=== PATIENT | female | born 2005 | race Caucasian/White ===

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

== ENCOUNTER 2025-01-27 15:34 | Outpatient (OUT) | payer BC, OTHER, SELFPAY ==
[2025-01-27 16:00] LABS: Basophils Absolute Auto 0.1 10^3/uL (0.0-0.1); Basophils Percent Auto 0.8 % (0.2-2.0); Eosinophils Absolute Auto 0.2 10^3/uL (0.0-0.7); Eosinophils Percent Auto 3.4 % (0.9-7.0); Hematocrit 37.4 % (36.0-48.0); Hemoglobin 12.4 g/dL (12.0-16.0); Immature Granulocytes Abs Auto 0.01 10^3/uL (0.00-0.03); Immature Granulocytes Pct Auto 0.2 % (0.0-0.5); Lymphocytes Absolute Auto 1.6 10^3/uL (1.2-3.8); Lymphocytes Percent Auto 25.7 % (20.5-60.0); Mean Corpuscular HGB Conc 33.2 g/dL (29.9-35.2); Mean Corpuscular Volume 90.6 fL (81.0-99.0); Mean Platelet Volume 8.6 fL (9.5-13.5); Monocytes Absolute Auto 0.7 10^3/uL (0.3-0.8); Monocytes Percent Auto 10.2 % (1.7-12.0); Neutrophils Absolute Auto 3.8 10^3/uL (1.4-6.5); Neutrophils Percent Auto 59.7 % (43.0-75.0); Platelet Count 285 10^3/uL (150-450); Red Blood Count 4.13 10^6/uL (4.20-5.40); Red Cell Distribution Width 12.9 % (11.0-15.0); White Blood Count 6.4 10^3/uL (4.0-11.0)
[2025-01-27 16:34] LABS: Percent Iron Saturation 33.9 %
[2025-01-27 16:44] LABS: Alanine Aminotransferase 22 U/L (14-59); Albumin Globulin Ratio 1.2; Albumin Level 4.3 g/dL (3.4-5.0); Alkaline Phosphatase 74 U/L (46-116); Aspartate Amino Transferase 15 U/L (15-37); BUN Creatinine Ratio 17.6; Bilirubin Direct 0.1 mg/dL (0.0-0.2); Bilirubin Total 0.6 mg/dL (0.2-1.0); Calcium 9.5 mg/dL (8.5-10.1); Carbon Dioxide 26.8 mmol/L (21.0-32.0); Chloride 104 mmol/L (98-107); Estimated GFR (African America >60 (>=60 mL/min/1.73m^2); Estimated GFR (Non-African Ame >60 (>=60 mL/min/1.73m^2); Globulin 3.7 g/dL; Glucose 90 mg/dL (74-106); Potassium 3.8 mmol/L (3.5-5.1); Sodium 138 mmol/L (136-145)
[2025-01-27 16:47] LABS: Free T4 1.01 ng/dL (0.78-1.34)
[2025-01-29 04:07] LABS: Vitamin B12 597 pg/mL (232-1245)
== END 2025-01-27 15:35 | disposition home or self-care (01) ==
PROVIDERS: PCP Family Medicine; Visit Provider Family Medicine
DX: Z00.00 Encounter for general adult medical examination without abnormal findings (principal); G90.9 Disorder of the autonomic nervous system, unspecified; R53.83 Other fatigue
CPT/HCPCS: 36415; 80048; 80076; 82607; 82728; 83540; 83550; 84439; 84443; 85025

== ENCOUNTER 2025-02-11 12:03 | Outpatient (OUT) | payer BC, OTHER, SELFPAY ==
--- OUTSIDE RECORDS SUMMARY | 2025-02-10 16:35 | XMS_ITS | CCD ---
Author Organization [facility] Care Team Providers Care [employer] Technician Name Role Phone DR DESIREE PEARL Attending Unavailable DR DESIREE PEARL Admitting Unavailable DR ARMEN MORRIS Consulting Unavailable DR DESIREE PEARL Consulting Unavailable Medications Current Medications Medication Drug Class(es) Dates Sig (Normalized) Sig (Original) cephalexin 500 mg oral capsule (1 source) Cephalosporin Antibacterial Start: 05-15-2024 take 500 mg by mouth twice daily Cephalexin Active 500 MG PO Twice daily 14 7 May 15, 2024 12:00am nabumetone 500 mg oral tablet (1 source) Nonsteroidal Anti-inflammatory Drug Start: 05-15-2024 Nabumetone Active MG PO May 15, 2024 12:00am Problems Problem Classification Problem Date Documented Da te Episodic/Chronic Other gastrointestinal disorders (1 source) Other constipation; Translations: [OTHER CONSTIPATION] Onset: 03-06-2022 Episodic Poisoning by nonmedicinal substances (2 sources) Bee sting; Translations: [Toxic effect of venom of bees, accidental (unintentional), initial encounter] 05-15-2024 Episodic Results Test Name Value Interpretation Reference Range Facil ity CBC AUTO DIFFon 03-01-2022 BASO # 0.1 103/ul Normal 0.0-0.1 [facility] Comment on above: Performed By: #### C BC #### [facility] [address] [address] [address] Jay Stewart Basophils/100 WBC (Bld) 0.6 % Normal 0.2-2.0 [facility] Comment on above: Performed By: #### C BC #### [facility] [address] [address] [address] Jay Stewart EO # 0.1 103/ul Normal 0.0-0.7 [facility] Comment on above: Performed By: #### C BC #### [facility] [address] [place] [address] Dr. Jay Stewart Eosinophils/100 WBC (Bld) 0.6 % Critically low 0.9-7.0 [facility] Comment on above: Performed By: #### C BC #### [facility] [address] [place] [address] Dr. Jay Stewart Erythrocyte distribution width (RBC) [Ratio] 13.0 % Normal 11.0-15.0 [facility] Comment on above: Performed By: #### C BC #### [facility] [address] [place] [address] Dr. Jay Stewart Hematocrit (Bld) [Volume fraction] 41.8 % Normal 36.0-48.0 [facility] Comment on above: Performed By: #### C BC #### [facility] [address] [place] [address] Dr. Jay Stewart Hemoglobin (Bld) [Mass/Vol] 13.9 g/dL Normal 12.0-16.0 [facility] Comment on above: Performed By: #### C BC #### [facility] [address] [place] [address] Dr. Jay Stewart IG # 0.03 10e3/ul Normal 0.00-0.03 [facility] Comment on above: Performed By: #### C BC #### [facility] [address] [place] [address] Dr. Jay Stewart IG % 0.3 % Normal 0.0-0.5 [facility] Comment on above: Performed By: #### C BC #### [facility] [address] [place] [address] Dr. Jay Stewart LYMPH # 1.9 103/ul Normal 1.2-3.8 [facility] Comment on above: Performed By: #### C BC #### [facility] [address] [place] [address] Dr. Jay Stewart Lymphocytes/100 WBC (Bld) 18.0 % Critically low 20.5-60.0 [facility] Comment on above: Performed By: #### C BC #### [facility] [address] [place] [address] Dr. Jay Stewart MANUAL DIFF REQ NO Normal [facility] Comment on above: Performed By: #### C BC #### [facility] [address] [place] [address] Dr. Jay Stewart MCH (RBC) [Entitic mass] 30.4 pg Normal 26.7-34.0 [facility] Comment on above: Performed By: #### C BC #### [facility] [address] [place] [address] Dr. Jay Stewart MCHC (RBC) [Mass/Vol] 33.3 g/dL Normal 29.9-35.2 [facility] Comment on above: Performed By: #### C BC #### [facility] [address] [place] [address] Dr. Jay Stewart MCV (RBC) [Entitic vol] 91.5 fL Normal 79.1-95.6 [facility] Comment on above: Performed By: #### C BC #### [facility] [address] [place] [address] Dr. Jay Stewart MONO # 0.7 103/ul Normal 0.3-0.8 [facility] Comment on above: Performed By: #### C BC #### [facility] [address] [place] [address] Dr. Jay Stewart Monocytes/100 WBC (Bld) 6.3 % Normal 1.7-12.0 [facility] Comment on above: Performed By: #### C BC #### [facility] [address] [place] [address] Dr. Jay Stewart NEUT # 7.7 103/ul Critically high 1.4-6.5 [facility] Comment on above: Performed By: #### C BC #### [facility] [address] [place] [address] Dr. Jay Stewart Neutrophils/100 WBC (Bld) 74.2 % Normal 43.0-75.0 [facility] Comment on above: Performed By: #### C BC #### [facility] [address] [place] [address] Dr. Jay Stewart Platelet mean volume (Bld) [Entitic vol] 8.9 fL Critically low 9.5-13.5 [facility] Comment on above: Performed By: #### C BC #### [facility] [address] [place] [address] Dr. Jay Stewart PLT 277 103/ul Normal 150-450 [facility] Comment on above: Performed By: #### C BC #### [facility] [address] [address] [address] Jay Stewart RBC 4.57 106/ul Normal 3.40-5.30 [facility] Comment on above: Performed By: #### C BC #### [facility] [address] [place] [address] Dr. Jay Stewart WBC 10.4 103/ul Normal 4.0-11.0 [facility] Comment on above: Performed By: #### C BC #### [facility] [address] [place] [address] Dr. Jay Stewart LIVER PROFILEon 03-01-2022 Albumin [Mass/Vol] 5.0 g/dL Normal 3.4-5.0 [facility] Comment on above: Performed By: #### T JERROD, LIVER, BMP #### [facility] [address] [place] [address] Dr. Jay Stewart Albumin/Globulin [Mass ratio] 1.3 {ratio} Normal [facility] Comment on above: Performed By: #### T JERROD, LIVER, BMP #### [facility] [address] [place] [address] Dr. Jay Stewart ALP [Catalytic activity/Vol] 84 U/L Normal 65-260 [facility] Comment on above: Performed By: #### T JERROD, LIVER, BMP #### [facility] [address] [place] [address] Dr. Jay Stewart ALT [Catalytic activity/Vol] 14 U/L Normal 14-59 [facility] Comment on above: Performed By: #### T JERROD, LIVER, BMP #### [facility] [address] [address] [address] Jay Stewart AST [Catalytic activity/Vol] 12 U/L Critically low 15-37 [facility] Comment on above: Performed By: #### T , LIVER, BMP #### [facility] [address] [place] [address] Dr. Jay Stewart BILI, CONJUGATED 0.3 mg/dL Normal 0.0-0.3 [facility] Comment on above: Performed By: #### T , LIVER, BMP #### [facility] [address] [place] [address] Dr. Jay Stewart Bilirubin [Mass/Vol] 1.7 mg/dL Critically high 0.2-1.3 [facility] Comment on above: Performed By: #### T , LIVER, BMP #### [facility] [address] [place] [address] Dr. Jay Stewart Globulin (S) [Mass/Vol] 3.9 g/dL Normal [facility] Comment on above: Performed By: #### T , LIVER, BMP #### [facility] [address] [place] [address] Dr. Jay Stewart Protein [Mass/Vol] 8.9 g/dL Critically high 6.1-8.2 [facility] Comment on above: Performed By: #### T , LIVER, BMP #### [facility] [address] [place] [address] Dr. Jay Stewart PROF CHEM 8 (BAS METB)on Anion gap [Moles/Vol] 14.9 mmol/L Normal [facility] Comment on above: Performed By: #### T , LIVER, BMP #### [facility] [address] [place] [address] Dr. Jay Stewart Calcium [Mass/Vol] 9.4 mg/dL Normal 8.5-10.1 [facility] Comment on above: Performed By: #### T , LIVER, BMP #### [facility] [address] [place] [address] Dr. Jay Stewart Chloride [Moles/Vol] 102 mmol/L Normal 98-107 [facility] Comment on above: Performed By: #### T JERROD, LIVER, BMP #### [facility] [address] [address] [address] Jay Stewart CO2 [Moles/Vol] 25.5 mmol/L Normal 22.0-30.0 [facility] Comment on above: Performed By: #### T JERROD, LIVER, BMP #### [facility] [address] [place] [address] Dr. Jay Stewart Creatinine [Mass/Vol] 0.78 mg/dL Normal 0.52-1.04 [facility] Comment on above: Performed By: #### T JERROD, LIVER, BMP #### [facility] [address] [place] [address] Dr. Jay Stewart Glucose [Mass/Vol] 91 mg/dL Normal 74-106 [facility] Comment on above: Performed By: #### T JERROD, LIVER, BMP #### [facility] [address] [place] [address] Dr. Jay Stewart Potassium [Moles/Vol] 4.4 mmol/L Normal 3.4-5.0 [facility] Comment on above: Performed By: #### T JERROD, LIVER, BMP #### [facility] [address] [place] [address] Dr. Jay Stewart Sodium [Moles/Vol] 138 mmol/L Normal 137-145 [facility] Comment on above: Performed By: #### T JERRDO, LIVER, BMP #### [facility] [address] [place] [address] Dr. Jay Stewart Urea nitrogen [Mass/Vol] 14.0 mg/dL Normal 6.4-19.3 [facility] Comment on above: Performed By: #### T JERROD, LIVER, BMP #### [facility] [address] [place] [address] Dr. Jay Stewart Urea nitrogen/Creatinine [Mass ratio] 17.9 mg/mg Normal [facility] Comment on above: Performed By: #### T JERROD, LIVER, BMP #### [facility] [address] [place] [address] Dr. Jay Stewart TSHon 03-01-2022 TSH 2.496 uIU/mL Normal 0.430-3.750 [facility] Comment on above: Performed By: #### T JERROD, LIVER, BMP #### [facility] [address] [address] [address] Jay Stewart TSH RANGE SEE BELOW Normal [facility] Comment on above: Result Comment: <0.3 4 UIU/ml HYPERTHYROID 0.34-5.60 UIU/ml EUTHYROID >5.60 UIU/ml HYPOTHYROID Performed By: #### T JERROD, LIVER, BMP #### [facility] [address] [address] [address] Jay Stewart XR ABD FLAT_UPon 03-01-2022 XR ABD FLAT_UP EXAMINATION: XR ABD FLAT_UP HISTORY: Constipation , lower abdominal pain COMPARISON: No relevant comparison available. FINDINGS: BOWEL GAS PATTERN: Moderate large amount of stool throughout the colon. No abnormal bowel dilation or obstruction. FREE AIR: None. CALCIFICATIONS: None significant. BONES: No fracture or visible bone lesion. OTHER: Thin spiral structure overlying the right pelvis which appears to be outside of the cecum, and most likely represents overlying artifact such as a hair band. IMPRESSION: 1. No visible obstruction. Moderate large stool burden. 2. Suspect artifact overlying right pelvis. If clinical concern consider follow-up radiograph. Electronically authenticated by: ARMEN MORRIS Date: 2022-03-01 16:57 Normal [facility] Vital Signs Date Time Vital Sign Value Performing Clinician Oleg phan 05-15-2024 16:42-0400 Body height 147.32 cm [facility] 05-15-2024 16:42-0400 Body mass index (BMI) [Percentile] Per age and sex 46.3 % [facility] 05-15-2024 16:42-0400 Body mass index (BMI) [Ratio] 21.3 kg/m2 [facility] 05-15-2024 16:42-0400 Body temperature 97.5 [degF] [facility] 05-15-2024 16:42-0400 Body weight 46.32 kg [facility] 05-15-2024 16:42-0400 Diastolic blood pressure 81 mm[Hg] [facility] 05-15-2024 16:42-0400 Heart rate 90 /min [facility] 05-15-2024 16:42-0400 Respiratory rate 18 /min [facility] 05-15-2024 16:42-0400 SaO2% (BldA) [Mass fraction] 99 % [facility] 05-15-2024 16:42-0400 Systolic blood pressure 117 mm[Hg] [facility] Encounters Encounter Date Encounter Type Care Provider Facility Start: 05-15-2024 End: 05-15-2024 ambulatory [facility] Work Phone: Start: 05-15-2024 End: 05-15-2024 Patient encounter procedure [facility] Work Phone: Start: 03-06-2022 Encounter for routin e child health examination without abnormal findings DR DESIREE PEARL [facility] Start: 03-01-2022 End: 03-02-[address] DESIREE PEARL Facility:[facility] Start: 03-01-2022 End: 03-02-2022 Encounter for routine child health examination without abnormal findings DR DESIREE PEARL Facility:[facility] Plan of Treatment Date Care Activity Detail Author [facility] Payers Date Payer Category Payer Unknown [id number] 1959 Unknown [id number] 1959 Unknown [id number] Unknown [place]/BS [id number] Social History Date Type Detail Facility Tobacco smoking stat us NHIS Unknown if ever smoked [facility] Work Phone: Start: 2005 Sex Assigned At Female F [facility] Evaluation note Note Date & Type Note Facility Evaluation note Diagnosis Onset Date Bee sting reaction acute [facility] Work Phone: Summary Purpose Family History No Family History Records Found Advance Directives Advance Directive Response Recorded Date/ Time Advance Directives No May 15 4:31pm Chief Complaint and Reason for Visit Chief Complaint bee sting right anastasia om right foot Reason for Visit Bee sting reaction Additional Source Comments INFORMATION SOURCE (unrecogn ized section and content) DATE CREATED AUTHOR 03/07/2022 [facility] Teams (unrecognized sec tion and content) Team Status: Active Member Role Status Dates NON STAFF Primary Care Provider Active Team Status: Inactive Member Role Status Dates Angela Quigley APRN Attending Provider Active S tart: May 15, 2024 End: May 15, 2024 NON STAFF Primary Care Provider Active Start: May 15, 2024 End: May 15, 2024 Goals (unrecognized section and content) Goals may be documented in a n alternate section FOR RECORDS PERTAINING TO PATIENTS WHO ARE OR HAVE BEEN ENROLLED IN A CHEMICAL DEPENDENCY/SUBSTANCEABUSE PROGRAM, SOME INFORMATION MAY BE OMITTED. This clinical summary was aggregated from multiple sources. Caution should be exercised in using it in the provision of clinical care. This summary normalizes information from multiple sources, and as a consequence, information in this document may materially change the coding, format and clinical context of patient data. In addition, data may be omitted in some cases. CLINICAL DECISIONS SHOULD BE BASED ON THE PRIMARY CLINICAL RECORDS. [facility] [employer] provides no warranty or guarantee of the accuracy or completeness of information in this document.
[2025-02-11 14:37] LABS: Basophils Percent Auto 0.6 % (0.2-2.0); Eosinophils Absolute Auto 0.1 10^3/uL (0.0-0.7); Eosinophils Percent Auto 1.4 % (0.9-7.0); Hematocrit 37.3 % (36.0-48.0); Hemoglobin 12.6 g/dL (12.0-16.0); Immature Granulocytes Abs Auto 0.01 10^3/uL (0.00-0.03); Immature Granulocytes Pct Auto 0.1 % (0.0-0.5); Lymphocytes Percent Auto 28.4 % (20.5-60.0); Mean Corpuscular HGB Conc 33.8 g/dL (29.9-35.2); Mean Corpuscular Hemoglobin 30.4 pg (26.7-34.0); Mean Corpuscular Volume 90.1 fL (81.0-99.0); Monocytes Absolute Auto 0.7 10^3/uL (0.3-0.8); Monocytes Percent Auto 10.6 % (1.7-12.0); Neutrophils Absolute Auto 4.1 10^3/uL (1.4-6.5); Neutrophils Percent Auto 58.9 % (43.0-75.0); Platelet Count 218 10^3/uL (150-450); Red Blood Count 4.14 10^6/uL (4.20-5.40); Red Cell Distribution Width 13.6 % (11.0-15.0); White Blood Count 6.9 10^3/uL (4.0-11.0)
[2025-02-11 15:03] LABS: Internal Control Within Normal Limits; Mono Screen NEGATIVE (NEGATIVE)
--- OUTSIDE RECORDS SUMMARY | 2025-02-12 12:12 | XMS_ITS | CCD ---
Author Organization [facility] Care Team Providers Care Compliance Vice President Name Role Phone DR DESIREE PEARL Attending [...] 03-01-2022 BASO # 0.1 103/ul Normal 0.0-0.1 [facility] Comment on above: Performed By: #### C BC #### [facility] [address] [address] [address] Jay Stewart Basophils/100 WBC (Bld) 0.6 % Normal 0.2-2.0 [facility] Comment on above: Performed By: #### C BC #### [facility] [address] [address] [address] Jay Stewrat EO # 0.1 103/ul Normal 0.0-0.7 [facility] Comment on above: Performed By: #### C BC #### [facility] [address] [place] [address] Dr. Jay Stewart Eosinophils/100 WBC (Bld) 0.6 % Critically low 0.9-7.0 [facility] Comment on above: Performed By: #### C BC #### [facility] [address] [place] [address] Dr. Jay Stewart Erythrocyte distribution width (RBC) [Ratio] 13.0 % Normal 11.0-15.0 [facility] Comment on above: Performed By: #### C BC #### [facility] [address] [place] [address] Dr. Jay Stewart Hematocrit (Bld) [Volume fraction] 41.8 % Normal 36.0-48.0 [facility] Comment on above: Performed By: #### C BC #### [facility] [address] [place] [address] Dr. Jay Stewart Hemoglobin (Bld) [Mass/Vol] 13.9 g/dL Normal 12.0-16.0 [facility] Comment on above: Performed By: #### C BC #### [facility] [address] [place] [address] Dr. Jay Stewart IG # 0.03 10e3/ul Normal 0.00-0.03 [facility] Comment on above: Performed By: #### C BC #### [facility] [address] [place] [address] Dr. Jay Stewart IG % 0.3 % Normal 0.0-0.5 [facility] Comment on above: Performed By: #### C BC #### [facility] [address] [place] [address] Dr. Jay Stewart LYMPH # 1.9 103/ul Normal 1.2-3.8 [facility] Comment on above: Performed By: #### C BC #### [facility] [address] [place] [address] Dr. Jay Stewart Lymphocytes/100 WBC (Bld) 18.0 % Critically low 20.5-60.0 [facility] Comment on above: Performed By: #### C BC #### [facility] [address] [place] [address] Dr. Jay Stewart MANUAL DIFF REQ NO Normal [facility] Comment on above: Performed By: #### C BC #### [facility] [address] [place] [address] Dr. Jay Stewart MCH (RBC) [Entitic mass] 30.4 pg Normal 26.7-34.0 [facility] Comment on above: Performed By: #### C BC #### [facility] [address] [place] [address] Dr. Jay Stewart MCHC (RBC) [Mass/Vol] 33.3 g/dL Normal 29.9-35.2 [facility] Comment on above: Performed By: #### C BC #### [facility] [address] [place] [address] Dr. Jay Stewart MCV (RBC) [Entitic vol] 91.5 fL Normal 79.1-95.6 [facility] Comment on above: Performed By: #### C BC #### [facility] [address] [place] [address] Dr. Jay Stewart MONO # 0.7 103/ul Normal 0.3-0.8 [facility] Comment on above: Performed By: #### C BC #### [facility] [address] [place] [address] Dr. Jay Stewart Monocytes/100 WBC (Bld) 6.3 % Normal 1.7-12.0 [facility] Comment on above: Performed By: #### C BC #### [facility] [address] [place] [address] Dr. Jay Stewart NEUT # 7.7 103/ul Critically high 1.4-6.5 [facility] Comment on above: Performed By: #### C BC #### [facility] [address] [place] [address] Dr. Jay Stewart Neutrophils/100 WBC (Bld) 74.2 % Normal 43.0-75.0 [facility] Comment on above: Performed By: #### C BC #### [facility] [address] [place] [address] Dr. Jay Stewart Platelet mean volume (Bld) [Entitic vol] 8.9 fL Critically low 9.5-13.5 [facility] Comment on above: Performed By: #### C BC #### [facility] [address] [place] [address] Dr. Jay Stewart PLT 277 103/ul Normal 150-450 [facility] Comment on above: Performed By: #### C BC #### [facility] [address] [address] [address] Jay Stewart RBC 4.57 106/ul Normal 3.40-5.30 [facility] Comment on above: Performed By: #### C BC #### [facility] [address] [place] [address] Dr. Jay Stewart WBC 10.4 103/ul Normal 4.0-11.0 [facility] Comment on above: Performed By: #### C BC #### [facility] [address] [place] [address] Dr. Jay Stewart LIVER PROFILEon 03-01-2022 Albumin [Mass/Vol] 5.0 g/dL Normal 3.4-5.0 [facility] Comment on above: Performed By: #### T JERROD, LIVER, BMP #### [facility] [address] [place] [address] Dr. Jay Stewart Albumin/Globulin [Mass ratio] 1.3 {ratio} Normal [facility] Comment on above: Performed By: #### T JERROD, LIVER, BMP #### [facility] [address] [place] [address] Dr. Jay Stewart ALP [Catalytic activity/Vol] 84 U/L Normal 65-260 [facility] Comment on above: Performed By: #### T JERROD, LIVER, BMP #### [facility] [address] [place] [address] Dr. Jay Stewart ALT [Catalytic activity/Vol] 14 U/L Normal 14-59 [facility] Comment on above: Performed By: #### T JERROD, LIVER, BMP #### [facility] [address] [address] [address] Jay Stewart AST [Catalytic activity/Vol] 12 U/L Critically low 15-37 [facility] Comment on above: Performed By: #### T , LIVER, BMP #### [facility] [address] [place] [address] Dr. Jay Stewart BILI, CONJUGATED 0.3 mg/dL Normal 0.0-0.3 [facility] Comment on above: Performed By: #### T , LIVER, BMP #### [facility] [address] [place] [address] Dr. Jay Stewart Bilirubin [Mass/Vol] 1.7 mg/dL Critically high 0.2-1.3 [facility] Comment on above: Performed By: #### T , LIVER, BMP #### [facility] [address] [place] [address] Dr. Jay Stewart Globulin (S) [Mass/Vol] 3.9 g/dL Normal [facility] Comment on above: Performed By: #### T , LIVER, BMP #### [facility] [address] [place] [address] Dr. Jay Stewart Protein [Mass/Vol] 8.9 g/dL Critically high 6.1-8.2 [facility] Comment on above: Performed By: #### T , LIVER, BMP #### [facility] [address] [place] [address] Dr. Jay Stewart PROF CHEM 8 (BAS METB)on Anion gap [Moles/Vol] 14.9 mmol/L Normal [facility] Comment on above: Performed By: #### T , LIVER, BMP #### [facility] [address] [place] [address] Dr. Jay Stewart Calcium [Mass/Vol] 9.4 mg/dL Normal 8.5-10.1 [facility] Comment on above: Performed By: #### T , LIVER, BMP #### [facility] [address] [place] [address] Dr. Jay Stewart Chloride [Moles/Vol] 102 mmol/L Normal 98-107 [facility] Comment on above: Performed By: #### T JERROD, LIVER, BMP #### [facility] [address] [address] [address] Jay Stewart CO2 [Moles/Vol] 25.5 mmol/L Normal 22.0-30.0 [facility] Comment on above: Performed By: #### T JERROD, LIVER, BMP #### [facility] [address] [place] [address] Dr. Jay Stewart Creatinine [Mass/Vol] 0.78 mg/dL Normal 0.52-1.04 [facility] Comment on above: Performed By: #### T JERROD, LIVER, BMP #### [facility] [address] [place] [address] Dr. Jay Stewart Glucose [Mass/Vol] 91 mg/dL Normal 74-106 [facility] Comment on above: Performed By: #### T JERROD, LIVER, BMP #### [facility] [address] [place] [address] Dr. Jay Stewart Potassium [Moles/Vol] 4.4 mmol/L Normal 3.4-5.0 [facility] Comment on above: Performed By: #### T JERROD, LIVER, BMP #### [facility] [address] [place] [address] Dr. Jay Stewart Sodium [Moles/Vol] 138 mmol/L Normal 137-145 [facility] Comment on above: Performed By: #### T JERROD, LIVER, BMP #### [facility] [address] [place] [address] Dr. Jay Stewart Urea nitrogen [Mass/Vol] 14.0 mg/dL Normal 6.4-19.3 [facility] Comment on above: Performed By: #### T JERROD, LIVER, BMP #### [facility] [address] [place] [address] Dr. Jay Stewart Urea nitrogen/Creatinine [Mass ratio] 17.9 mg/mg Normal [facility] Comment on above: Performed By: #### T JERROD, LIVER, BMP #### [facility] [address] [place] [address] Dr. Jay Stewart TSHon 03-01-2022 TSH 2.496 uIU/mL Normal 0.430-3.750 [facility] Comment on above: Performed By: #### T JERROD, LIVER, BMP #### [facility] [address] [address] [address] Jay Stewart TSH RANGE SEE BELOW Normal [facility] Comment on above: Result Comment: <0.3 4 UIU/ml HYPERTHYROID 0.34-5.60 UIU/ml EUTHYROID >5.60 UIU/ml HYPOTHYROID Performed By: #### T JERROD, LIVER, BMP #### [facility] [address] [address] [address] Jay Stewart XR ABD FLAT_UPon 03-01-2022 [...] ARMEN MORRIS Date: 2022-03-01 16:57 Normal [facility] Vital Signs Date Time Vital Sign Value Performing Clinician Oleg phan 05-15-2024 16:42-0400 Body height 147.32 cm [facility] 05-15-2024 16:42-0400 Body mass index (BMI) [Percentile] Per age and sex 46.3 % [facility] 05-15-2024 16:42-0400 Body mass index (BMI) [Ratio] 21.3 kg/m2 [facility] 05-15-2024 16:42-0400 Body temperature 97.5 [degF] [facility] 05-15-2024 16:42-0400 Body weight 46.32 kg [facility] 05-15-2024 16:42-0400 Diastolic blood pressure 81 mm[Hg] [facility] 05-15-2024 16:42-0400 Heart rate 90 /min [facility] 05-15-2024 16:42-0400 Respiratory rate 18 /min [facility] 05-15-2024 16:42-0400 SaO2% (BldA) [Mass fraction] 99 % [facility] 05-15-2024 16:42-0400 Systolic blood pressure 117 mm[Hg] [facility] Encounters Encounter Date Encounter Type Care Provider Facility Start: 05-15-2024 End: 05-15-2024 ambulatory [facility] Work Phone: Start: 05-15-2024 End: 05-15-2024 Patient encounter procedure [facility] Work Phone: Start: 03-06-2022 Encounter for routin e child health examination without abnormal findings DR DESIREE PEARL [facility] Start: 03-01-2022 End: 03-02-[address] DESIREE PEARL Facility:[facility] Start: 03-01-2022 End: 03-02-2022 Encounter for routine child health examination without abnormal findings DR DESIREE PEARL Facility:[facility] Plan of Treatment Date Care Activity Detail Author [facility] Payers Date Payer Category Payer Unknown [id number] 1959 Unknown [id number] 1959 Unknown [id number] Unknown [place] BC/BS [id number] Social History Date Type Detail Facility Tobacco smoking stat us NHIS Unknown if ever smoked [facility] Work Phone: Start: 2005 Sex Assigned At Female [facility] Evaluation note Note Date & Type Note Facility Evaluation note Diagnosis Onset Date Bee sting reaction acute [facility] Work Phone: Summary Purpose Family History No Family History Records Found Advance Directives Advance Directive Response Recorded Date/ Time Advance Directives No May 15 4:31pm Chief Complaint and Reason for Visit Chief Complaint bee sting right anastasia om right foot Reason for Visit Bee sting reaction Additional Source Comments INFORMATION SOURCE (unrecogn ized section and content) DATE CREATED AUTHOR 03/07/2022 [facility] Teams (unrecognized sec tion and content) Team [...] BE BASED ON THE PRIMARY CLINICAL RECORDS. [facility] [employer] provides no warranty or guarantee of the accuracy or completeness of information in this document.
--- OUTSIDE RECORDS SUMMARY | 2025-02-12 12:14 | XMS_ITS | CCD ---
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 Jay Stewart Basophils/100 WBC (Bld) 0.6 % Normal 0.2-2.0 [facility] Comment on above: Performed By: #### C BC #### [facility] [address] [address] [address] Jay Stewart EO # 0.1 103/ul Normal 0.0-0.7 [facility] Comment on above: Performed By: #### C BC #### [facility] [address] [place] [address] Dr. Jay Stewart Eosinophils/100 WBC (Bld) 0.6 % Critically low 0.9-7.0 [facility] Comment on above: Performed By: #### C BC #### [facility] [address] [place] [address] Dr. Jay Stewart Erythrocyte distribution width (RBC) [Ratio] 13.0 % Normal 11.0-15.0 [facility] Comment on above: Performed By: #### C BC #### [facility] [address] [place] [address] Dr. Jay Stewart Hematocrit (Bld) [Volume fraction] 41.8 % Normal 36.0-48.0 [facility] Comment on above: Performed By: #### C BC #### [facility] [address] [place] [address] Dr. Jay Stewart Hemoglobin (Bld) [Mass/Vol] 13.9 g/dL Normal 12.0-16.0 [facility] Comment on above: Performed By: #### C BC #### [facility] [address] [place] [address] Dr. Jay Stewart IG # 0.03 10e3/ul Normal 0.00-0.03 [facility] Comment on above: Performed By: #### C BC #### [facility] [address] [place] [address] Dr. Jay Stewart IG % 0.3 % Normal 0.0-0.5 [facility] Comment on above: Performed By: #### C BC #### [facility] [address] [place] [address] Dr. Jay Stewart LYMPH # 1.9 103/ul Normal 1.2-3.8 [facility] Comment on above: Performed By: #### C BC #### [facility] [address] [place] [address] Dr. Jay Stewart Lymphocytes/100 WBC (Bld) 18.0 % Critically low 20.5-60.0 [facility] Comment on above: Performed By: #### C BC #### [facility] [address] [place] [address] Dr. Jay Stewart MANUAL DIFF REQ NO Normal [facility] Comment on above: Performed By: #### C BC #### [facility] [address] [place] [address] Dr. Jay Stewart MCH (RBC) [Entitic mass] 30.4 pg Normal 26.7-34.0 [facility] Comment on above: Performed By: #### C BC #### [facility] [address] [place] [address] Dr. Jay Stewart MCHC (RBC) [Mass/Vol] 33.3 g/dL Normal 29.9-35.2 [facility] Comment on above: Performed By: #### C BC #### [facility] [address] [place] [address] Dr. Jay Stewart MCV (RBC) [Entitic vol] 91.5 fL Normal 79.1-95.6 [facility] Comment on above: Performed By: #### C BC #### [facility] [address] [place] [address] Dr. Jay Stewart MONO # 0.7 103/ul Normal 0.3-0.8 [facility] Comment on above: Performed By: #### C BC #### [facility] [address] [place] [address] Dr. Jay Stewart Monocytes/100 WBC (Bld) 6.3 % Normal 1.7-12.0 [facility] Comment on above: Performed By: #### C BC #### [facility] [address] [place] [address] Dr. Jay Stewart NEUT # 7.7 103/ul Critically high 1.4-6.5 [facility] Comment on above: Performed By: #### C BC #### [facility] [address] [place] [address] Dr. Jay Stewart Neutrophils/100 WBC (Bld) 74.2 % Normal 43.0-75.0 [facility] Comment on above: Performed By: #### C BC #### [facility] [address] [place] [address] Dr. Jay Stewart Platelet mean volume (Bld) [Entitic vol] 8.9 fL Critically low 9.5-13.5 [facility] Comment on above: Performed By: #### C BC #### [facility] [address] [place] [address] Dr. Jay Stewart PLT 277 103/ul Normal 150-450 [facility] Comment on above: Performed By: #### C BC #### [facility] [address] [address] [address] Jay Stewart RBC 4.57 106/ul Normal 3.40-5.30 [facility] Comment on above: Performed By: #### C BC #### [facility] [address] [place] [address] Dr. Jay Stewart WBC 10.4 103/ul Normal 4.0-11.0 [facility] Comment on above: Performed By: #### C BC #### [facility] [address] [place] [address] Dr. Jay Stewart LIVER PROFILEon 03-01-2022 Albumin [Mass/Vol] 5.0 g/dL Normal 3.4-5.0 [facility] Comment on above: Performed By: #### T JERROD, LIVER, BMP #### [facility] [address] [place] [address] Dr. Jay Stewart Albumin/Globulin [Mass ratio] 1.3 {ratio} Normal [facility] Comment on above: Performed By: #### T JERROD, LIVER, BMP #### [facility] [address] [place] [address] Dr. Jay Stewart ALP [Catalytic activity/Vol] 84 U/L Normal 65-260 [facility] Comment on above: Performed By: #### T JERROD, LIVER, BMP #### [facility] [address] [place] [address] Dr. Jay Stewart ALT [Catalytic activity/Vol] 14 U/L Normal 14-59 [facility] Comment on above: Performed By: #### T JERROD, LIVER, BMP #### [facility] [address] [address] [address] Jay Stewart AST [Catalytic activity/Vol] 12 U/L Critically low 15-37 [facility] Comment on above: Performed By: #### T , LIVER, BMP #### [facility] [address] [place] [address] Dr. Jay Stewart BILI, CONJUGATED 0.3 mg/dL Normal 0.0-0.3 [facility] Comment on above: Performed By: #### T , LIVER, BMP #### [facility] [address] [place] [address] Dr. Jay Stewart Bilirubin [Mass/Vol] 1.7 mg/dL Critically high 0.2-1.3 [facility] Comment on above: Performed By: #### T , LIVER, BMP #### [facility] [address] [place] [address] Dr. Jay Stewart Globulin (S) [Mass/Vol] 3.9 g/dL Normal [facility] Comment on above: Performed By: #### T , LIVER, BMP #### [facility] [address] [place] [address] Dr. Jay Stewart Protein [Mass/Vol] 8.9 g/dL Critically high 6.1-8.2 [facility] Comment on above: Performed By: #### T , LIVER, BMP #### [facility] [address] [place] [address] Dr. Jay Stewart PROF CHEM 8 (BAS METB)on Anion gap [Moles/Vol] 14.9 mmol/L Normal [facility] Comment on above: Performed By: #### T , LIVER, BMP #### [facility] [address] [place] [address] Dr. Jay Stewart Calcium [Mass/Vol] 9.4 mg/dL Normal 8.5-10.1 [facility] Comment on above: Performed By: #### T , LIVER, BMP #### [facility] [address] [place] [address] Dr. Jya Stewart Chloride [Moles/Vol] 102 mmol/L Normal 98-107 [facility] Comment on above: Performed By: #### T JERROD, LIVER, BMP #### [facility] [address] [address] [address] Jay Stewart CO2 [Moles/Vol] 25.5 mmol/L Normal 22.0-30.0 [facility] Comment on above: Performed By: #### T JERROD, LIVER, BMP #### [facility] [address] [place] [address] Dr. aJy Stewart Creatinine [Mass/Vol] 0.78 mg/dL Normal 0.52-1.04 [facility] Comment on above: Performed By: #### T JERROD, LIVER, BMP #### [facility] [address] [place] [address] Dr. Jay Stewart Glucose [Mass/Vol] 91 mg/dL Normal 74-106 [facility] Comment on above: Performed By: #### T JERROD, LIVER, BMP #### [facility] [address] [place] [address] Dr. Jay Stewart Potassium [Moles/Vol] 4.4 mmol/L Normal 3.4-5.0 [facility] Comment on above: Performed By: #### T JERROD, LIVER, BMP #### [facility] [address] [place] [address] Dr. Jay Stewart Sodium [Moles/Vol] 138 mmol/L Normal 137-145 [facility] Comment on above: Performed By: #### T JERROD, LIVER, BMP #### [facility] [address] [place] [address] Dr. Jay Stewart Urea nitrogen [Mass/Vol] 14.0 mg/dL Normal 6.4-19.3 [facility] Comment on above: Performed By: #### T JERROD, LIVER, BMP #### [facility] [address] [place] [address] Dr. Jay Stewart Urea nitrogen/Creatinine [Mass ratio] 17.9 mg/mg Normal [facility] Comment on above: Performed By: #### T JERROD, LIVER, BMP #### [facility] [address] [place] [address] Dr. Jay Stewart TSHon 03-01-2022 TSH 2.496 uIU/mL Normal 0.430-3.750 [facility] Comment on above: Performed By: #### T JERROD, LIVER, BMP #### [facility] [address] [address] [address] Jay Stewart TSH RANGE SEE BELOW Normal [facility] Comment on above: Result Comment: <0.3 4 UIU/ml HYPERTHYROID 0.34-5.60 UIU/ml EUTHYROID >5.60 UIU/ml HYPOTHYROID Performed By: #### T JERROD, LIVER, BMP #### [facility] [address] [address] [address] Jay Stewart XR ABD FLAT_UPon 03-01-2022 [...] ARMEN MORRIS Date: 2022-03-01 16:57 Normal [facility] Vital Signs Date Time Vital Sign Value Performing Clinician Oleg phan 05-15-2024 16:42-0400 Body height 147.32 cm [facility] 05-15-2024 16:42-0400 Body mass index (BMI) [Percentile] Per age and sex 46.3 % [facility] 05-15-2024 16:42-0400 Body mass index (BMI) [Ratio] 21.3 kg/m2 [facility] 05-15-2024 16:42-0400 Body temperature 97.5 [degF] [facility] 05-15-2024 16:42-0400 Body weight 46.32 kg [facility] 05-15-2024 16:42-0400 Diastolic blood pressure 81 mm[Hg] [facility] 05-15-2024 16:42-0400 Heart rate 90 /min [facility] 05-15-2024 16:42-0400 Respiratory rate 18 /min [facility] 05-15-2024 16:42-0400 SaO2% (BldA) [Mass fraction] 99 % [facility] 05-15-2024 16:42-0400 Systolic blood pressure 117 mm[Hg] [facility] Encounters Encounter Date Encounter Type Care Provider Facility Start: 05-15-2024 End: 05-15-2024 ambulatory [facility] Work Phone: Start: 05-15-2024 End: 05-15-2024 Patient encounter procedure [facility] Work Phone: Start: 03-06-2022 Encounter for routin e child health examination without abnormal findings DR DESIREE PEARL [facility] Start: 03-01-2022 End: 03-02-[address] DESIREE PEARL Facility:[facility] Start: 03-01-2022 End: 03-02-2022 Encounter for routine child health examination without abnormal findings DR DESIREE PEARL Facility:[facility] Plan of Treatment Date Care Activity Detail Author [facility] Payers Date Payer Category Payer Unknown [id number] 1959 Unknown [id number] 1959 Unknown [id number] Unknown [employer] BC/BS [id number] Social History Date Type Detail Facility Tobacco smoking stat us NHIS Unknown if ever smoked [facility] Work Phone: Start: 2005 Sex Assigned At Female F [facility] Evaluation note Note Date & Type Note Facility Evaluation note Diagnosis Onset Date Bee sting reaction acute [facility] Work Phone: Summary Purpose Family History No Family History Records Found Advance Directives Advance Directive Response Recorded Date/ Time Advance Directives No May 15 4:31pm Chief Complaint and Reason for Visit Chief Complaint bee sting right anastasia om right foot Reason for Visit Bee sting reaction Additional Source Comments INFORMATION SOURCE (unrecogn ized section and content) DATE CREATED AUTHOR 03/07/2022 [facility] Teams (unrecognized sec tion and content) [...] BE BASED ON THE PRIMARY CLINICAL RECORDS. [facility] [employer] provides no warranty or guarantee of the accuracy or completeness of information in this document.
[2025-02-12 14:08] LABS: EBV Ab VCA, IgG 20.7 U/mL (0.0-17.9); EBV Ab VCA, IgM <36.0 U/mL (0.0-35.9); EBV Nuclear Antigen Ab, IgG <18.0 U/mL (0.0-17.9)
[2025-02-12 16:09] LABS: Albumin 4.5 g/dL (2.9-4.4); Alpha-1-Globulin 0.3 g/dL (0.0-0.4); Alpha-2-Globulin 0.7 g/dL (0.4-1.0); Gamma Globulin 1.2 g/dL (0.4-1.8); Protein, Total 7.4 g/dL (6.0-8.5)
== END 2025-02-11 12:04 | disposition home or self-care (01) ==
LOC: LAB 02-12 12:03
PROVIDERS: PCP Family Medicine; Visit Provider Family Medicine
DX: R53.83 Other fatigue (principal); G90.9 Disorder of the autonomic nervous system, unspecified
CPT/HCPCS: 36415; 84155; 84165; 85025; 86308; 86664; 86665

== ENCOUNTER 2025-10-12 14:27 | Outpatient (OUT) | payer BC, OTHER, SELFPAY ==
--- NOTE | 2025-10-12 14:29 | MR_ITS ---
[address] [place] [id number] Patient Name: CHRIS GARCIA MRN: [id number] date: 2005 Sex: F Assigned Patient Location: MRI Current Patient Location: MRI Accession/Order Number: [id number] Exam Date: 10/12/2025 15:05 Report Date: 10/12/2025 16:56 At the request of: DESIREE PEARL MD Procedure: MR head/brain wo/w con MR head/brain wo/w con 10/12/2025 4:08 PM SIGN AND SYMPTOMS: ^Chronic Migraine Without Aura PROTOCOL: Multiplanar multisequence MR images of the brain with and without IV contrast CONTRAST: 80 mL of intravenous Dotarem COMPARISON: None. FINDINGS: Extra axial spaces: Age appropriate. Hemorrhage: None. Ventricular system: Within normal limits. Basal cisterns: Within normal limits and not effaced. Cerebral parenchyma: Normal in signal. Midline shift: None.. Cerebellum: Within normal limits. Brainstem: Within normal limits. OTHER: Calvarium: Normal marrow signal. Vascular system: Satisfactory flow voids within the anterior and posterior circulation. Visualized Paranasal sinuses: Within normal limits. Visualized Orbits: Within normal limits. Visualized upper cervical spine: Within normal limits. Sella and skull base: Within normal limits. MR/MR head/brain wo/w con IMPRESSION: No acute intracranial pathology or abnormal postcontrast enhancement. Impression dictated by: Jamey Resendez M.D. 10/12/2025 4:56 PM Dictation Location: [address] [address] Electronically authenticated by: [id number] Y Date: 10/12/2025 16:56
--- OUTSIDE RECORDS SUMMARY | 2025-10-12 14:35 | XMS_ITS | CCD ---
Author Organization [facility] Care Team Providers Care Coal Unloader Name Role Phone DR KEVIN PEARL Attending Unavailable DAE, DR KEVIN Gillette Admitting Unavailable ZIBALYEEER, DR GILBERTO Rodriguez Consulting Unavailable DAE, DR KEVIN Gillette Consulting Unavailable Kevin Pearl MD Primary Care Provider Dae GONGORA, Kevin Unavailable Kevin Pearl MD Unavailable KEVIN PEARL Attending Unavailable DAE, KEVIN Attending Unavailable DAE, KEVIN Attending Unavailable DAE, KEVIN Attending Unavailable DAE, KEVIN Attending Unavailable Aftab Barboza DO Attending Provider Kevin Pearl MD Primary Care Provider Kevin Pearl MD Primary Care Provider Kevin Pearl MD Unavailable Kevin Pearl MD Unavailable Aftab Barboza DO Attending Provider Kevin Pearl MD Primary Care Provider Kevin Pearl MD Attending Provider Medications Current Medications MedicationDrug Class(es)DatesSig (Normalized)Sig (Original)acetaminophen 325 mg / butalbital 50 mg / caffeine 40 mg oral tablet (7 sources)Barbiturate, Central Nervous System Stimulant, MethylxanthineStart: 35-85-1242thvq 1 tablet by mouth four times daily as needed for headache znvxnnjmha-fakbzauzaaplk-nwnlpoxs 50-325-40 MG tablet Indications: Chronic rhinosinusitis Take 1 tablet by mouth 4 (four) times a day as needed for headaches 30 tablet 1 01/26/2025 Jndjxejbc808902 0.3 ml EPINEPHrine 1 mg/ml auto-injector (7 sources)alpha-Adrenergic Agonist, beta-Adrenergic Agonist, Catecholamine Start: 58-54-3217JIYPMHZqegr (Epipen) 0.3 MG/0.3ML injection syringe Indications: Bee sting reaction, accidental or unintentional, subsequent encounter Inject 0.3 mL (0.3 mg) as directed 1 (one) time for 1 dose use as directed for allergic reaction and then call 911 1 each 2 05/26/2024 Active Ethinyl Estradiol / Ferrous fumarate / Norethindrone (2 sources)EstrogenStart: 74-25-3568jyjbqlszmhlev-ethinyl estradiol-iron (Microgestin FE 1.5/30) 1.5-30 MG-MCG tablet Indications: Dysfunctional uterine bleeding Take 1 tablet by mouth Daily 84 tablet 3 03/01/2025 Active fludrocortisone acetate 0.1 mg oral tablet (7 sources)Start: 34-68-4246cpfw 1 tablet by mouth once dailyfludrocortisone (Florinef) 0.1 MG tablet Indications: Autonomic dysfunction Take 1 tablet (0.1 mg) by mouth Daily 30 tablet 3 01/26/2025 ActivepredniSONE 10 mg oral tablet (3 sources)Start: 08-26-2024 End: 77-61-0013ysbh 6 tablets by mouth once daily, then take 4 tablets by mouth once daily, then take 2 tablets bymouth once daily, then take 1 tablet by mouth once dailypredniSONE (Deltasone) 10 MG tablet Indications: Rib pain 6 PO daily x 3 days, 4 PO daily x 3 days,2 PO daily x 3 days, 1 PO daily x 3 days 39 tablet 08/26/2024 01/26/2025 Discontinuedrizatriptan 5 mg disintegrating oral tablet (2 sources)Serotonin-1b and Serotonin-1d Receptor AgonistStart: 03-01-2025 rizatriptan BOW STRING MAKER (Maxalt-BOW STRING MAKER) 5 MG disintegrating tablet Indications: Migraine without aura and without status migrainosus, not intractable (CMS/HCC) Take 1 tablet (5 mg) by mouth 1 (one) time if needed for migraine May repeat in 2 hours if unresolved. Do not exceed 30 mg in 24 hours. 9 tablet 2 03/01/2025 Active Start: 82-29-7233fwqqxdexnfy BOW STRING MAKER (Maxalt-BOW STRING MAKER) 5 MG disintegrating tablet Indications: Migraine without aura and without status migrainosus, not intractable (CMS/HCC) Take 1 tablet (5 mg) by mouth 1 (one) time if needed for migraine May repeat in 2 hours if unresolved. Do not exceed 30 mg in 24 hours. 9 tablet 2 03/01/2025 Active Completed/Discontinued Medications MedicationDrug Class(es)DatesSig (Normalized)Sig (Original)Atogepant (2 sources)Start: 07-14-2025 End: 44-80-9806kjtw 1 tablet by mouth once dailyAtogepant (Qulipta) 60 mg tablet Discontinued 60 MG PO Daily July 13, 2025 11:00pm September 29, 2025 8:57amStart: 09-56-4377dpiw 1 tablet by mouth once dailyAtogepant (Qulipta) 60 mg tablet Active 60 MG PO Daily July 14, 2025 12:00am Complies with drug therapycephalexin 500 mg oral capsule (3 sources)Cephalosporin AntibacterialStart: 05-15-2024 End: 24-04-8990rmzu 1 capsule by mouth twice dailyCephalexin 500 mg capsule Discontinued 500 MG PO Twice daily 14 7 0 May 14, 2024 11:00pm September 29, 2025 8:57amnabumetone 500 mg oral tablet (6 sources)Nonsteroidal Anti-inflammatory DrugStart: 72-69-3112Eqvigzkdqc Active MG PO May 15, 2024 12:00amStart: 04-16-2024 End: 15-12-3223Wwjejeorpz 500 mg tablet Discontinued MG PO May 14, 2024 11:00pm September 29, 2025 8:57am Problems Active Problems Problem ClassificationProblemDateDocumented DateEpisodic/ChronicHeadache; including migraine (10 sources)Migraine without aura, not refractory ; Translations: [Migraine without aura, not intractable, without status migrainosus]Onset: 01-26-2025 20-67-9176JejgqzyAgmlfmqd; including migraine (7 sources)Sinus headache; Translations: [Sinus headache]Onset: 01-26-2025 81-73-6128NhxbeqxwEnrfmct and fatigue (2 sources)Fatigue; Translations: [Chronic fatigue, unspecified]09-29-2025 ChronicOther female genital disorders (5 sources)Abnormal uterine bleeding; Translations: [Other specified abnormal uterine and vaginal bleeding]Onset: 830492-79-6787BxvvuzwWvljz gastrointestinal disorders (1 source)Other constipation; Translations: [OTHER CONSTIPATION]Onset: 43-61-4746JbwpijatOdsqi nervous system disorders (13 sources)Disorder of autonomic nervous system; Translations: [Disorder of the autonomic nervous system, unspecified]Onset: 372151-36-3249TjphfqcIubfy upper respiratory infections (10 sources)Chronic sinusitis, unspecified; Translations: [Chronic rhinitis] Onset: 071069-11-3025JjpdsvsNoqnzuqid by nonmedicinal substances (13 sources)Bee sting; Translations: [Toxic effect of venom of bees, accidental (unintentional), initial encounter]Onset: 323565-09-1226DawvnyaaPbqavkrt codes; unclassified (2 sources)Early satiety; Translations: [Early satiety]04-07-8551LfkpctfvRoymb infection (5 sources)Therese-Sarmiento virus disease; Translations: [Infectious mononucleosis, unspecified without complication]49-24-8258Geihvrds Past or Other Problems Problem ClassificationProblemDateDocumented DateEpisodic/ChronicAnxiety disorders (9 sources)Generalized anxiety disorder; Translations: [Generalized anxiety disorder]Onset: 04-15-2024 Resolved: 842658-83-4790NtefjlgUogygmy and fatigue (10 sources)Fatigue; Translations: [Other fatigue]Onset: EpisodicOther gastrointestinal disorders (9 sources)Chronic constipation; Translations: [Other constipation]Onset: 236079-92-5568QetjpyafWixsn lower respiratory disease (9 sources)Rib pain; Translations: [Pleurodynia]Onset: 08-26-2024 Resolved: 023346-85-9580MfxwyalvAxoyl non-traumatic joint disorders (9 sources)Pain in left knee; Translations: [Pain in joint, lower leg]Onset: 04-16-2024 Resolved: 896402-45-4270ZzdfjrvfAvtly upper respiratory disease (9 sources)Bleeding from nose; Translations: [Epistaxis]Onset: 04-15-2024 Resolved: 355635-15-6275MyourszrYoxnt upper respiratory infections (9 sources)Acute sinusitis; Translations: [Acute sinusitis, unspecified]Onset: 04-15-2024 Resolved: 158477-68-4152Usmrhlgr Results Test NameValueInterpretationReference RangeFacilityALL CBC WITH AUTO DIFFon 13-07-3422PPWWQZLVI ABSOLUTE QXAB4UYHS HealthcareBasophils/100 WBC (Bld)0.6 %0.2 - 2.0 %NOMS HealthcareEosinophils/100 WBC (Bld)1.4 %0.9 - 7.0 %[facility] Erythrocyte distribution width (RBC) [Ratio]13.6 %11.0 - 15.0 %[facility] Hematocrit (Bld) [Volume fraction]37.3 %36.0 - 48.0 %[facility] HospitalHemoglobin (Bld) [Mass/Vol]12.6 g/dL12.0 - 16.0 g/dLSaint John's Aurora Community HospitalIMMATURE GRANULOCYTES ABS AUTO0.01NOME HealthcareImmature granulocytes/100 WBC (Bld)0.1 %0.0 - 0.5 % [facility] HealthcareInterpretation and review of laboratory resultsAbnormalNOME HealthcareLYMPHOCYTES ABSOLUTE NEDC3VVGV HealthcareLymphocytes/100 WBC (Bld)28.4 %20.5 - 60.0 %[facility] HospitalH (RBC) [Entitic mass]30.4 pg26.7 - 34.0 pgCedar County Memorial HospitalHC (RBC) [Mass/Vol]33.8 g/dL29.9 - 35.2 g/dLCedar County Memorial HospitalV (RBC) [Entitic vol]90.1 fL81.0 - 99.0 fLSaint John's Aurora Community HospitalMONOCYTES ABSOLUTE AUTO0.7NOMS HealthcareMonocytes/100 WBC (Bld)10.6 %1.7 - 12.0 %NOM HealthcareNEUTROPHILS ABSOLUTE AUTO4.1NOMS HealthcareNeutrophils/100 WBC (Bld)58.9 %43.0 - 75.0 %[facility] HealthcarePlatelet mean volume (Bld) [Entitic vol]9 fLLow9.5 - 13.5 fLNOSaint Joseph Hospital of KirkwoodTBH EO #0.1NOMS HealthcareTB RNQ044SWMN [facility] RBC4.14LowNOMS [facility] HospitalTB WBC6.9NOME HealthcareCLINISYNCNMERCY REHAB[facility] [place] [facility] [place] HealthcareMONO SCREEN*on 72-61-6345BUD MONONegativeNEGATIVENOME HealthcareCLINISYNCNMERCY [facility] [place] [facility] [place] HealthcareALL CBC WITH AUTO DIFFon 10-93-3287NGPKFQUKQ ABSOLUTE AUTO0.1N[facility] Healthcare Basophils/100 WBC (Bld)0.8 %0.2 - 2.0 %[facility] HealthcareEosinophils/100 WBC (Bld) 3.4 %0.9 - 7.0 %[facility]S HealthcareErythrocyte distribution width (RBC) [Ratio]12.9 %11.0 - 15.0 %[facility]S HealthcareHematocrit (Bld) [Volume fraction]37.4 %36.0 - 48.0 %NOM HealthcareHemoglobin (Bld) [Mass/Vol]12.4 g/dL12.0 - 16.0 g/dLSaint John's Aurora Community HospitalIMMATURE GRANULOCYTES ABS AUTO0.01NOSaint Joseph Hospital of KirkwoodImmature granulocytes/100 WBC (Bld)0.2 %0.0 - 0.5 %NOM HealthcareInterpretation and review of laboratory resultsAbnormalNOME HealthcareLYMPHOCYTES ABSOLUTE AUTO1.6 NOMFulton State HospitalLymphocytes/100 WBC (Bld)25.7 %20.5 - 60.0 %[facility] HospitalH (RBC) [Entitic mass]30 pg26.7 - 34.0 pgNOBarton County Memorial HospitalHC (RBC) [Mass/Vol]33.2 g/dL29.9 - 35.2 g/dLCedar County Memorial HospitalV (RBC) [Entitic vol]90.6 fL81.0 - 99.0 fL N[facility] HealthcareMONOCYTES ABSOLUTE AUTO0.7NOME HealthcareMonocytes/100 WBC (Bld) 10.2 %1.7 - 12.0 %[facility]S HealthcareNEUTROPHILS ABSOLUTE AUTO3.8[facility] Healthcare Neutrophils/100 WBC (Bld)59.7 %43.0 - 75.0 %NOMS HealthcarePlatelet mean volume (Bld) [Entitic vol]8.6 fLLow9.5 - 13.5 fLNOMS HealthcareTB EO #0.2NOMS HealthcareTB KNK139MBDP HealthcareTB RBC4.13LowNOMS [facility] HospitalTB WBC6.4NOFroedtert Kenosha Medical CenterMETRO IRON AND TIBCon 62-36-2679IFN IRON96 ug/dL50.0 - 170.0 ug/dLSaint John's Aurora Community HospitalTB PERCENT IRON SSXGAMRPXO00.9 %NOMS HealthcareTB TOTAL IRON BINDING XBSQASMC681 ug/dL250.0 - 450.0 ug/dLNOWhite Hospital HealthcareXR Ribs - bilateral GE 3 Views and Chest PAon 10-23-[place], [place] [address] XRay Report Signed Patient: CHRIS LI MR#: [id number] : 2005 Acct:[id number] Age/Sex: 19 / F ADM Date: 08/28/24 Loc: RAD Attending Dr: Kevin Pearl M.D. Ordering Physician: Kevin Pearl M.D. Date of Service: 08/28/24 Procedure(s): XR ribs BI min 4V w CXR1V Accession Number(s): [id number] cc: Kevin Pearl M.D. [address] [place] [address] Patient Name: CHRIS LI MRN: [id number] date: 2005 Sex: F Assigned Patient Location: [facility] Current Patient Location: Accession/Order Number: [id number] Exam Date: 08/28/2024 13:42 Report Date: 08/30/2024 08:13 At the request of: KEVIN PEARL Procedure: XR ribs BI min 4V w CXR1V EXAMINATION: XR ribs BI min 4V w CXR1V HISTORY: Rib Pain R07.81 ; chronic bilateral rib pain which has increased in severity COMPARISON: No relevant comparison available. FINDINGS: LUNGS: No significant pulmonary parenchymal abnormalities. PLEURA: No pneumothorax, effusion, or pleural thickening. MEDIASTINUM: No visible mass or adenopathy. CARDIAC: No cardiomegaly or cardiac silhouette abnormality. RIBS: Normal. No significant arthropathy or acute abnormality. OTHER: Negative. XR/XR ribs BI min 4V w CXR1V IMPRESSION: 1. No appreciable rib abnormality. 2. Normal appearance of the chest. Electronically authenticated by: GILBERTO KUNZ Date: 08/30/2024 08:13 Dictated By: Gilberto Kunz M.D. Signed By: 08/30/24815 DD/ 2 TD/TT: Loan Service Officer:TBHRadiology, Radiologist, - 08/31/2024 [place] [address] XRay Report Signed Patient: CHRIS LI MR#: [id number] : 2005 Acct:[id number] Age/Sex: 19 / F ADM Date: 08/28/24 Loc: [facility] Attending Dr: Kevin Pearl M.D. Ordering Physician: Kevin Pearl M.D. Date of Service: 08/28/24 Procedure(s): XR ribs BI min 4V w CXR1V Accession Number(s): [id number] cc: Kevin Pearl M.D. [facility] [place] [address] Patient Name: CHRIS LI MRN: [id number] date: 2005 Sex: F Assigned Patient Location: [facility] Current Patient Location: Accession/Order Number: [id number] Exam Date: 08/28/2024 13:42 Report Date: 08/30/2024 08:13 At the request of: KEVIN EPARL Procedure: XR ribs BI min 4V w CXR1V EXAMINATION: XR ribs BI min 4V w CXR1V HISTORY: Rib Pain R07.81 ; chronic bilateral rib pain which has increased in severity COMPARISON: No relevant comparison available. FINDINGS: LUNGS: No significant pulmonary parenchymal abnormalities. PLEURA: No pneumothorax, effusion, or pleural thickening. MEDIASTINUM: No visible mass or adenopathy. CARDIAC: No cardiomegaly or cardiac silhouette abnormality. RIBS: Normal. No significant arthropathy or acute abnormality. OTHER: Negative. XR/XR ribs BI min 4V w CXR1V IMPRESSION: 1. No appreciable rib abnormality. 2. Normal appearance of the chest. Electronically authenticated by: GILBERTO KUNZ Date: 08/30/2024 08:13 Dictated By: Gilberto Kunz M.D. Signed By: 08/30/24815 DD/ 2 TD/TT: Loan Service Officer: [facility] HospitalRadiology Study observation (narrative)[facility] [employer] SolutionsXR Ribs - bilateral GE 3 Views and Chest PAOrdered By: Radiologist Radiology on 08-30-2024 [facility] [employer] Work Phone: cbc AUTO DIFFon 49-51-4472BOYQ #0.1 103/ulNormal 0.0-0.1The [facility] HospitalComment on above:Performed By: #### CBC #### [facility] [address] [place] [address] Dr. Jay StewartBasophils/100 WBC (Bld)0.6 %Normal0.2-2.0The [facility] Comment on above:Performed By: #### CBC #### [facility] [address] [place] [address] Dr. Jay Mac #0.1 103/ulNormal0.0-0.7The [facility] HospitalComment on above: Performed By: #### CBC #### [facility] [address] [place] [address] Dr. Jay Ambroseosinophils/100 WBC (Bld)0.6 %Critically low0.9-7.0The [facility] HospitalComment on above:Performed By: #### CBC #### [facility] [address] [address] [address] Jay Ambroserythrocyte distribution width (RBC) [Ratio]13.0 %Ecyukf43.0-15.0 The [facility] HospitalComment on above:Performed By: #### CBC #### [facility] [address] [place] [address] Dr. Jay StewartHematocrit (Bld) [Volume fraction]41.8 %Rzwmwm22.0-48.0The [facility] HospitalComment on above:Performed By: #### CBC #### [facility] [address] [place] [address] Dr. Jay StewartHemoglobin (Bld) [Mass/Vol]13.9 g/mRLnjhkd34.0-16.0The [facility] HospitalComment on above:Performed By: #### CBC #### [facility] [address] [place] [address] Dr. Jay Dueñas #0.03 10e3/ulNormal0.00-0.03The [facility] HospitalComment on above:Performed By: #### CBC #### [facility] [address] [place] [address] Dr. Jay Dueñas %0.3 %Normal0.0-0.5The [facility] HospitalComment on above: Performed By: #### CBC #### [facility] [address] [place] [address] Dr. Jay Lawton #1.9 103/ulNormal1.2-3.8The [facility] HospitalComment on above:Performed By: #### CBC #### [facility] [address] [place] [address] Dr. Jay Warnerhocytes/100 WBC (Bld)18.0 %Critically low20.5-60.0The [facility] HospitalComment on above:Performed By: #### CBC #### [facility] [address] [place] [address] Dr. Jay WolfUAL DIFF REQNONormalThe [facility] HospitalComment on above: Performed By: #### CBC #### [facility] [address] [place] [address] Dr. Jay Avery (RBC) [Entitic mass]30.4 tqFnuoxc89.7-34.0The [facility] HospitalComment on above:Performed By: #### CBC #### [facility] [address] [place] [address] Dr. Jay QiuHC (RBC) [Mass/Vol]33.3 g/fTOqaeos61.9-35.2The [facility] HospitalComment on above:Performed By: #### CBC #### [facility] [address] [place] [address] Dr. Jay Alvarez (RBC) [Entitic vol]91.5 nDXtzacw60.1-95.6The [facility] HospitalComment on above:Performed By: #### CBC #### [facility] [address] [place] [address] Dr. Jay Blas #0.7 103/ulNormal0.3-0.8The [facility] HospitalComment on above:Performed By: #### CBC #### [facility] [address] [place] [address] Dr. Jay Fischerocytes/100 WBC (Bld)6.3 %Normal1.7-12.0The [facility] Comment on above:Performed By: #### CBC #### [facility] [address] [place] [address] Dr. Jay Peralta #7.7 103/ulCritically high1.4-6.5The [facility] Comment on above:Performed By: #### CBC #### [facility] [address] [place] [address] Dr. Jay Chavisutrophils/100 WBC (Bld)74.2 %Dqpwdn49.0-75.0The [facility] HospitalComment on above:Performed By: #### CBC #### [facility] [address] [place] [address] Dr. Jay Hill mean volume (Bld) [Entitic vol]8.9 fLCritically low 9.5-13.5The [facility] HospitalComment on above:Performed By: #### CBC #### [facility] [address] [place] [address] Dr. Jay AdanT277 103/kmFnrams626-655Czn [facility] HospitalComment on above: Performed By: #### CBC #### [facility] [address] [place] [address] Dr. Jay RojoC4.57 106/ulNormal3.40-5.30The [facility] Hospitalment on above:Performed By: #### CBC #### [facility] [address] [address] [address] Jay StewartWBC10.4 103/ulNormal4.0-11.0The [facility] HospitalComment on above:Performed By: #### CBC #### [facility] [address] [address] [address] Jay Morales PROFILEon 17-93-4807Vcpzmtl [Mass/Vol]5.0 g/dLNormal3.4-5.0 The [facility] HospitalComment on above:Performed By: #### TSH, LIVER, BMP #### [facility] [address] [place] [address] Dr. Jay StewartAlbumin/Globulin [Mass ratio]1.3 {ratio}NormalThe [facility] HospitalComment on above:Performed By: #### TSH, LIVER, BMP #### [facility] [address] [address] [address] Jay Frank [Catalytic activity/Vol]84 U/ZKfmovb23-733Jzj [facility] HospitalComment on above:Performed By: #### TSH, LIVER, BMP #### [facility] [address] [place] [address] Dr. Jay Morales [Catalytic activity/Vol]14 U/ULekeql34-90Ekq [facility] on above:Performed By: #### TSH, LIVER, BMP #### [facility] [address] [address] [address] Jay Gonzales [Catalytic activity/Vol]12 U/LCritically otx96-86Vay [facility] on above:Performed By: #### TSH, LIVER, BMP #### [facility] [address] [place] [address] Dr. Jay Peña, CONJUGATED0.3 mg/dLNormal0.0-0.3The [facility] Comment on above:Performed By: #### TSH, LIVER, BMP #### [facility] [address] [address] [address] Jay StewartBilirubin [Mass/Vol]1.7 mg/dLCritically high0.2-1.3The [facility] HospitalComment on above:Performed By: #### TSH, LIVER, BMP #### [facility] [address] [place] [address] Dr. Jay StewartGlobulin (S) [Mass/Vol]3.9 g/dLNormalThe [facility] HospitalComment on above:Performed By: #### TSH, LIVER, BMP #### [facility] [address] [place] [address] Dr. aJy StewartProtein [Mass/Vol]8.9 g/dLCritically high6.1-8.2The [facility] HospitalComment on above:Performed By: #### TSH, LIVER, BMP #### [facility] [address] [place] [address] Dr. Jay StewartPROF CHEM 8 (BAS METB)on 80-15-1541Dpwhz gap [Moles/Vol]14.9 mmol/LNormalUc West Chester HospitalComment on above:Performed By: #### TSH, LIVER, BMP #### [facility] [address] [place] [address] Dr. Jay StewartCalcium [Mass/Vol]9.4 mg/dLNormal8.5-10.1[facility] Comment on above:Performed By: #### TSH, LIVER, BMP #### [facility] [address] [place] [address] Dr. Jay StewartChloride [Moles/Vol]102 mmol/WMlrzou58-684Ptu [facility] Comment on above:Performed By: #### TSH, LIVER, BMP #### [facility] [address] [place] [address] Dr. Jay StewartCO2 [Moles/Vol]25.5 mmol/BEnzeqd87.0-30.0The [facility] Comment on above:Performed By: #### TSH, LIVER, BMP #### [facility] [address] [place] [address] Dr. Jay StewartCreatinine [Mass/Vol]0.78 mg/dLNormal0.52-1.04The [facility] HospitalComment on above:Performed By: #### TSH, LIVER, BMP #### [facility] [address] [address] [address] Jay StewartGlucose [Mass/Vol]91 mg/tPMpzfku84-531Lcl [facility] Comment on above:Performed By: #### TSH, LIVER, BMP #### [facility] [address] [place] [address] Dr. Jay StewartPotassium [Moles/Vol]4.4 mmol/LNormal3.4-5.0The [facility] Comment on above:Performed By: #### TSH, LIVER, BMP #### [facility] [address] [address] [address] Jay StewartSodium [Moles/Vol]138 mmol/NUghvba641-559Grp [facility] Comment on above:Performed By: #### TSH, LIVER, BMP #### [facility] [address] [place] [address] Dr. Jay StewartUrea nitrogen [Mass/Vol]14.0 mg/dLNormal6.4-19.3The [facility] HospitalComment on above:Performed By: #### TSH, LIVER, BMP #### [facility] [address] [place] [address] Dr. Jay Morin nitrogen/Creatinine [Mass ratio]17.9 mg/mgNoSelect Medical Specialty Hospital - ColumbusComment on above:Performed By: #### TSH, LIVER, BMP #### [facility] [address] [place] [address] Dr. Jay Michele 13-19-9136VEA9.496 uIU/mLNormal0.430-3.750The [facility] HospitalComment on above:Performed By: #### TSH, LIVER, BMP #### [facility] [address] [place] [address] Dr. Jay Butts [facility] BELOWSelect Medical Specialty Hospital - Cleveland-FairhillComment on above: Result Comment: <0.34 UIU/ml HYPERTHYROID 0.34-5.60 UIU/ml EUTHYROID >5.60 UIU/ml HYPOTHYROIDPerformed By: #### TSH, LIVER, BMP #### [facility] [address] [address] [address] Jay StewartXR ABD FLAT_UPon 35-56-6506WU ABD FLAT_UPEXAMINATION: XR ABD FLAT_UP HISTORY: Constipation , lower [...] concern consider follow-up radiograph. Electronically authenticated by: GILBERTO KUNZ Date: 2022-03-01 16:57[facility] Vital Signs Date TimeVital SignValuePerforming PumgsttmvHqeacggu94-89-5339 08:56-0500Body njxiob360.46 cmKevin Pearl MD Work Phone: [phone] [place], [place] 3884911-05-2025 08:56-0500 Body btsdmpxajhl58.3 [degF]Kevin Pearl MD Work Phone: [phone]11-05-2025 08:56-0500 Diastolic blood vnfsbjau30 mm[Hg]Kevin Pearl MD Work Phone: [facility]11-05-2025 08:56-0500 Heart rate89 /minKevin Pearl MD Work Phone: [phone] [place], [place] 3884911-05-2025 08:56-0500 Respiratory rate20 /minKevin Pearl MD Work Phone: [phone]-[facility] - [place]11-05-2025 08:56-0500 SaO2% (BldA) [Mass fraction]97 %Kevin Pearl MD Work Phone: [facility] [place]11-05-2025 08:56-0500 Systolic blood ytdeqosi652 mm[Hg]Kevin Pearl MD Work Phone: 1([phone])[address]08-20-2025 13:53-0400 Body uesyno13.9 kgKevin Pearl MD Work Phone: 1(843)[address]08-20-2025 13:53-0400 Diastolic blood mm[Hg]Kevin Pearl MD Work Phone: [phone])[address]08-20-2025 13:53-0400 Heart rate75 /minKevin Pearl MD Work Phone: [phone])[address]08-20-2025 13:53-0400 SaO2% (BldA) [Mass fraction]98 %Kevin Pearl MD Work Phone: [phone])[address]08-20-2025 13:53-0400 Systolic blood badrzwyp636 mm[Hg]Kevin Pearl MD Work Phone: [phone])[address]04-07-2025 11:37-0400 Body ovcxdz706.9 cmKevin Pearl MD Work Phone: [facility]Ayhedcaatc98-23-1605 11:37-0400Body mass index (BMI) [Ratio]21.01 kg/m2Kevin Pearl MD Work Phone: [facility] HospitalSltfdnvufl09-74-2953 11:37-0400Body temperature 97.5 [degF]Kevin Pearl MD Work Phone: [facility] HospitalWqkfusznfr32-00-0834 11:37-0400Body bymdmv83.17 kgKevin Pearl MD Work Phone: [facility] HospitalKuqvwhkhwf50-62-1463 11:37-0400Diastolic blood fxjajvhw09 mm[Hg]Kevin Pearl MD Work Phone: [facility] HospitalTshkgdjifd95-51-3352 11:37-0400Heart rate95 /min Kevin Pearl MD Work Phone: [facility] HospitalBhylnzejfy27-79-7452 11:37-0400Respiratory rate20 /minKevin Pearl MD Work Phone: [facility] HospitalGsrenwypdz14-50-2551 11:37-6207DmW7% (BldA) [Mass fraction]98 %Kevin Pearl MD Work Phone: [facility] HospitalHwqxomcroc02-03-4481 11:37-0400Systolic blood ednepyrx987 mm[Hg]Kevin Pearl MD Work Phone: [facility] HospitalKchdndajtl90-08-0774 09:54-0500Body ojeyzd480.9 cmKevin Pearl MD Work Phone: [facility] HospitalEsrtifeekg77-73-6906 09:54-0500Body mass index (BMI) [Ratio]20.8 kg/m2Kevin Pearl MD Work Phone: [facility] HospitalVnamlvzzjq06-01-3680 09:54-0500Body temperature 97.11 [degF]Kevin Pearl MD Work Phone: [facility] HospitalSvkbiemibt99-78-0511 09:54-0500Body wnrazt77.72 kgKevin Pearl MD Work Phone: [facility] HospitalQojmtbydtz66-55-7083 09:54-0500Diastolic blood mm[Hg]Kevin Pearl MD Work Phone: [facility] HospitalUvloumqavx86-94-4669 09:54-0500Heart rate90 /min Kevin Pearl MD Work Phone: [facility] HospitalRgkxficxro86-70-2358 09:54-0500Respiratory rate20 /minKevin Pearl MD Work Phone: [facility] HospitalRkplakdpcj37-58-4450 09:54-9869ZjU6% (BldA) [Mass fraction]97 %Kevin Pearl MD Work Phone: [facility] HospitalJndzlwaymq46-03-5482 09:54-0500Systolic blood qespjdwu05 mm[Hg]Kevin Pearl MD Work Phone: [facility] HospitalZacrrowgto38-79-7463 16:42-0400Body beyfeo745.32 cm[facility] [place]24 16:42-0400Body mass index (BMI) [Percentile] Per age and sex46.3 %[facility] [place]06-21-2024 16:42-0400Body mass index (BMI) [Ratio]21.3 kg/k3OfasjmalzSelect Medical Specialty Hospital - [place]06-21-2024 16:42-0400Body gvcujbyyoma64.5 [degF][facility] [place]06-21-2024 16:42-0400Body gzklab29.32 kg[facility] [place] 05-15-2024 16:42-0400Diastolic blood rnwvqfiz28 mm[Hg][facility] [place]06-21-2024 16:42-0400Heart rate90 /[facility] 05-15-2024 16:42-0400Respiratory rate18 /[facility] 05-15-2024 16:42-2947YdQ9% (BldA) [Mass fraction]99 %[facility] [place]06-21-2024 16:42-0400Systolic blood eptwraxs078 mm[Hg][facility] [place] Encounters Encounter DateEncounter TypeCare ProviderFacilityStart: 09-29-2025 End: 73-31-9254tnkfxmjbooHhfg Naderer MD Work Phone: -[facility] ClydeStart: 09-29-2025 End: 40-51-6709Hlrchdl encounter procedureKevin Pearl MD-[facility] [place] Work Phone: Start: 07-14-2025 End: 89-36-7480zrypgptjekJpsy Naderer MD Work Phone: [facility] Work Phone: Start: 07-14-2025 End: 16-22-0299Vhejabx encounter procedureChristopher Jabrai High DO-[facility] [place] Work Phone: Start: 03-01-2025 End: 35-35-0268Rofpei Jaguar Pearl MD Work Phone: [facility]OL[facility] CWM FMStart: 03-01-2025 End: 79-61-5419Vssqfo Jaguar Pearl MD Work Phone: NOIX CWM FMStart: 03-01-2025 End: 56-00-7719Wpewvs outpatient visit 25 minutesKevin Pearl MD Work Phone: [facility] FMComment on above:Migraine without aura and without status migrainosus, not intractable (CMS/HCC) (Primary Dx); Autonomic dysfunction; Dysfunctional uterine bleedingStart: 03-01-2025 End: 73-02-1653qxnzwypylzNDPN NADERERNot AvailableStart: 02-11-2025 End: 15-11-5898Ewbqxuhpn Result EncounterKevin Pearl MD Work Phone: NOYE External Department UnsolicitedStart: 02-11-2025 End: 33-35-1166Yfqogwbdx Result EncounterKevin Pearl MD Work Phone: NOWK External Department UnsolicitedStart: 01-27-2025 End: 02-73-0986Xjggzetig Result EncounterKevin Pearl MD Work Phone: NOBM External Department UnsolicitedStart: 01-27-2025 End: 47-92-5196Yxjvwortc Result Nikos Pearl MD Work Phone: NOJG External Department UnsolicitedStart: 01-26-2025 End: 61-43-5491Ucjhtt Jaguar Pearl MD Work Phone: [facility] FMStart: 01-26-2025 End: 07-88-0122Vimaaj Jaguar Pearl MD Work Phone: [facility] FMStart: 01-26-2025 End: 53-18-1433sjxgtmfqarHZZN NADERERNot AvailableStart: 01-26-2025 End: 29-79-6657Zignft outpatient visit 25 minutesKevin Pearl MD Work Phone: noms CW FMComment on above:Autonomic dysfunction (Primary Dx); Sinus headache; Chronic rhinosinusitis; Fatigue, unspecified type; Annual physical examStart: 01-26-2025 End: 97-37-4919Vdsuypp encounter procedureKevin Pearl MD Work Phone: noms HealthcareStart: 08-30-2024 End: 89-71-6670Irylggcwj Result EncounterKevin Pearl MD Work Phone: noms External Department UnsolicitedStart: 08-30-2024 End: 04-29-9211Qijdgtuwy Result EncounterKevin Pearl MD Work Phone: noms External Department UnsolicitedStart: 08-26-2024 End: 50-59-8318msomwumuonTSOF NADERERNot AvailableStart: 05-26-2024 End: 10-36-4435jsuiavzbznSAAO NADERERNot AvailableStart: 05-15-2024 End: 14-13-3722altytedjarDrxdibrxzTr[facility] Work Phone: Start: 05-15-2024 End: 77-46-1209Rbqqpso [facility] [place] Work Phone: Start: 04-16-2024 End: 30-35-8392wzkgreybxvGWYG NADERERNot AvailableStart: 63-93-2684Wtaifuuoz for routine child health examination without abnormal findingsDR KEVIN Vicente [facility] HospitalStart: 03-01-2022 End: 93-77-9023mrmldagijvAZ KEVIN [place] NADERERFacility:Z9Ypfcs: 03-01-2022 End: 16-32-7389Vhjummmyn for routine child health examination without abnormal findingsDR KEVIN [place] NADERERFacility:H1 Procedures DateProcedureProcedure DetailPerforming ClinicianStart: 83-97-7349ZYP CBC WITH AUTO DIFFKevin Pearl MD Work Phone: Start: 51-86-8630CJGY SCREEN*Kevin Pearl MD Work Phone: Start: 96-54-3425JNM CBC WITH AUTO DIFFMarc Dae GONGORA Work Phone: Start: 79-04-6740AHQHX IRON AND TIBCMarc Dae GONGORA Work Phone: Start: 75-95-1106IV Ribs - bilateral GE 3 Views and Chest PAMarc Dae GONGORA Work Phone: Plan of Treatment DateCare ActivityDetailAuthorStart: 21-37-2116HVJQJ-19 Vaccine ( season)COVID-19 Vaccine ( season)[facility] HealthcareStart: 07-26-2025 Influenza vaccinationNOMS HealthcareStart: 05-31-2025 End: 77-22-5651Ejgiepx encounter /07/2025 2:00 PM EDT Office Visit [facility] [address] [place] [address] Kevin Pearl MD [address] [place] [id number] [facility] CW FMStart: 03-01-2025 End: 76-79-6144Bmljqyd encounter procedureNOMS CWM FMComment on above:Arrived Start: 01-26-2025 End: 02-79-3951Axedl metabolic 1998 panel - Serum or PlasmaBasic metabolic panel Lab Routine Annual physical exam Expected: 01/26/2025 (Approximate), Expires: 01/26/2026[facility] Work Phone: Comment on above:Expected: 01/26/2025 (Approximate), Expires: 01/26/2026Start: 01-26-2025 End: 54-99-7969XUW W Auto Differential panel - BloodCBC and differential Lab Routine Annual physical exam Expected: 01/26/2025 (Approximate), Expires: 0 01/26/2026N[facility]S HealthcareComment on above:Expected: 01/26/2025 (Approximate), Expires: 01/26/2026Start: 01-26-2025 End: 92-64-9160Kwjsqaear (Vitamin B12) [Mass/volume] in Serum or PlasmaVitamin B12 Lab Routine Fatigue, unspecified type Expected: 01/26/2025 (Approximate), Expires: 01/26/2026N[facility] HealthcareComment on above:Expected: 01/26/2025 (Approximate), Expires: 01/26/2026Start: 01-26-2025 End: 13-92-1735Szkwmdjc [Mass/volume] in Serum or PlasmaFerritin Lab Routine Fatigue, unspecified type Expected: 01/26/2025 (Approximate), Expires: 01/27/20NOME HealthcareComment on above:Expected: 01/26/2025 (Approximate), Expires: 01/26/2026Start: 01-26-2025 End: 73-07-2353Lxntcde function 2000 panel - Serum or PlasmaHepatic function panel Lab Routine Annual physical exam Expected: 01/26/2025 (Approximate), Expires: 01/26/2026N[facility] HealthcareComment on above:Expected: 01/26/2025 (Approximate), Expires: 01/26/2026Start: 01-26-2025 End: 81-85-2755Radk and Iron binding capacity panel - Serum or PlasmaIron and TIBC Lab Routine Fatigue, unspecified type Expected: 01/26/2025 (Approximate), Expires: 01/26/2026N[facility] HealthcareComment on above:Expected: 01/26/2025 (Approximate), Expires: 01/26/2026Start: 01-26-2025 End: 77-16-0936Pvpcepoytrw [Units/volume] in Serum or PlasmaTSH Lab Routine Autonomic dysfunction Fatigue, unspecified type Expected: 01/26/2025 (Approximate),Expires: 01/26/2026N[facility]S HealthcareComment on above:Expected: 01/26/2025 (Approximate), Expires: 01/26/2026Start: 01-26-2025 End: 44-16-9653Znqndwzzi (T4) free [Mass/volume] in Serum or PlasmaT4, free Lab Routine Fatigue, unspecified type Expected: 01/26/2025 (Approximate), Expires: 01/26/2026N[facility] HealthcareComment on above:Expected: 01/26/2025 (Approximate), Expires: 01/26/2026Start: 47-19-7914Gmdbcsttz vaccinationInfluenza Vaccine (#1) [facility] HealthcareStart: 09-01-3801Cnnpklrsj B Vaccines (1 of 3 - 19+ 3-dose series)Hepatitis B Vaccines (1 of 3 - 19+ 3-dose series)[facility] HealthcareStart: 21-42-7038Pdpxiurfirrbb B Vaccine (1 of 2 - Standard)Meningococcal B Vaccine (1 of 2 - Standard)[facility] HealthcareStart: 06-43-6235WVF Vaccines (1 - 3-dose series) HPV Vaccines (1 - 3-dose series)[facility] HealthcareStart: 32-68-0822Afyblat of varicella vaccinationVaricella Vaccines (1 of 2 - 13+ 2-dose series)[facility] HealthcareStart: 04-57-0456QYyT/Tdap/Td Vaccines (1 - Tdap)DTaP/Tdap/Td Vaccines (1 - Tdap)[facility] HealthcareStart: 37-04-6932BUF Vaccines (1 of 1 - Standard series)MMR Vaccines (1 of 1 - Standard series)[facility] HealthcareFluoroscopy of upper gastrointestinal tractOrlando [facility] Medical Center Payers DatePayer CategoryPayerPolicy [id number] [id number] Health InsuranceMEDICAL MUTUAL [id number] 2..[id number] 2..[id number] 2..[id number] 2..[id number] ..[id number] [id number] [id number] Social History DateTypeDetailFacilityTobacco smoking status NHISUnknown if ever smokedLutheran Hospital Work Phone: Start: 31-60-7869Tux Assigned At BirthCommunity Memorial Hospitaltart: 04-16-2024 End: 25-97-2071Ilkxscr smoking status NHISNever smoked tobaccoNOMS Healthcare Start: 19-08-2534Rhrbkhe use and exposureSmokeless tobacco non-userNOMS HealthcareStart: 08-25-2024 End: 19-50-2605Stvzzoh of Social functionNOMS HealthcareStart: 08-25-2024 End: 36-53-9407Z0286 Health LiteracyNOMS HealthcareStart: 87-75-4481Kvj often do you need to have someone help you when you read instructions, pamphlets, or other written material from your doctor or pharmacy [SILS]NeverNOMS HealthcareDo you belong to any clubs or organizations such as episcopal groups, unions, fra[employer] or athletic groups, or school groups?YesNOMS HealthcareAre you now , , , , never or living with a partner? Never marriedNOMS HealthcareHow often to you have a drink containing alcohol? NeverNOMS HealthcareDo you feel stress - tense, restless, nervous, or anxious, or unable to sleep at night because yourmind is troubled all the time - these days [OSQ]Not at allNOMS HealthcareAt any time in the past 12 months, were you homeless or living in prison [including now]?NoNOMS HealthcareStart: 04-02-2024 Gender identityIdentifies as female gender (finding)[facility] HealthcareStart: 53-55-3780Wmunsr orientationHeterosexual (finding)[facility] HealthcareTobacco smoking status NHISUnknown if ever smokedLutheran Hospital Work Phone: SexFemale (finding)[facility] [place] Evaluation note 07-14-2025 Note Date & QkeiPfpcEcpextqi50-90-4961 Evaluation note* Diagnosis Onset Date Resolution Status Admit Date Chronic migraine without aura or status migrainosus acuteAugust 2024 1:45pmEpstein Sarmiento virus infectionacuteAugust 2024 1:45pmChronic fatigueacuteNovember 2024 8:38amChronic migraine without aura or status migrainosusacuteNovember 2024 8:38amEarly satietyacuteNovember 2024 8:38amEpstein Sarmiento virus infectionacuteNov2024 8:38am [facility] Work Phone: History of Present illness Narrative 03-01-2025 Note Date & KuokBcdjAtuuhbrs16-46-8623 History of Present illness Narrative* Kevin Pearl MD - 03/01/2025 12:24 PM EDTAssociated Problem(s): Migraine without aura and without status migrainosus, not intractable (CMS/HCC) PHAM worse and not responding to fioricet. Try maxalt. * Kevin Pearl MD - 03/01/2025 12:22 PM EDTAssociated Problem(s): Dysfunctional uterine bleeding Irregular periods and start OCP. * Kevin Pearl MD - 03/01/2025 12:22 PM EDTAssociated Problem(s): Autonomic dysfunction Symptoms slightly better and continue florinef. Continue with increased water and salt intake. * Kevin Pearl MD - 03/01/2025 11:15 AM EDT Subjective Patient ID: Chris Li is a 20 y.o. female who presents for Follow-up (1 m) and Headache (Constantheadache). Follow up fatigue, NCS, and PHAM. Patient unchanged. Continues to have severe fatigue and tired all the time. Not able to stay active due to fatigue and not able to exercise. Labs normal other than positive EBV antibodies. NCS improved and BP improved today. Still occasional symptoms with movement but not as intense. Trying to increase fluids. PHAM unchanged and constant. Daily PHAM. Throbbing pain in entire head associated with photophobia, phonophobia and nausea. PHAM worse in back head. Some days dull and other times severe. Not notice triggers. Tried fioricet and not help. Menses irregular. Some times will be 1 week early and other times 1 week late. Denies heavy bleeding but irregular. Review of Systems Respiratory: Negative for cough, shortness of breath and wheezing. Cardiovascular: Negative for chest pain and palpitations. Gastrointestinal: Negative for abdominal pain, diarrhea, nausea and vomiting. Genitourinary: Negative for dysuria. Objective Physical Exam Constitutional: General: She is not in acute distress. Appearance: Normal appearance. HENT: Head: Normocephalic. Right Ear: Tympanic membrane normal. Left Ear: Tympanic membrane normal. Eyes: Extraocular Movements: Extraocular movements intact. Pupils: Pupils are equal, round, and reactive to light. Cardiovascular: Rate and Rhythm: Normal rate and regular rhythm. Heart sounds: No murmur heard. No friction rub. No gallop. Pulmonary: Effort: Pulmonary effort is normal. Breath sounds: Normal breath sounds. No wheezing, rhonchi or rales. Abdominal: General: Bowel sounds are normal. There is no distension. Palpations: Abdomen is soft. Tenderness: There is no abdominal tenderness. There is no guarding or rebound. Musculoskeletal: Cervical back: Neck supple. Right lower leg: No edema. Left lower leg: No edema. Neurological: Mental Status: She is alert. Assessment/Plan Problem List Items Addressed This Visit Autonomic dysfunction Symptoms slightly better and continue florinef. Continue with increased water and salt intake. Migraine without aura and without status migrainosus, not intractable (CMS/HCC) - Primary PHAM worse and not responding to fioricet. Try maxalt. Relevant Medications rizatriptan BOW STRING MAKER (Maxalt-BOW STRING MAKER) 5 MG disintegrating tablet Dysfunctional uterine bleeding Irregular periods and start OCP. Relevant Medications norethindrone-ethinyl estradiol-iron (Microgestin FE 1.5/30) 1.5-30 MG-MCG tablet documented in this encounterNOMS Healthcare History of Present illness Narrative 01-26-2025 Note Date & JvtfYhhrFlixqgep20-97-5226 History of Present illness Narrative* Kevin Pearl MD - 01/26/2025 10:35 AM ESTAssociated Problem(s): Chronic rhinosinusitis Evidence of congestion likely causing PHAM. Start flonase. * Kevin Pearl MD - 01/26/2025 10:35 AM ESTAssociated Problem(s): Sinus headache PHAM likely related to congestion and sinus pressure. Start fioricet PRN. * Kevin Pearl MD - 01/26/2025 10:34 AM ESTAssociated Problem(s): Fatigue Check labs. * Kevin Pearl MD - 01/26/2025 10:34 AM ESTAssociated Problem(s): Autonomic dysfunction Symptoms suggestive of NCS. Add florinef. Increased salt and water intake. * Kevin Pearl MD - 01/26/2025 9:45 AM EST Images from the original note were not included. Subjective Patient ID: Chris Li is a 19 y.o. female who presents for Headache, Follow-up (Cold all the time, shaking, ), Fatigue (No energy), and Dizziness. Multiple complaints today. C/o daily PHAM for several months. Pain in forehead and temples. Squeezingpain and pressure. Not throbbing. No association with photophobia, phonophobia, or nausea. Not worse with activity. Using OTC and not helping. PHAM can last hours to all day. Increased congestion and postnasal drip. Not on medication for symptoms. C/o lightheaded and dizzy for months. Symptoms with position changes such as sit then stand or lay down then sit up. Symptoms last for few seconds and will stand still or sit then resolve. Not notice heart racing but feels like will pass out if worsen. No motion or spinning. Feels shaky and jittery. C/o feels cold all the time. Review of Systems Respiratory: Negative for cough, shortness of breath and wheezing. Cardiovascular: Negative for chest pain and palpitations. Gastrointestinal: Negative for abdominal pain, diarrhea, nausea and vomiting. Genitourinary: Negative for dysuria. Objective Physical Exam Constitutional: General: She is not in acute distress. Appearance: Normal appearance. HENT: Head: Normocephalic. Right Ear: Tympanic membrane normal. Left Ear: Tympanic membrane normal. Eyes: Extraocular Movements: Extraocular movements intact. Pupils: Pupils are equal, round, and reactive to light. Cardiovascular: Rate and Rhythm: Normal rate and regular rhythm. Heart sounds: No murmur heard. No friction rub. No gallop. Pulmonary: Effort: Pulmonary effort is normal. Breath sounds: Normal breath sounds. No wheezing, rhonchi or rales. Abdominal: General: Bowel sounds are normal. There is no distension. Palpations: Abdomen is soft. Tenderness: There is no abdominal tenderness. There is no guarding or rebound. Musculoskeletal: Cervical back: Neck supple. Right lower leg: No edema. Left lower leg: No edema. Neurological: Mental Status: She is alert. Assessment/Plan Problem List Items Addressed This Visit Autonomic dysfunction - Primary Symptoms suggestive of NCS. Add florinef. Increased salt and water intake. Relevant Medications fludrocortisone (Florinef) 0.1 MG tablet Other Relevant Orders TSH Sinus headache PHAM likely related to congestion and sinus pressure. Start fioricet PRN. Fatigue Check labs. Relevant Orders T4, free TSH Iron and TIBC Ferritin Vitamin B12 Chronic rhinosinusitis Evidence of congestion likely causing PHAM. Start flonase. Relevant Medications kwalnqhcux-lrjgznckmbeat-tbsxmyok 50-325-40 MG tablet Other Visit Diagnoses Annual physical exam Relevant Orders Basic metabolic panel CBC and differential Hepatic function panel [facility] Evaluation note Note Date & TypeNoteFacilityEvaluation note* Diagnosis Onset Date Resolution Status Bee sting reaction acute [facility] Work Phone: Evaluation note Note Date & TypeNoteFacilityEvaluation note* Diagnosis Bee sting reaction, accidental or unintentional, subsequent encounter- Primary Acute pain of left knee Autonomic dysfunction- Primary Sinus headache Headache Chronic rhinosinusitis Unspecified sinusitis (chronic) Fatigue, unspecified type Annual physical exam Routine general medical examination at a health care facility documented in this encounter [facility] Evaluation note Note Date & TypeNoteFacilityEvaluation note* Diagnosis Bee sting reaction, accidental or unintentional, subsequent encounter- Primary Acute pain of left knee Autonomic dysfunction- Primary Sinus headache Headache Chronic rhinosinusitis Unspecified sinusitis (chronic) Fatigue, unspecified type Annual physical exam Routine general medical examination at a health care facility Migraine without aura and without status migrainosus, not intractable (CMS/HCC)- Primary Autonomic dysfunction Dysfunctional uterine bleeding Other disorder of menstruation and other abnormal bleeding from female genital tract documented in this encounter [facility] Evaluation note Note Date & TypeNoteFacilityEvaluation note* Diagnosis Onset Date Resolution Status Admit Date Chronic migraine without aura or status migrainosus acuteAugust 2024 1:45pmEpstein Sarmiento virus infectionacuteAugus2024 1:45pm [facility] Work Phone: Reason for referral (narrative) Note Date & TypeNoteFacilityReason for referral (narrative)No reason for referral information availableLutheran Hospital Work Phone: Summary Purpose Family History No Family History Records FoundNo Family History Records Found Advance Directives Advance Directive Response Recorded Date/ Time Advance Directives No May 15 4:31pm Advance Directive Response Recorded Date/ Time Advance Directives No May 15 3:31pm Chief Complaint and Reason for Visit Chief Complaint bee sting right anastasia om right foot Reason for Visit Bee sting reaction Reason for Visit Admit Date Chronic migraine without aura or status migrainosus July 14, 2025 1:45pm Therese Sarmiento virus infection June 1:45pm Chief Complaint Admit Date Headaches September 29, 2025 8 :38am Reason for Visit Admit Date Chronic migraine without aura or status migrainosus July 14, 2025 1:45pm Therese Sarmiento virus infection June 1:45pm Chronic fatigue September 29, 2025 8 :38am Chronic migraine without aura or status migrainosus September 29, 2025 8:38am Early satiety September 29, 2025 8 :38am Therese Sarmiento virus infection September 8:38am Additional Source Comments INFORMATION SOURCE (unrecogn ized section and content) DATE CREATED AUTHOR 03/07/2022 [facility] DATE CREATED AUTHOR AUTHOR'S YESIKA PINEDA 03/02/2025 [facility] EPIC Care Teams (unrecognized sec tion and content) Team Status: Active Member Role Status Dates NON STAFF Primary Care Provider Active Team Status: Inactive Member Role Status Dates Angela Quigley APRN Attending Provider Active S tart: May 15, 2024 End: May 15, 2024NON STAFFPrimary Care ProviderActiveStart: May 15, 2024 End: May 15, 2024Team MemberRelationshipSpecialtyStart DateEnd Date Kevin Pearl MD [address] [place] [phone] PCP - GeneralFamily Medicine04/16/24 Kevin Pearl MD [address] [place] [address] PCP - [facility] Beyhjxnbrx31/1/ Kevin Pearl MD [address] [place] [address] PCP - [place] Ozrqedsfhf31/1/24Team MemberRelationshipSpecialtyStart DateEnd Date Kevin Pearl MD [address] [place] [address] PCP - GeneralFamily Medicine04/16/24 Kevin Pearl MD [address] [place] [address] PCP - [facility] Alpllrfhtv13/1/ Kevin Pearl MD [address] [place] [address] PCP - [place] Sdyuwnaoze71/1/24Te MemberRelationshipSpecialtyStart DateEnd Date Kevin Pearl MD [address] [place] [address] PCP - [facility]04/16/24 Kevin Pearl MD [address] [place] [address] PCP - [facility] Eyvblsisyh58/1/ Kevin Pearl MD [address] [place] [address] PCP - [place] Unejiwknbf92/1/24Te MemberRelationshipSpecialtyStart DateEnd Date Kevin Pearl MD [address] [place] [address] PCP - [facility]04/16/24 Kevin Pearl MD [address] [place] [address] PCP - [facility] Lbcgceewfm06/1/ Kevin Pearl MD [address] [place] [address] PCP - [place] Fdcieuejxd38/1/24Te MemberRelationshipSpecialtyStart DateEnd Date Kevin Pearl MD [address] [place] [address] PCP - [facility]04/16/24 Kevin Pearl MD [address] [place] [address] PCP - [facility] Hnosrphaxd43/1/ Kevin Pearl MD [address] [place] [address] PCP - [place] Zmesiriirz97/1/24 Team Status: Active Member Role Status Dates Kevin Pearl MD Primary Care Provider Active Team Status: Inactive Member Role Status Dates Aftab Barboza DO Attending Provider Active Start: July 14, 2025 End: July 14, 2025MarAlda Rae Care ProviderActiveStart: July 14, 2025 End: July 14, 2025Team MemberRelationshipSpecialtyStart DateEnd Date Kevin Pearl MD PCP - [facility]04/16/24 Kevin Pearl MD [address] [place] [address] [facility] Jrzwgwgjdn58/1/ Kevin Pearl MD [address] [place] [address] PCP - [place] Bqqenhiarx34/1/244 Team Status: Active Member Role/Relationship Status Dates Kevin Pearl MD Primary Care Provider Active Team Status: Inactive Member Role/Relationship Status Dates Aftab Barboza DO Attending Provider Active Start: July 14, 2025 End: July 14, 2025Carrier ClinicAlda Rae Care ProviderActiveStart: July 14, 2025 End: July 14, 2025 Team Status: Inactive Member Role/Relationship Status Dates Kevin Pearl MD Primary Care Provider Active S tart: September 29, 2025 End: September 29, 2025Kevin Pearl MDAttending ProviderActiveStart: September 29, 2025 End: September 29, 2025 Goals (unrecognized section and content) Goals may be documented in a n alternate sectionGoals may be documented in an alternate sectionGoals may be documented in an alternate section Reason for Visit (unrecogniz ed section and content) ReasonCommentsHeadacheFollow-upCold all the time, shaking,FatigueNo energy DizzinessReasonCommentsFollow-up1 mHeadacheConstant headache FOR RECORDS PERTAINING TO PATIENTS WHO ARE [...] BE BASED ON THE PRIMARY CLINICAL RECORDS. [facility]. provides no warranty or guarantee of the accuracy or completeness of information in this document.
== END 2025-10-12 14:28 | disposition home or self-care (01) ==
LOC: MRI 14:27
PROVIDERS: PCP Family Medicine; Visit Provider Family Medicine
DX: G43.709 Chronic migraine without aura, not intractable, without status migrainosus (principal); R53.82 Chronic fatigue, unspecified
CPT/HCPCS: 70553; A9575

== ENCOUNTER 2025-10-19 09:47 | Outpatient (OUT) | payer BC, OTHER, SELFPAY ==
--- NOTE | 2025-10-19 09:51 | FL_ITS ---
The [place] [id number] Patient Name: CHRIS GARCIA MRN: [id number] date: 2005 Sex: F Assigned Patient Location: [place] Current Patient Location: [place] Accession/Order Number: [id number] Exam Date: 10/19/2025 09:54 Report Date: 10/19/2025 11:40 At the request of: DESIREE PEARL MD Procedure: FL cineradiography DOUBLE CONTRAST UPPER GI SERIES CLINICAL HISTORY: Early Satiety COMPARISON: None TECHNIQUE: Double contrast upper GI series was performed. 20 images were obtained. 2 minutes and 55 seconds of fluoroscopic time was utilized. FINDINGS: Manager Ui images unremarkable. The esophagus appears normal in caliber without evidence of stricture, mass or ulcer. No gastroesophageal reflux. No tertiary contractions. The stomach appears normal in contour without evidence of hernia mass or ulcer. Duodenal bulb and C-loop appears unremarkable. FL/[place] cineradiography IMPRESSION: UNREMARKABLE UPPER GI SERIES. Impression dictated by: Ry Arroyo Jr., D.OBrenda 10/19/2025 11:40 AM Dictation Location: [place] [address] Electronically authenticated by: [id number] Y Date: 10/19/2025 11:40
--- NOTE | 2025-10-19 09:51 | FL_ITS ---
The [address] [address] Patient Name: CHRIS GARCIA MRN: [id number] date: 2005 Sex: F Assigned Patient Location: [place] Current Patient Location: [place] Accession/Order Number: [id number] Exam Date: 10/19/2025 09:54 Report Date: 10/19/2025 11:40 At the request of: DESIREE PEARL MD Procedure: FL cineradiography DOUBLE CONTRAST UPPER GI SERIES CLINICAL HISTORY: Early Satiety COMPARISON: None TECHNIQUE: Double contrast upper GI series was performed. 20 images were obtained. 2 minutes and 55 seconds of fluoroscopic time was utilized. FINDINGS: Manager Power images unremarkable. The esophagus appears normal in caliber without evidence of stricture, mass or ulcer. No gastroesophageal reflux. No tertiary contractions. The stomach appears normal in contour without evidence of hernia mass or ulcer. Duodenal bulb and C-loop appears unremarkable. FL/[place] upper GI w air IMPRESSION: UNREMARKABLE UPPER GI SERIES. Impression dictated by: Mirna Aguila Jr.OBrenda 10/19/2025 11:40 AM Dictation Location: [place] [address] Electronically authenticated by: [id number] Y Date: 10/19/2025 11:40
--- OUTSIDE RECORDS SUMMARY | 2025-10-19 09:51 | XMS_ITS | Clinical Summary ---
Author Organization [facility] Address [address] [place] [address] Care Team Providers Care Fiber Technologist Name Role Phone Kevin Sherwood MD Primary Care Provider [phone] Kevin Sherwood MD Unavailable Allergies No known active allergies Medications MedicationSigDispense QuantityRefillsLast FilledStart DateEnd DateStatus EPINEPHrine (Epipen) 0.3 MG/0.3ML injection syringe Indications:Bee sting reaction, accidental or unintentional, subsequent encounterInject 0.3 mL (0.3 mg) as directed 1 (one) time for 1 dose use as directed for allergic reaction and then call 911 1 each 4Active Additional Information Patient not taking.Reported on 01/26/2025 fludrocortisone (Florinef) 0.1 MG tablet Indications:Autonomic dysfunctionTake 1 tablet (0.1 mg) by mouth Daily 30 tablet 5Active lmfrcgezql-sptadrtlyvfjt-ysrsljel 50-325-40 MG tablet Indications:Chronic rhinosinusitisTake 1 tablet by mouth 4 (four) times a day as needed for headaches 30 tablet 5Active norethindrone-ethinyl estradiol-iron (Microgestin FE 1.5/30) 1.5-30 MG-MCG tablet Indications:Dysfunctional uterine bleedingTake 1 tablet by mouth Daily 84 tablet 5Active rizatriptan GOLD BURNISHER (Maxalt-GOLD BURNISHER) 5 MG disintegrating tablet Indications:Migraine without aura and without status migrainosus, not intractableTake 1 tablet (5 mg) by mouth 1 (one) time if needed for migraine May repeat in 2 hours if unresolved. Do not exceed 30 mg in 24 hours. 9 tablet 5Active topiramate (Topamax) 25 MG tablet Indications:Migraine without aura and without status migrainosus, not intractableTake 1 tablet (25 mg) by mouth in the morning and 1 tablet (25 mg) before bedtime. 60 tablet 5Active Active Problems ProblemNoted DateDiagnosed DateDysfunctional uterine xziibufc65/07/2025 Assessment & Plan (03/01/2025 12:22 PM EDT): Irregular periods and start OCP. Autonomic nxrewfbjxla66/04/2025 Assessment & Plan (03/01/2025 12:22 PM EDT): Symptoms slightly better and continue florinef. Continue with increased water and salt intake. Assessment & Plan (01/26/2025 10:34 AM EST): Symptoms suggestive of NCS. Add florinef. Increased salt and water intake. Migraine without aura and without status migrainosus, not fyaohhlkcln46/04/2025 Assessment & Plan (03/01/2025 12:24 PM EDT): PHAM worse and not responding to fioricet. Try maxalt. Assessment & Plan (01/26/2025 10:35 AM EST): PHAM likely related to congestion and sinus pressure. Start fioricet PRN. Hecvklh8501/26/2025 Assessment & Plan (01/26/2025 10:34 AM EST): Check labs. Chronic mlobulmadbimce60/04/2025 Assessment & Plan (01/26/2025 10:35 AM EST): Evidence of congestion likely causing PHAM. Start flonase. Bee sting /02/2024 Assessment & Plan (05/26/2024 4:29 PM EDT): Recent sting and developed reaction. Improved and monitor. Script for epipen to patient. Chronic nqodmtyzwuru12/22/2024 Resolved Problems ProblemNoted DateDiagnosed DateResolved DateRib pain/02/2025 Assessment & Plan (08/26/2024 8:39 AM EDT): Pain for almost 2 years after trauma and unclear etiology. Treat with prednisone. Use heat PRN. Check x-ray. Acute pain of left knee/02/2025 Assessment & Plan (05/26/2024 4:29 PM EDT): Pain improved with PT and continue. Continue home exercises and use OTC PRN. Assessment & Plan (04/16/2024 1:32 PM EDT): Injury over a month ago and continued pain. Treat with prednisone and use relafen PRN. Ice PRN. Usebrace for support. Start PT. If no improvement will need MRI. Acute sinusitis, uzjwbxwrnpo43Epistaxis Generalized anxiety ygtlgrek88 Social History Tobacco UseTypesPacks/DayYears UsedDateSmoking Tobacco: NeverSmokeless Tobacco: Never Tobacco Cessation:Counseling Given: Not Answered B1300 Health LiteracyAnswerDate RecordedHow often do you need to have someone help you when you read instructions, pamphlets, or other written material from your doctor or pharmacy?Never08/25/2024Social Connection and Isolation Panel AnswerDate RecordedIn a typical week, how many times do you talk on the phone with family, friends, or neighbors?Twice a week08/25/2024How often do you get together with friends or relatives?Twice a week08/25/2024How often do you attend methodist or holiness services?More than 4 times per year08/25/2024o you belong to any clubs or organizations such as methodist groups, unions, fraternal or athletic groups, or school groups?Yes08/25/2024How often do you attend meetings of the clubs or organizations you belong to?More than 4 times per year08/25/2024 Are you , , , , never , or living with a partner?Never mmpjiah6508/25/2024UDIT-CAnswerDate RecordedQ1: How often do you have a drink containing alcohol?Never08/25/2024Q2: How many drinks containing alcohol do you have on a typical day when you are drinking?Patient does not drink08/25/2024Q3: How often do you have six or more drinks on one occasion? Never08/25/2024Overall Financial Resource Strain (CARDIA)AnswerDate RecordedHow hard is it for you to pay for the very basics like food, housing, medical care, and heating?Patient onmwstju32/01/2024[facility] Occup[facility] Health - Occupational Stress QuestionnaireAnswerDate RecordedDo you feel stress - tense, restless, nervous, or anxious, or unable to sleep at night because yourmind is troubled all the time - these days?Not at all08/25/2024Exercise Vital SignAnswer Date RecordedOn average, how many days per week do you engage in moderate to strenuous exercise (like a brisk walk)?5 days08/25/2024On average, how many minutes do you engage in exercise at this level?30 min08/25/2024Hunger Vital SignAnswerDate RecordedWithin the past 12 months, you worried that your food would run out before you got the money to buymore.Patient /01/2024 Within the past 12 months, the food you bought just didn't last and you didn't have money to get more.Patient qdotrczg54/01/2024RAPARE - TransportationAnswer Date RecordedIn the past 12 months, has lack of transportation kept you from medical appointments or from getting medications?Patient normxyaj73/01/2024In the past 12 months, has lack of transportation kept you from meetings, work, or from getting things needed for daily living?Patient miriwcts69/01/2024Housing Stability Vital SignAnswerDate RecordedIn the last 12 months, was there a time when you were not able to pay the mortgage or rent on time?Patient declined 08/25/2024In the past 12 months, how many times have you moved where you were living?t any time in the past 12 months, were you homeless or living in a [place] (including now)?No08/25/2024CommentsUnknownSex and Gender InformationValueDate RecordedSex Assigned at OckewJhydmq91/09/2024 4:14 PM EDT Legal KybPykazl20/15/2023 9:17 AM EDTGender CjpskazfWitqpb39/09/2024 4:14 PM EDT Sexual QnssdjwqugsTuayzznz56/09/2024 4:14 PM EDT Last Filed Vital Signs Vital SignReadingTime TakenCommentsBlood Wxvgnfcm040/5804 11:37 AM EDT Zlmvu532503/01/2025 11:37 AM OBDCzysqjkzetr66.4 ??C (97.5 ??F)03/01/2025 11:37 AM EDTRespiratory Lgtr100803/01/2025 11:37 AM EDTOxygen Oinwamgfvc35%03/01/2025 11:37 AM EDTInhaled Oxygen Concentration--Zyncnt34.2 kg (104 lb)03/01/2025 11:37 AM GDNPpyurf948.9 cm (4' 11 )03/01/2025 11:37 AM EDTBody Mass Index21.01003/01/2025 11:37 AM EDT Plan of Treatment Health MaintenanceDue DateLast DoneCommentsCOVID-19 Vaccine ( season) 2025Influenza Vaccine (#1)2025Pneumococcal Vaccine: Pediatrics (0 to 5 Years) and At-Risk Patients (6 to 64 Years)Aged OutNo longer eligible based on patient's age to complete this topic Insurance Care Teams Team MemberRelationshipSpecialtyStart DateEnd Date Kevin Sherwood MD PCP - GeneralFamily Medicine04/16/24 Kevin Sherwood MD [address] [place] [address] PCP - [facility] Dmpcifqfig36/1/
--- OUTSIDE RECORDS SUMMARY | 2025-10-19 09:51 | XMS_ITS | Clinical Summary ---
Author Organization [facility] Address [id number] [address] [place] [address] Care Team Providers Care Nursery School Teacher Name Role Phone Kevin Sherwood MD Primary Care Provider [phone] Allergies No known active allergies Medications No known medications Social History Tobacco UseTypesPacks/DayYears UsedDateSmoking Tobacco: NeverSmokeless Tobacco: NeverChildcareAnswerDate OfbqldnqTizsunwevRdubhly28/12/2019EmploymentAnswerDate AxioxlqcMbrebweyldHuprakh44/12/2019Purpose - LifeAnswerDate RecordedPurpose and direction in yhskCpaoasl01/11/2021CommentsNoSex and Gender Information ValueDate RecordedSex Assigned at BirthNot on fileLegal QabIurisg96/06/2015 12:05 PM EDTGender IdentityNot on fileSexual OrientationNot on file Last Filed Vital Signs Vital SignReadingTime TakenCommentsBlood Ddyfegmh984/80011/29/2020 5:01 PM EST Thout24467/05/2021 5:01 PM LEIFeznmrfyyuy95.6 ??C (97.8 ??F)01/13/2020 12:41 PM ESTRespiratory Ypri1159 3:30 PM ESTOxygen Sekwlnpvwl154%01/13/2020 3:30 PM ESTInhaled Oxygen Concentration--Rawtni19.5 kg (98 lb)11/29/2020 5:01 PM EST Deupkx011.9 cm (4' 11 )11/29/2020 5:01 PM ESTBody Mass Index19.7911/29/2020 5:01 PM EST Plan of Treatment Health MaintenanceDue DateLast DoneCommentsDepression Zqxqcdzbb30/23/2017Tobacco Shtbdwnod09/23/2017Adult BMI Kxgwoztjy43/23/2023DTaP,Tdap and Td Vaccines (1 - Tdap)02/15/2024Influenza Kcdhydt3107/26/2025 Medical Devices Not on file Insurance Care Teams Team MemberRelationshipSpecialtyStart DateEnd Date Kevin Sherwood MD PCP - GeneralFamily Gwnffcec19/29/20
--- OUTSIDE RECORDS SUMMARY | 2025-10-19 09:53 | XMS_ITS | CCD ---
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 Role Phone DR KEVIN PEARL Attending Unavailable DAE, DR KEVIN Gillette Admitting Unavailable ZIBAYLEEER, DR GILBERTO Rodriguez Consulting Unavailable DAE, DR [...] MD Unavailable Aftab Barboza DO Attending Provider [phone] Kevin Pearl MD Primary Care Provider [phone] Kevin Pearl MD Attending Provider [phone] Medications Current Medications MedicationDrug Class(es)DatesSig (Normalized)Sig (Original)acetaminophen 325 mg / butalbital 50 mg / caffeine 40 mg oral tablet (7 sources)Barbiturate, Central Nervous System Stimulant, MethylxanthineStart: 86-24-1755krlw 1 tablet by mouth four times daily as needed for headache cosjkgrxwl-vfxqbkkbeoysk-lifjejxk 50-325-40 MG tablet Indications: Chronic rhinosinusitis Take 1 tablet by mouth 4 (four) times a day as needed for headaches 30 tablet 1 01/26/2025 [id number] 0.3 ml EPINEPHrine 1 mg/ml auto-injector (7 sources)alpha-Adrenergic Agonist, beta-Adrenergic Agonist, Catecholamine Start: 47-46-0574XXZFNSAhisb (Epipen) 0.3 MG/0.3ML injection syringe Indications: Bee sting reaction, accidental or unintentional, subsequent encounter Inject 0.3 mL (0.3 mg) as directed 1 (one) time for 1 dose use as directed for allergic reaction and then call 911 1 each 2 05/26/2024 Active Ethinyl Estradiol / Ferrous fumarate / Norethindrone (2 sources)EstrogenStart: 24-68-2085xqnusevikjjdg-ethinyl estradiol-iron (Microgestin FE 1.5/30) 1.5-30 MG-MCG tablet Indications: Dysfunctional uterine bleeding Take 1 tablet by mouth Daily 84 tablet 3 03/01/2025 Active fludrocortisone acetate 0.1 mg oral tablet (7 sources)Start: 78-99-3704doxb 1 tablet by mouth once dailyfludrocortisone (Florinef) 0.1 MG tablet Indications: Autonomic dysfunction Take 1 tablet (0.1 mg) by mouth Daily 30 tablet 3 01/26/2025 ActivepredniSONE 10 mg oral tablet (3 sources)Start: 08-26-2024 End: 90-41-2044tocg 6 tablets by mouth once daily, then [...] sources)Serotonin-1b and Serotonin-1d Receptor AgonistStart: 03-01-2025 rizatriptan EQUIPMENT SUPERINTENDENT (Maxalt-EQUIPMENT SUPERINTENDENT) 5 MG disintegrating tablet Indications: Migraine without aura and without status migrainosus, not intractable (CMS/HCC) Take 1 tablet (5 mg) by mouth 1 (one) time if needed for migraine May repeat in 2 hours if unresolved. Do not exceed 30 mg in 24 hours. 9 tablet 2 03/01/2025 Active Start: 21-41-5348srygiqmgzmm EQUIPMENT SUPERINTENDENT (Maxalt-EQUIPMENT SUPERINTENDENT) 5 MG disintegrating tablet Indications: Migraine without aura and without status migrainosus, not intractable (CMS/HCC) Take 1 tablet (5 mg) by mouth 1 (one) time if needed for migraine May repeat in 2 hours if unresolved. Do not exceed 30 mg in 24 hours. 9 tablet 2 03/01/2025 Active Completed/Discontinued Medications MedicationDrug Class(es)DatesSig (Normalized)Sig (Original)Atogepant (2 sources)Start: 07-14-2025 End: 48-97-4205bxfp 1 tablet by mouth once dailyAtogepant (Qulipta) 60 mg tablet Discontinued 60 MG PO Daily July 13, 2025 11:00pm September 29, 2025 8:57amStart: 12-45-9831vjkt 1 tablet by mouth once dailyAtogepant (Qulipta) 60 mg tablet Active 60 MG PO Daily July 14, 2025 12:00am Complies with drug therapycephalexin 500 mg oral capsule (3 sources)Cephalosporin AntibacterialStart: 05-15-2024 End: 43-99-7629mwxt 1 capsule by mouth twice dailyCephalexin 500 mg capsule Discontinued 500 MG PO Twice daily 14 7 0 May 14, 2024 11:00pm September 29, 2025 8:57amnabumetone 500 mg oral tablet (6 sources)Nonsteroidal Anti-inflammatory DrugStart: 65-69-7819Jwobrcinaw Active MG PO May 15, 2024 12:00amStart: 04-16-2024 End: 60-25-9266Ylnrdclrqs 500 mg tablet Discontinued MG PO May 14, 2024 11:00pm September 29, 2025 8:57am Problems Active Problems Problem ClassificationProblemDateDocumented DateEpisodic/ChronicHeadache; including migraine (10 sources)Migraine without aura, not refractory ; Translations: [Migraine without aura, not intractable, without status migrainosus]Onset: 01-26-2025 82-94-5095GoschuxCbuwksrh; including migraine (7 sources)Sinus headache; Translations: [Sinus headache]Onset: 01-26-2025 69-71-4698MfxykpekKiajexv and fatigue (2 sources)Fatigue; Translations: [Chronic fatigue, unspecified]09-29-2025 ChronicOther female genital disorders (5 sources)Abnormal uterine bleeding; Translations: [Other specified abnormal uterine and vaginal bleeding]Onset: 003684-27-8179IyhvupcXigwe gastrointestinal disorders (1 source)Other constipation; Translations: [OTHER CONSTIPATION]Onset: 36-63-7284FxvmskmjNrwnw nervous system disorders (13 sources)Disorder of autonomic nervous system; Translations: [Disorder of the autonomic nervous system, unspecified]Onset: 505944-69-5847ZbzxmeeZxirp upper respiratory infections (10 sources)Chronic sinusitis, unspecified; Translations: [Chronic rhinitis] Onset: 641243-23-3992ApsoyraMfyrkkgml by nonmedicinal substances (13 sources)Bee sting; Translations: [Toxic effect of venom of bees, accidental (unintentional), initial encounter]Onset: 365124-95-9796KtoreuqeSvfjvyuz codes; unclassified (2 sources)Early satiety; Translations: [Early satiety]55-11-7609NhyqnsnnWcesu infection (5 sources)Therese-Sarmiento virus disease; Translations: [Infectious mononucleosis, unspecified without complication]78-39-6115Yypielqu Past or Other Problems Problem ClassificationProblemDateDocumented DateEpisodic/ChronicAnxiety disorders (9 sources)Generalized anxiety disorder; Translations: [Generalized anxiety disorder]Onset: 04-15-2024 Resolved: 074945-37-2158ZankojsJyneixg and fatigue (10 sources)Fatigue; Translations: [Other fatigue]Onset: EpisodicOther gastrointestinal disorders (9 sources)Chronic constipation; Translations: [Other constipation]Onset: 014324-08-7205MlnxjisiTsfdl lower respiratory disease (9 sources)Rib pain; Translations: [Pleurodynia]Onset: 08-26-2024 Resolved: 830226-60-3850EpfrnwbtNdbvj non-traumatic joint disorders (9 sources)Pain in left knee; Translations: [Pain in joint, lower leg]Onset: 04-16-2024 Resolved: 942917-22-2006VfrcikzgIphhh upper respiratory disease (9 sources)Bleeding from nose; Translations: [Epistaxis]Onset: 04-15-2024 Resolved: 194442-91-7835ScigqkmuYrwjg upper respiratory infections (9 sources)Acute sinusitis; Translations: [Acute sinusitis, unspecified]Onset: 04-15-2024 Resolved: 433958-27-0706Kwuieqcf Results Test NameValueInterpretationReference RangeFacilityALL CBC WITH AUTO DIFFon 80-94-0023IKBIJPKBG ABSOLUTE GIGV6PEZE HealthcareBasophils/100 WBC (Bld)0.6 %0.2 - 2.0 %[facility]OMS HealthcareEosinophils/100 WBC (Bld)1.4 %0.9 - 7.0 %[facility] Erythrocyte distribution width (RBC) [Ratio]13.6 %11.0 - 15.0 %[facility] Hematocrit (Bld) [Volume fraction]37.3 %36.0 - 48.0 %[facility]SmithvilleHemoglobin (Bld) [Mass/Vol]12.6 g/dL12.0 - 16.0 g/dLSaint Luke's North Hospital–SmithvilleIMMATURE GRANULOCYTES ABS AUTO0.01NOOH HealthcareImmature granulocytes/100 WBC (Bld)0.1 %0.0 - 0.5 % [facility] HealthcareInterpretation and review of laboratory resultsAbnormalNOOH HealthcareLYMPHOCYTES ABSOLUTE KAML0WELZ HealthcareLymphocytes/100 WBC (Bld)28.4 %20.5 - 60.0 %[facility] HospitalH (RBC) [Entitic mass]30.4 pg26.7 - 34.0 pgSaint Luke's HospitalHC (RBC) [Mass/Vol]33.8 g/dL29.9 - 35.2 g/dLSaint Luke's HospitalV (RBC) [Entitic vol]90.1 fL81.0 - 99.0 fLSaint Luke's North Hospital–SmithvilleMONOCYTES ABSOLUTE AUTO0.7NOMS HealthcareMonocytes/100 WBC (Bld)10.6 %1.7 - 12.0 %NOM HealthcareNEUTROPHILS ABSOLUTE AUTO4.1NOMS HealthcareNeutrophils/100 WBC (Bld)58.9 %43.0 - 75.0 %[facility] HealthcarePlatelet mean volume (Bld) [Entitic vol]9 fLLow9.5 - 13.5 fLNOSaint John's Breech Regional Medical CenterTBH EO #0.1NOMS HealthcareTB TLU332XUHG [facility] RBC4.14LowNOMS [facility] HospitalTB WBC6.9NOOH HealthcareCLINISYNCNOKLAHOMA ER & [facility] HealthcareMONO SCREEN*on 05-51-8942YCM MONONegativeNEGATIVENOOH HealthcareCLINISYNCNOKLAHOMA ER & HOSPITAL [facility] EDMOND HealthcareALL CBC WITH AUTO DIFFon 60-28-0554KFYYDEYVD ABSOLUTE AUTO0.1N[facility] Healthcare Basophils/100 WBC (Bld)0.8 %0.2 - 2.0 %[facility] HealthcareEosinophils/100 WBC (Bld) 3.4 %0.9 - 7.0 %[facility]OMS HealthcareErythrocyte distribution width (RBC) [Ratio]12.9 %11.0 - 15.0 %[facility]OMS HealthcareHematocrit (Bld) [Volume fraction]37.4 %36.0 - 48.0 %NOM HealthcareHemoglobin (Bld) [Mass/Vol]12.4 g/dL12.0 - 16.0 g/dLSaint Luke's North Hospital–SmithvilleIMMATURE GRANULOCYTES ABS AUTO0.01NOSaint John's Breech Regional Medical CenterImmature granulocytes/100 WBC (Bld)0.2 %0.0 - 0.5 %NOM HealthcareInterpretation and review of laboratory resultsAbnormalNOOH HealthcareLYMPHOCYTES ABSOLUTE AUTO1.6 NOMNorth Kansas City HospitalLymphocytes/100 WBC (Bld)25.7 %20.5 - 60.0 %[facility] HospitalH (RBC) [Entitic mass]30 pg26.7 - 34.0 pgNOEllett Memorial HospitalHC (RBC) [Mass/Vol]33.2 g/dL29.9 - 35.2 g/dLSaint Luke's HospitalV (RBC) [Entitic vol]90.6 fL81.0 - 99.0 fL N[facility] HealthcareMONOCYTES ABSOLUTE AUTO0.7NOOH HealthcareMonocytes/100 WBC (Bld) 10.2 %1.7 - 12.0 %[facility] HealthcareNEUTROPHILS ABSOLUTE AUTO3.8[facility] Healthcare Neutrophils/100 WBC (Bld)59.7 %43.0 - 75.0 %[facility]S HealthcarePlatelet mean volume (Bld) [Entitic vol]8.6 fLLow9.5 - 13.5 fLNOMS HealthcareTB EO #0.2NOMS HealthcareTB [id number] HealthcareTB RBC4.13LowNOMS [facility] HospitalTB WBC6.4NOMarshfield Medical Center [facility] Ladysmith Rusk CountyMETRO IRON AND TIBCon 39-38-2895SWB IRON96 ug/dL50.0 - 170.0 ug/dLSaint Luke's North Hospital–SmithvilleTB PERCENT IRON BIJPDVOFBW50.9 %NOMS HealthcareTB TOTAL IRON BINDING FNECXWXM990 ug/dL250.0 - 450.0 ug/dLNOCorey Hospital HealthcareXR Ribs - bilateral GE 3 Views and Chest PAon 46-01-0165[place]zm[place] [address] XRay Report Signed Patient: CHRIS LI MR#: [id number] : 2005 Acct:[id number] Age/Sex: 19 / F ADM Date: 08/28/24 Loc: RAD Attending Dr: Kevin Pearl M.D. Ordering Physician: Kevin Pearl M.D. Date of Service: 08/28/24 Procedure(s): XR ribs BI min 4V w CXR1V Accession Number(s): [id number] cc: Kevin Pearl M.D. [facility] [place] [address] Patient Name: CHRIS LI MRN: [id number] date: 2005 Sex: F Assigned Patient Location: [facility] Current Patient Location: Accession/Order Number: [id number] Exam Date: 08/28/2024 13:42 Report Date: 08/30/2024 [...] M.D. Signed By: 08/30/24815 DD/ 2 TD/TT: [place] Counselor:TBHRadiology, Radiologist, - 08/31/2024 [place] [address] XRay Report Signed Patient: CHRIS LI MR#: [id number] : 2005 Acct:[id number] Age/Sex: 19 / F ADM Date: 08/28/24 Loc: [facility] Attending Dr: Kevin Pearl M.D. Ordering Physician: Kevin Pearl M.D. Date of Service: 08/28/24 Procedure(s): XR ribs BI min 4V w CXR1V Accession Number(s): [id number] cc: Kevin Pearl M.D. [facility] [place] [address] Patient Name: CHRIS LI MRN: [id number] date: 2005 Sex: F Assigned Patient Location: [facility] Current Patient Location: Accession/Order Number: [id number] Exam Date: 08/28/2024 13:42 Report Date: 08/30/2024 [...] M.D. Signed By: 08/30/24815 DD/ 2 TD/TT: [place] Counselor: [facility]villeRadiology Study observation (narrative)[facility] DovoXR Ribs - bilateral GE 3 Views and Chest PAOrdered By: Radiologist Radiology on 08-30-2024 [facility] Dovo Work Phone: cbc AUTO DIFFon 37-16-1660MEPF #0.1 103/ulNormal 0.0-0.1The [facility] HospitalComment on above:Performed By: #### CBC #### [facility] [address] [place] [address] Dr. Jay StewartBasophils/100 WBC (Bld)0.6 %Normal0.2-2.0The [facility] Comment on above:Performed By: #### CBC #### [facility] [address] [place] [address] Dr. aJy Mac #0.1 103/ulNormal0.0-0.7The [facility] HospitalComment on above: Performed By: #### CBC #### [facility] [address] [place] [address] Dr. Jay Ambroseosinophils/100 WBC (Bld)0.6 %Critically low0.9-7.0The [facility] HospitalComment on above:Performed By: #### CBC #### [facility] [address] [place] [address] [address] Jay Ambroserythrocyte distribution width (RBC) [Ratio]13.0 %Mxjaxz41.0-15.0 The [facility] HospitalComment on above:Performed By: #### CBC #### [facility] [address] [place] [address] Dr. Jay StewartHematocrit (Bld) [Volume fraction]41.8 %Nlcatp58.0-48.0The [facility] HospitalComment on above:Performed By: #### CBC #### [facility] [address] [place] [address] Dr. Jay StewartHemoglobin (Bld) [Mass/Vol]13.9 g/gYAjmjkv78.0-16.0The [facility] HospitalComment on above:Performed By: #### CBC #### [facility] [address] [place] [address] Dr. Jay Dueñas #0.03 10e3/ulNormal0.00-0.03The [facility] HospitalComment on above:Performed By: #### CBC #### [facility] [address] [place] [address] Dr. Jay Dueñas %0.3 %Normal0.0-0.5The [facility] HospitalComment on above: Performed By: #### CBC #### [facility] [address] [place] [address] Dr. Jay Lawton #1.9 103/ulNormal1.2-3.8The [facility] HospitalComment on above:Performed By: #### CBC #### [facility] [address] [place] [address] Dr. Jay Warnerhocytes/100 WBC (Bld)18.0 %Critically low20.5-60.0The [facility] HospitalComment on above:Performed By: #### CBC #### [facility] [address] [place] [address] Dr. Jay WolfUAL DIFF REQNONormalThe [facility] HospitalComment on above: Performed By: #### CBC #### [facility] [address] [place] [address] Dr. Jay Avery (RBC) [Entitic mass]30.4 lvWzylxt26.7-34.0The [facility] HospitalComment on above:Performed By: #### CBC #### [facility] [address] [place] [address] Dr. Jay QiuHC (RBC) [Mass/Vol]33.3 g/oRZammlw01.9-35.2The [facility] HospitalComment on above:Performed By: #### CBC #### [facility] [address] [place] [address] Dr. Jay Alvarez (RBC) [Entitic vol]91.5 zBMoelra20.1-95.6The [facility] HospitalComment on above:Performed By: #### CBC #### [facility] [address] [place] [address] Dr. Jay Blas #0.7 103/ulNormal0.3-0.8The [facility] HospitalComment on above:Performed By: #### CBC #### [facility] [address] [place] [address] Dr. Jay Fischerocytes/100 WBC (Bld)6.3 %Normal1.7-12.0[facility] Comment on above:Performed By: #### CBC #### [facility] [address] [place] [address] Dr. Jay Peralta #7.7 103/ulCritically high1.4-6.5The [facility] Comment on above:Performed By: #### CBC #### [facility] [address] [place] [address] Dr. Jay Chavisutrophils/100 WBC (Bld)74.2 %Rffmhi12.0-75.0The [facility] HospitalComment on above:Performed By: #### CBC #### [facility] [address] [place] [address] Dr. Jay Hill mean volume (Bld) [Entitic vol]8.9 fLCritically low 9.5-13.5The [facility] HospitalComment on above:Performed By: #### CBC #### [facility] [address] [place] [address] Dr. Jay AdanT277 103/heDuyrnh559-437Brf [facility] HospitalComment on above: Performed By: #### CBC #### [facility] [address] [place] [address] Dr. Jay RojoC4.57 106/ulNormal3.40-5.30The [facility] on above:Performed By: #### CBC #### [facility] [address] [address] [address] Jay StewartWBC10.4 103/ulNormal4.0-11.0The [facility] HospitalComment on above:Performed By: #### CBC #### [facility] [address] [address] [address] Jay Morales PROFILEon 35-61-2402Uslytid [Mass/Vol]5.0 g/dLNormal3.4-5.0 The [facility] HospitalComment on above:Performed By: #### TSH, LIVER, BMP #### [facility] [address] [place] [address] Dr. Jay StewartAlbumin/Globulin [Mass ratio]1.3 {ratio}NormalThe [facility] HospitalComment on above:Performed By: #### TSH, LIVER, BMP #### [facility] [address] [address] [address] Jay Frank [Catalytic activity/Vol]84 U/KDctemx79-501Egk [facility] HospitalComment on above:Performed By: #### TSH, LIVER, BMP #### [facility] [address] [place] [address] Dr. aJy Morales [Catalytic activity/Vol]14 U/NFsverp21-29Ztl [facility] on above:Performed By: #### TSH, LIVER, BMP #### [facility] [address] [address] [address] Jay Gonzales [Catalytic activity/Vol]12 U/LCritically xhr90-55Uau [facility] on above:Performed By: #### TSH, LIVER, BMP #### [facility] [address] [place] [address] Dr. Jay Peña, CONJUGATED0.3 mg/dLNormal0.0-0.3The [facility] Comment on above:Performed By: #### TSH, LIVER, BMP #### [facility] [address] [address] [address] Jay StewartBilirubin [Mass/Vol]1.7 mg/dLCritically high0.2-1.3The [facility] HospitalComment on above:Performed By: #### TSH, LIVER, BMP #### [facility] [address] [place] [address] Dr. Jay StewartGlobulin (S) [Mass/Vol]3.9 g/dLNormalThe [facility] HospitalComment on above:Performed By: #### TSH, LIVER, BMP #### [facility] [address] [place] [address] Dr. Jay StewartProtein [Mass/Vol]8.9 g/dLCritically high6.1-8.2The [facility] HospitalComment on above:Performed By: #### TSH, LIVER, BMP #### [facility] [address] [place] [address] Dr. Jay StewartPROF CHEM 8 (BAS METB)on 98-46-9561Nlrtk gap [Moles/Vol]14.9 mmol/LNormalChildren'S Hospital Of ColumbusComment on above:Performed By: #### TSH, LIVER, BMP #### [facility] [address] [place] [address] Dr. Jay StewartCalcium [Mass/Vol]9.4 mg/dLNormal8.5-10.1[facility] Comment on above:Performed By: #### TSH, LIVER, BMP #### [facility] [address] [place] [address] Dr. Jay StewartChloride [Moles/Vol]102 mmol/LZdpfdq83-434Bbi [facility] Comment on above:Performed By: #### TSH, LIVER, BMP #### [facility] [address] [place] [address] Dr. Jay StewartCO2 [Moles/Vol]25.5 mmol/LIpyybr78.0-30.0The [facility] Comment on above:Performed By: #### TSH, LIVER, BMP #### [facility] [address] [place] [address] Dr. Jay StewartCreatinine [Mass/Vol]0.78 mg/dLNormal0.52-1.04The [facility] HospitalComment on above:Performed By: #### TSH, LIVER, BMP #### [facility] [address] [address] [address] Jay StewartGlucose [Mass/Vol]91 mg/vMPbbbfy01-104Ril [facility] Comment on above:Performed By: #### TSH, LIVER, BMP #### [facility] [address] [place] [address] Dr. Jay StewartPotassium [Moles/Vol]4.4 mmol/LNormal3.4-5.0The [facility] Comment on above:Performed By: #### TSH, LIVER, BMP #### [facility] [address] [place] [address] [address] Jay StewartSodium [Moles/Vol]138 mmol/CXgpmzi255-567Qep [facility] Comment on above:Performed By: #### TSH, LIVER, BMP #### [facility] [address] [place] [address] Dr. Jay StewartUrea nitrogen [Mass/Vol]14.0 mg/dLNormal6.4-19.3The [facility] HospitalComment on above:Performed By: #### TSH, LIVER, BMP #### [facility] [address] [place] [address] Dr. Jay Morin nitrogen/Creatinine [Mass ratio]17.9 mg/mgNoSelect Medical Cleveland Clinic Rehabilitation Hospital, Edwin ShawComment on above:Performed By: #### TSH, LIVER, BMP #### [facility] [address] [place] [address] Dr. Jay Michele 01-72-8086DET2.496 uIU/mLNormal0.430-3.750The [facility] HospitalComment on above:Performed By: #### TSH, LIVER, BMP #### [facility] [address] [place] [address] Dr. Jay Butts [facility] BELOWMarymount HospitalComment on above: Result Comment: <0.34 UIU/ml HYPERTHYROID 0.34-5.60 UIU/ml EUTHYROID >5.60 UIU/ml HYPOTHYROIDPerformed By: #### TSH, LIVER, BMP #### [facility] [address] [address] [address] Jay StewartXR ABD FLAT_UPon 15-91-7943KN ABD FLAT_UPEXAMINATION: XR ABD FLAT_UP HISTORY: Constipation [...] Electronically authenticated by: GILBERTO KUNZ Date: 2022-03-01 16:57[facility] Vital Signs Date TimeVital SignValuePerforming CilwrbtgvZxvddpbj94-59-5364 08:56-0500Body egtzya932.46 cmKevin Pearl MD Work Phone: [phone] [place], [place] 98[address]11-05-2025 08:56-0500 Body soluqpxnssw07.3 [degF]Kevin Pearl MD Work Phone: [phone]11-05-2025 08:56-0500 Diastolic blood ialjwffo06 mm[Hg]Kevin Pearl MD Work Phone: [facility]11-05-2025 08:56-0500 Heart rate89 /minKevin Pearl MD Work Phone: [phone] [place], [place] 98[address]11-05-2025 08:56-0500 Respiratory rate20 /minKevin Pearl MD Work Phone: [phone]-[facility]11-05-2025 08:56-0500 SaO2% (BldA) [Mass fraction]97 %Kevin Pearl MD Work Phone: [facility]11-05-2025 08:56-0500 Systolic blood xdlaupog459 mm[Hg]Kevin Pearl MD Work Phone: [phone])[address]08-20-2025 13:53-0400 Body ytttgz14.9 kgKevin Pearl MD Work Phone: [phone])[address]08-20-2025 13:53-0400 Diastolic blood etcnqkfr65 mm[Hg]Kevin Pearl MD Work Phone: [phone]08-20-2025 13:53-0400 Heart rate75 /minKevin Pearl MD Work Phone: [phone])[address]08-20-2025 13:53-0400 SaO2% (BldA) [Mass fraction]98 %Kevin Pearl MD Work Phone: [phone])[address]08-20-2025 13:53-0400 Systolic blood pmcisdmr032 mm[Hg]Kevin Pearl MD Work Phone: [phone]04-07-2025 11:37-0400 Body wytpki129.9 cmKevin Pearl MD Work Phone: [facility]SmithvilleGabcjgwhlk34-57-4314 11:37-0400Body mass index (BMI) [Ratio]21.01 kg/m2Kevin Pearl MD Work Phone: [facility]SmithvilleBpqfwazycs09-38-6629 11:37-0400Body temperature 97.5 [degF]Kevin Pearl MD Work Phone: [facility]SmithvilleAsrduppvym99-86-6509 11:37-0400Body tqjypj49.17 kgKevin Pearl MD Work Phone: [facility]SmithvilleCbcgasmcwq10-86-5893 11:37-0400Diastolic blood uzkldqck62 mm[Hg]Kevin Pearl MD Work Phone: [facility]SmithvilleJfgahdqijd80-66-2475 11:37-0400Heart rate95 /min Kevin Pearl MD Work Phone: [facility]SmithvilleUocmhnjhhz07-28-9849 11:37-0400Respiratory rate20 /minKevin Pearl MD Work Phone: [facility]SmithvilleVrvbtbntmw60-84-4494 11:37-9491GpQ0% (BldA) [Mass fraction]98 %Kevin Pearl MD Work Phone: [facility]SmithvilleWpnfvybmvf61-95-7846 11:37-0400Systolic blood ymyivdpo297 mm[Hg]Kevin Pearl MD Work Phone: [facility]SmithvilleHprnlahilp23-30-4955 09:54-0500Body qalaeh249.9 cmKevin Pearl MD Work Phone: [facility]SmithvillePonijsacec23-80-5761 09:54-0500Body mass index (BMI) [Ratio]20.8 kg/m2Kevin Pearl MD Work Phone: [facility]SmithvilleHudtmzwjqb65-42-8757 09:54-0500Body temperature 97.11 [degF]Kevin Pearl MD Work Phone: [facility]SmithvilleFwfbyqivyf46-34-6813 09:54-0500Body .72 kgKevin Pearl MD Work Phone: [facility]SmithvilleOudrujukyl68-97-5590 09:54-0500Diastolic blood yategqwx14 mm[Hg]Kevin Pearl MD Work Phone: [facility]SmithvilleDacjjbmdpq84-13-4563 09:54-0500Heart rate90 /min Kevin Pearl MD Work Phone: [facility]SmithvilleFkwwtbfdvk57-68-7816 09:54-0500Respiratory rate20 /minKevin Pearl MD Work Phone: [facility]SmithvilleBplcagnghh68-99-2082 09:54-3505FjB2% (BldA) [Mass fraction]97 %Kevin Pearl MD Work Phone: [facility]SmithvilleHaegirarws93-92-6739 09:54-0500Systolic blood kqrecwdf12 mm[Hg]Kevin Pearl MD Work Phone: [facility] [facility]Fkbnweyqtr73-18[facility]2035 16:42-0400Body .32 cm[facility]06[facility] 16:42-0400Body mass index (BMI) [Percentile] Per age and sex46.3 %[facility]06-21-2024 16:42-0400Body mass index (BMI) [Ratio]21.3 kg/a6IfyspfaazEast [facility] Regional Hospital06-21-2024 16:42-0400Body pgzcyeqxlmo24.5 [degF][facility]06-21-2024 16:42-0400Body .32 kg[facility] 05-15-2024 16:42-0400Diastolic blood mqweyeti93 mm[Hg][facility]06-21-2024 16:42-0400Heart rate90 /[facility] 05-15-2024 16:42-0400Respiratory rate18 /[facility] 05-15-2024 16:42-1269NtG1% (BldA) [Mass fraction]99 %[facility]06-21-2024 16:42-0400Systolic blood fmpthozr330 mm[Hg][facility] Encounters Encounter DateEncounter TypeCare ProviderFacilityStart: 09-29-2025 End: 48-17-1070tpypdzlhzsSutc Naderer MD Work Phone: -[facility] ClydeStart: 09-29-2025 End: 69-64-4779Fumlhvv encounter procedureKevin Pearl MD-[facility] [place] Work Phone: Start: 07-14-2025 End: 11-58-1039hcwcuqsmkkSwyy Naderer MD Work Phone: [facility] Work Phone: Start: 07-14-2025 End: 25-67-1147Felguta encounter procedureChristopher Jabari High DO-[facility] [place] Work Phone: Start: 03-01-2025 End: 77-24-0885Xrogza Jaguar Pearl MD Work Phone: NOEU CWM FMStart: 03-01-2025 End: 30-07-1815Wavgbz Jaguar Pearl MD Work Phone: NOET CWM FMStart: 03-01-2025 End: 53-10-1287Ckoniv outpatient visit 25 minutesKevin Pearl MD Work Phone: [facility] CWM FMComment on above:Migraine without aura and without status migrainosus, not intractable (CMS/HCC) (Primary Dx); Autonomic dysfunction; Dysfunctional uterine bleedingStart: 03-01-2025 End: 44-26-4198dajjowfxicWYKB NADERERNot AvailableStart: 02-11-2025 End: 09-48-7312Xrrkwadlu Result EncounterKevin Pearl MD Work Phone: NOWZ External Department UnsolicitedStart: 02-11-2025 End: 99-87-0776Mypmgeodd Result EncounterKevin Pearl MD Work Phone: NOKX External Department UnsolicitedStart: 01-27-2025 End: 92-87-8004Drwqcqkbo Result EncounterKevin Pearl MD Work Phone: NOYB External Department UnsolicitedStart: 01-27-2025 End: 90-51-7748Ifirnyird Result Nikos Pearl MD Work Phone: NOBF External Department UnsolicitedStart: 01-26-2025 End: 30-89-6711Srjaqs Jaguar Pearl MD Work Phone: [facility] CWM FMStart: 01-26-2025 End: 08-33-1031Ynlnnm Jaguar Pearl MD Work Phone: [facility] CWM FMStart: 01-26-2025 End: 18-27-9406uyxxcyrwjrUEZK NADERERNot AvailableStart: 01-26-2025 End: 83-69-7060Ccmffa outpatient visit 25 minutesKevin Pearl MD Work Phone: noms CW FMComment on above:Autonomic dysfunction (Primary Dx); Sinus headache; Chronic rhinosinusitis; Fatigue, unspecified type; Annual physical examStart: 01-26-2025 End: 67-32-1979Yqmxzdo encounter procedureKevin Pearl MD Work Phone: noms HealthcareStart: 08-30-2024 End: 10-33-0112Icuzkumnx Result EncounterKevin Pearl MD Work Phone: noms External Department UnsolicitedStart: 08-30-2024 End: 41-92-7040Qrqnutvat Result EncounterKevin Pearl MD Work Phone: noms External Department UnsolicitedStart: 08-26-2024 End: 12-07-4388wpphekrstfJWGK NADERERNot AvailableStart: 05-26-2024 End: 89-92-7641mxopkgmnddJOHH NADERERNot AvailableStart: 05-15-2024 End: 29-20-4959lnetxqkynzSrcqmnisrAvita Health [facility] Work Phone: Start: 05-15-2024 End: 53-79-7325Qpdrzat encounter procedureSt[facility] [place] Work Phone: Start: 04-16-2024 End: 83-27-0097qehzbecubuLWFQ NADERERNot AvailableStart: 38-14-4419Bhynscynv for routine child health examination without abnormal findingsDR KEVIN Vicente [facility] HospitalStart: 03-01-2022 End: 30-11-6562hkgdmbqgszCF KEIVN [place] NADERERFacility:Q8Urnao: 03-01-2022 End: 52-87-6434Qmopqoapo for routine child health examination without abnormal findingsDR KEVIN [place] NADERERFacility:H1 Procedures DateProcedureProcedure DetailPerforming ClinicianStart: 45-86-8829HGV CBC WITH AUTO DIFFKevin Pearl MD Work Phone: Start: 76-84-4445CTIF SCREEN*Kevin Pearl MD Work Phone: Start: 57-71-4694LAJ CBC WITH AUTO DIFFMarc Dae GONGORA Work Phone: Start: 65-49-4380KXLUG IRON AND TIBCMarc Dae GONGORA Work Phone: Start: 41-55-4730YY Ribs - bilateral GE 3 Views and Chest PAMarc Dae GONGORA Work Phone: Plan of Treatment DateCare ActivityDetailAuthorStart: 49-92-7650ZQNFL-19 Vaccine ( season)COVID-19 Vaccine ( season)[facility] HealthcareStart: 07-26-2025 Influenza vaccinationNOMS HealthcareStart: 05-31-2025 End: 82-73-0744Ymjqtpp encounter duxjrggxu63/07/2025 2:00 PM EDT Office Visit [facility] [address] [place] [address] Kevin Pearl MD [address] [place] [address] [facility] CW FMStart: 03-01-2025 End: 16-66-6433Gohuirn encounter procedureNOMS CWM FMComment on above:Arrived Start: 01-26-2025 End: 24-51-2563Xygot metabolic 1998 panel - Serum or PlasmaBasic metabolic panel Lab Routine Annual physical exam Expected: 01/26/2025 (Approximate), Expires: 01/26/2026[facility] Work Phone: Comment on above:Expected: 01/26/2025 (Approximate), Expires: 01/26/2026Start: 01-26-2025 End: 35-42-2985MLZ W Auto Differential panel - BloodCBC and differential Lab Routine Annual physical exam Expected: 01/26/2025 (Approximate), Expires: 0 01/26/2026NOMS HealthcareComment on above:Expected: 01/26/2025 (Approximate), Expires: 01/26/2026Start: 01-26-2025 End: 30-29-0146Dpkipsbgj (Vitamin B12) [Mass/volume] in Serum or PlasmaVitamin B12 Lab Routine Fatigue, unspecified type Expected: 01/26/2025 (Approximate), Expires: 01/26/2026NOMS HealthcareComment on above:Expected: 01/26/2025 (Approximate), Expires: 01/26/2026Start: 01-26-2025 End: 10-17-9946Bnrsgdiv [Mass/volume] in Serum or PlasmaFerritin Lab Routine Fatigue, unspecified type Expected: 01/26/2025 (Approximate), Expires: 01/27/20NOOH HealthcareComment on above:Expected: 01/26/2025 (Approximate), Expires: 01/26/2026Start: 01-26-2025 End: 74-37-3412Xbquxad function 2000 panel - Serum or PlasmaHepatic function panel Lab Routine Annual physical exam Expected: 01/26/2025 (Approximate), Expires: 01/26/2026NOOH HealthcareComment on above:Expected: 01/26/2025 (Approximate), Expires: 01/26/2026Start: 01-26-2025 End: 46-70-8674Fypq and Iron binding capacity panel - Serum or PlasmaIron and TIBC Lab Routine Fatigue, unspecified type Expected: 01/26/2025 (Approximate), Expires: 01/26/2026NOOH HealthcareComment on above:Expected: 01/26/2025 (Approximate), Expires: 01/26/2026Start: 01-26-2025 End: 25-49-8292Gtnmnimtpxn [Units/volume] in Serum or PlasmaTSH Lab Routine Autonomic dysfunction Fatigue, unspecified type Expected: 01/26/2025 (Approximate),Expires: 01/26/2026NOMS HealthcareComment on above:Expected: 01/26/2025 (Approximate), Expires: 01/26/2026Start: 01-26-2025 End: 79-12-5995Cbexaoxis (T4) free [Mass/volume] in Serum or PlasmaT4, free Lab Routine Fatigue, unspecified type Expected: 01/26/2025 (Approximate), Expires: 01/26/2026NOOH HealthcareComment on above:Expected: 01/26/2025 (Approximate), Expires: 01/26/2026Start: 13-14-1006Phiuzmynp vaccinationInfluenza Vaccine (#1) [facility] HealthcareStart: 66-78-5119Owmwkvmsz B Vaccines (1 of 3 - 19+ 3-dose series)Hepatitis B Vaccines (1 of 3 - 19+ 3-dose series)[facility] HealthcareStart: 82-76-0669Oiwlwnwoobfao B Vaccine (1 of 2 - Standard)Meningococcal B Vaccine (1 of 2 - Standard)NOMS HealthcareStart: 68-72-1731QDF Vaccines (1 - 3-dose series) HPV Vaccines (1 - 3-dose series)[facility]S HealthcareStart: 09-39-2347Bxmaerl of varicella vaccinationVaricella Vaccines (1 of 2 - 13+ 2-dose series)[facility]S HealthcareStart: 46-45-0736CFmP/Tdap/Td Vaccines (1 - Tdap)DTaP/Tdap/Td Vaccines (1 - Tdap)[facility] HealthcareStart: 67-48-5844UJL Vaccines (1 of 1 - Standard series)MMR Vaccines (1 of 1 - Standard series)[facility] HealthcareFluoroscopy of upper gastrointestinal tractSacred Heart Hospital Payers DatePayer CategoryPayerPolicy [id number] [facility] [id number] InsuranceMEDICAL MUTUAL [id number] 2..[id number] 2..[id number] 2..[id number] 2..[id number] ..[id number] [id number] [id number] Social History DateTypeDetailFacilityTobacco smoking status NHISUnknown if ever smokedKindred Hospital Lima Work Phone: Start: 86-77-0321Okc Assigned At BirthTriHealth [facility]hes[facility] North Hospitaltart: 04-16-2024 End: 74-27-9473Gkstidv smoking status NHISNever smoked tobaccoNOMS Healthcare Start: 16-61-8084Iwdtfzb use and exposureSmokeless tobacco non-userNOMS HealthcareStart: 08-25-2024 End: 27-45-1036Nsdysra of Social functionNOMS HealthcareStart: 08-25-2024 End: 06-76-8030I7908 Health LiteracyNOMS HealthcareStart: 24-45-8648Buv often do you need to have someone help you when you read instructions, pamphlets, or other written material from your doctor or pharmacy [SILS]NeverNOMS HealthcareDo you belong to any clubs or organizations such as mormon groups, unions, fraCanal do Credito or athletic groups, or school groups?YesNOMS HealthcareAre [...] months, were you homeless or living in skilled nursing [including now]?NoNOMS HealthcareStart: 04-02-2024 Gender identityIdentifies as female gender (finding)[facility] HealthcareStart: 17-16-5655Volfeg orientationHeterosexual (finding)NOMS HealthcareTobacco smoking status NHISUnknown if ever smokedKindred Hospital [facility] Work Phone: SexFemale (finding)[facility] Evaluation note 07-14-2025 Note Date & ZyleYfvhFjgrjfnr43-60-6934 Evaluation note* Diagnosis Onset Date Resolution Status Admit Date Chronic migraine without aura or status migrainosus acuteAugust 2024 1:45pmEpstein Sarmiento virus infectionacuteAugust 2024 1:45pmChronic fatigueacuteNovember 2024 8:38amChronic migraine without aura or status migrainosusacuteNovember 2024 8:38amEarly satietyacuteNovember 2024 8:38amEpstein Sarmiento virus infectionacuteNov2024 8:38am [facility] Work Phone: History of Present illness Narrative 03-01-2025 Note Date & LrivYjhoRabsdatx42-45-9277 History of Present illness Narrative* Kevin Pearl [...] to fioricet. Try maxalt. Relevant Medications rizatriptan EQUIPMENT SUPERINTENDENT (Maxalt-EQUIPMENT SUPERINTENDENT) 5 MG disintegrating tablet Dysfunctional uterine bleeding Irregular periods and start OCP. Relevant Medications norethindrone-ethinyl estradiol-iron (Microgestin FE 1.5/30) 1.5-30 MG-MCG tablet documented in this encounterNOMS Healthcare History of Present illness Narrative 01-26-2025 Note Date & GrtoMvvzZgnoftid47-26-8359 History of Present illness Narrative* Kevin Pearl [...] likely causing PHAM. Start flonase. Relevant Medications yzquvwfikv-ryppkeyiwxmzc-ojwlycva 50-325-40 MG tablet Other Visit Diagnoses Annual physical exam Relevant Orders Basic metabolic panel CBC and differential Hepatic function panel [facility] Evaluation note Note Date & TypeNoteFacilityEvaluation note* Diagnosis Onset Date Resolution Status Bee sting reaction acute [facility] Work Phone: Evaluation note Note Date & TypeNoteFacilityEvaluation note* Diagnosis Bee sting reaction, accidental or unintentional, subsequent encounter- Primary Acute pain of left knee Autonomic dysfunction- Primary Sinus headache Headache Chronic rhinosinusitis Unspecified sinusitis (chronic) Fatigue, unspecified type Annual physical exam Routine general medical examination at a health care facility documented in this encounter [facility] Evaluation note Note Date & [...] female genital tract documented in this encounter [facility] Evaluation note Note Date & TypeNoteFacilityEvaluation note* Diagnosis Onset Date Resolution Status Admit Date Chronic migraine without aura or status migrainosus acuteAugust 2024 1:45pmEpstein Sarmiento virus infectionacuteAugus2024 1:45pm [facility] Work Phone: Reason for referral (narrative) Note Date & TypeNoteFacilityReason for referral (narrative)No reason for referral information availableKindred Hospital [facility]ima Work Phone: Summary Purpose Family History No [...] or status migrainosus July 14, 2025 1:45pm Theerse Sarmiento virus infection June 1:45pm Chronic fatigue September 29, 2025 8 :38am Chronic migraine without aura or status migrainosus September 29, 2025 8:38am Early satiety September 29, 2025 8 :38am Therese Sarmiento virus infection September 8:38am Additional Source Comments INFORMATION SOURCE (unrecogn ized section and content) DATE CREATED AUTHOR 03/07/2022 [facility] DATE CREATED AUTHOR AUTHOR'S YESIKA PINEDA 03/02/2025 [facility] EPIC Care Teams (unrecognized sec [...] Kevin Pearl MD [address] [place] [address] PCP - GeneralFamily Medicine04/16/24 Kevin Pearl MD [address] [place] [address] PCP - [facility] Ldimpdbbfx32/1/ Kevin Pearl MD [address] [place] [address] PCP - [place] Wxvnyifppl27/1/24Team MemberRelationshipSpecialtyStart DateEnd Date Kevin Pearl MD [address] [place] [address] PCP - GeneralFamily Medicine04/16/24 Kevin Pearl MD [address] [place] [address] PCP - [facility] [place] Frixqthibb01/1/ Kevin Pearl MD [address] [place] [address] PCP - [place] Tcfvhzmwcq67/1/24Te MemberRelationshipSpecialtyStart DateEnd Date Kevin Pearl MD [address] [place] [address] PCP - [facility]04/16/24 Kevin Pearl MD [address] [place] [address] PCP - [facility] [place] Lpanzoyxyi54/1/ Kevin Pearl MD [address] [place] [address] PCP - [place] Jcfhpcbtjh48/1/24Te MemberRelationshipSpecialtyStart DateEnd Date Kevin Pearl MD [address] [place] [address] PCP - [facility]04/16/24 Kevin Pearl MD [address] [place] [address] PCP - [facility] [place] Lymvpekknj69/1/ Kevin Pearl MD [address] [place] [address] PCP - [place] Npwuvkpgwg70/1/24Te MemberRelationshipSpecialtyStart DateEnd Date Kevin Pearl MD [address] [place] [address] PCP - [facility]04/16/24 Kevin Pealr MD [address] [place] [address] PCP - [facility] [place] Iuarnxmvqz96/1/ Kevin Pearl MD [address] [place] [address] PCP - [place] Mjsltnhrot00/1/24 Team Status: Active Member Role Status Dates Kevin Pearl MD Primary Care Provider Active Team Status: Inactive Member Role Status Dates Aftab Barboza DO Attending Provider Active Start: July 14, 2025 End: July 14, 2025MarAlda Rae Care ProviderActiveStart: July 14, 2025 End: July 14, 2025Team MemberRelationshipSpecialtyStart DateEnd Date Kevin Pearl MD PCP - [facility]04/16/24 Kevin Pearl MD [address] [place] [address] [facility] Evaqpuxnec85/1/ Kevin Pearl MD [address] [place] [address] PCP - [place] Jrzrpvahyz22/1/244 Team Status: Active Member Role/Relationship Status Dates Kevin Pearl MD Primary Care Provider Active Team Status: Inactive Member Role/Relationship Status Dates Aftab Barboza DO Attending Provider Active Start: July 14, 2025 End: July 14, 2025[facility] MorrisAlda Rae Care ProviderActiveStart: July 14, 2025 End: [...] BE BASED ON THE PRIMARY CLINICAL RECORDS. [facility] [employer] [facility]. provides no warranty or guarantee of the accuracy or completeness of information in this document.
== END 2025-10-19 09:48 | disposition home or self-care (01) ==
LOC: FL 09:47
PROVIDERS: PCP Family Medicine; Visit Provider Family Medicine
DX: R68.81 Early satiety (principal)
CPT/HCPCS: 74246; 76120

== ENCOUNTER 2025-10-25 16:08 | Outpatient (OUT) | payer BC, OTHER, SELFPAY ==
--- OUTSIDE RECORDS SUMMARY | 2025-10-20 09:34 | XMS_ITS | Continuity of Care Document ---
Author Organization [facility] Address [address] [place] [address] Phone Care Team Providers Care Molding Technician Name Role Phone Kevin Sherwood MD Primary Care Provider [phone] Kevin Sherwood MD Attending Provider Kevin Sherwood MD Referring Provider Adolfo Skelton MD Attending Provider [phone] Care Teams Patient Care Team Team Status: Active Member Role/Relationship Status Dates Kevin Sherwood MD Primary Care Provider Active Visit Care Team Team Status: Inactive Member Role/Relationship Status Dates Kevin Sherwood MD Primary Care Provider Active S tart: September 29, 2025 End: September 29, 2025Obed Patrick ProviderActiveStart: September 29, 2025 End: September 29, 2025 Patient Care Team Team Status: Inactive Member Role/Relationship Status Dates Kevin Sherwood MD Primary Care Provider Active S tart: October 20, 2025 End: October 20, 2025Sean Patrick ProviderActiveStart: October 20, 2025 End: October 20, 2025MichaeObed Morales ProviderActiveStart: October 20, 2025 End: October 20, 2025 Chief Complaint and Reason for Visit Chief Complaint Admit Date Headaches September 29, 2025 8 :38am Ref: Dr. Sherwood- [place]/EBV September 1:41pm Reason for Visit Admit Date Chronic fatigue September 29, 2025 8 :38am Chronic migraine without aura or status migrainosus September 29, 2025 8:38am Early satiety September 29, 2025 8 :38am Therese Sarmiento virus infection September 8:38am Chronic fatigue October 20, 2025 1:41pm Chronic migraine without aura or status migrainosus October 20, 2025 1:41pm Irregular periods/menstrual cycles Novem 2024 1:41pm Allergies, Adverse Reactions, Alerts Allergen Type Severity Reaction Last Updated Verified Status No Known Allergies Allergy Unknown October 20, 2025 1:52pmYesActive Social History Smoking Status Status Start Date End Date Date of Observa tion Never smoked tobacco (finding) October 20, 2025 1:50pm Observation Status Observation Response Date of Response Legal Sex Female (finding) [facility] Problems Active Problems Problem Diagnosis/Recorded Date Onset Date Stat us Autonomic dysfunction September 29, 2025 9:20am Unknow n Active Irregular periods/menstrual cycles October 20, 2025 2:30pm Unknown Active Chronic fatigue September 29, 2025 9:32am Unknown Active Early satiety September 29, 2025 9:33am Unknown A ctive Chronic migraine without aur a or status migrainosus July 14, 2025 1:09pm Unknown Active Therese Sarmiento virus infection July 14, 2025 1:09pm Unknown Active Inactive/Resolved Problems Problem Diagnosis/Recorded Date Onset Date Stat us Bee sting reaction May 15, 2024 4:31pm Unknown Resolved Medications Medication Status Dose Units Route Directions Qty Days Refills S tart Date Stop Date End Date Reason(s) Instructions Adherence [facility] (No Known Home Meds) Active October 20, 2025 12:00amNabumetone 500 mg tabletDiscontinuedMGPOJune 2023 11:00pmSeptember 29, 2025 8:57amCephalexin 500 mg ktaxcmqYbwehbdhqtdl367SW POTwice pmfja1763Kznv 20th, 2024 11:00pmSeptember 29, 2025 8:57amAtogepant (Qulipta) 60 mg lvpkmcMzquqovfcrpt57QRVRRosnp057Geazff 2024 11:00pm September 29, 2025 8:57am Vital Signs Vital Reading Result Reference Range Collection Date/Time Height 49 [in_i] September 29, 2025 8:56amBody Jfamqoqqpxd10.3 [degF]97.6-99.0September 29, 2025 8:56amHeart Rate89 /qiw43-626PwyoaikdSeptember 29, 2025 8:56amRespiratory rate20 /min 12-24September 29, 2025 8:56amOxygen saturation by Pulse hrhcwphe27 %95-100 September 29, 2025 8:56amBP Xixeifgm378 mm[Hg]100-140September 29, 2025 8:56amBP Mlqjievvk25 mm[Hg]60-100September 29, 2025 8:38lhKdxdzy15 [in_i]October 20, 2025 1:43ugWvmgfq34.35 kgOctober 20, 2025 1:53pmBody Qvwtttwvlgo94.6 [degF] 97.6-99.0October 20, 2025 1:53pmHeart Rate87 /eaa60-885RbyoqjuaOctober 20, 2025 1:53pmBP Kioifdwf440 mm[Hg]100-140October 20, 2025 1:53pmBP Pmavfrvmg01 mm[Hg]60-100October 20, 2025 1:53pmBMI (Body Mass Index)20.2 kg/i6XazbtphtOctober 20, 2025 1:53pm Advance Directives Advance Directive Response Recorded Date/ Time Advance Directives No September 4:44pm Insurance Providers Guarantor Barbie Jen Address [address] [place], [place] [address]Contact Info.Home Phone: Payer Group Member ID Coverage Type Subscriber Relationship to Subscriber Effective Date Expiration Date Merged With [facility] [id number] C Jen Id: [id number] [address] [place], [place] [address] Home Phone: Anthem BON/BS [id number] Jen Id: [id number] [address] [place] [id number] Home Phone: Email: [email or web address] Encounters Encounter Location(s) Arrival/Admit Date Discharge/Departure Date Discharge/Departure Disposition Provider(s) Departed Physician/ Provider Office Visit -[facility] [place] September 29, 2025 8:38am September 29, 2025 9:42am Discharged to home care or self care (routine discharge) Kevin Sherwood MD Departed Physician/ Provider Office Visit -[facility] Infect Dis October 20, 2025 1:41pm October 20, 2025 2:32pm Discharged to home care or self care (routine discharge) Adolfo Skelton MD Recent Diagnosis Onset Date Admit Date Chronic fatigue Unknown September 29 8:38am Chronic migraine without aur a or status migrainosus Unknown September 29, 2025 8:38am Early satiety Unknown September 29 8:38am Therese Sarmiento virus infection Unknown Sep 8:38am Chronic fatigue Unknown October 20, 2 025 1:41pm Chronic migraine without aur a or status migrainosus Unknown October 20, 2025 1:41pm Irregular periods/menstrual cycles Unknown October 20, 2025 1:41pm Assessments Diagnosis Onset Date Resolution Status Admit Date Chronic fatigue acuteSeptember 29, 2025 8:38amChronic migraine without aura or status migrainosusacuteSeptember 29, 2025 8:38amEarly satietyacuteSeptember 29, 2025 8:38amEpstein Sarmiento virus infectionacuteSeptember 29, 2025 8:38amChronic fatigue acuteNovember 2024 1:41pmChronic migraine without aura or status migrainosusacuteNov2024 1:41pmIrregular periods/menstrual cycles acuteNov2024 1:41pm Plan of Treatment Author [facility]wood [facility] HospitalAuthoredNov2024 9:48amContinues to have daily migraine not responding to typical migraine treatments. Check MRI brain. Follow with neurology and may benefit from botox. Continued fatigue and no energy. Symptoms started after EBV infection and refer to ID. Continued fatigue and no energy. Symptoms started after EBV infection and refer to ID. Poor appetite and weight loss. Check UGI. May need GI evaluation. Future Tests Future scheduled test information is unavailable Pending Tests Test Name Ordered Date Scheduled Date MR head/brain wo/w con September 29, 2025 9:48am Comprehensive Metabolic PanelNov2024 2:15pmEstradiolNov2024 2:16pmLuteinizing HormoneNov2024 2:15pm Future Visits Future appointment information is unavailable Future Procedures Procedure Name Ordered Date Scheduled Date FL esophagus & ugi September 29, 2025 9:33am Complete Blood Count Auto DiffNovember 2024 2:15pmC-Reactive Protein October 20, 2025 2:15pmErythrocyte Sedimentation RateNovember 2024 2:15pmIron and TIBC ProfileNovember 2024 2:16pmFollicle Stimulating HormoneNovember 2024 2:15pmLyme, Total Ab with ReflexNovember 2024 2:15pmProlactinNovember 2024 2:16pmThyroid Stim Hormone w/RflxNovember 2024 2:15pm Future Medications Future medication information is unavailable Patient Instructions Patient instructions are unavailable
--- OUTSIDE RECORDS SUMMARY | 2025-10-25 16:14 | XMS_ITS | Clinical Summary ---
Author Organization [facility] Address [address] [place] [address] Care Team Providers Care Senior Qa Analyst Name Role Phone Kevin Sherwood MD Primary Care Provider [phone] Kevin Sherwood MD Unavailable Allergies No known [...] mg) by mouth Daily 30 tablet 5Active vvebxumtsj-ehfkxxgokdmdu-ghtpzklw 50-325-40 MG tablet Indications:Chronic rhinosinusitisTake 1 tablet by mouth 4 (four) times a day as needed for headaches 30 tablet 5Active norethindrone-ethinyl estradiol-iron (Microgestin FE 1.5/30) 1.5-30 MG-MCG tablet Indications:Dysfunctional uterine bleedingTake 1 tablet by mouth Daily 84 tablet 5Active rizatriptan TRANSACTION PROCESSOR (Maxalt-TRANSACTION PROCESSOR) 5 MG disintegrating tablet Indications:Migraine without aura [...] 5Active Active Problems ProblemNoted DateDiagnosed DateDysfunctional uterine eczlomrh87/07/2025 Assessment & Plan (03/01/2025 12:22 PM EDT): Irregular periods and start OCP. Autonomic rhaexbjocrw34/04/2025 Assessment & Plan (03/01/2025 12:22 PM EDT): Symptoms slightly better and continue florinef. Continue with increased water and salt intake. Assessment & Plan (01/26/2025 10:34 AM EST): Symptoms suggestive of NCS. Add florinef. Increased salt and water intake. Migraine without aura and without status migrainosus, not odbpaijnhqx34/04/2025 Assessment & Plan (03/01/2025 12:24 PM EDT): PHAM worse and not responding to fioricet. Try maxalt. Assessment & Plan (01/26/2025 10:35 AM EST): PHAM likely related to congestion and sinus pressure. Start fioricet PRN. Yyprdip6301/26/2025 Assessment & Plan (01/26/2025 10:34 AM EST): Check labs. Chronic ogxdbtcgqwiome93/04/2025 Assessment & Plan (01/26/2025 10:35 AM EST): Evidence of congestion likely causing PHAM. Start flonase. Bee sting ubjmxqbi96/02/2024 Assessment & Plan (05/26/2024 4:29 PM EDT): Recent sting and developed reaction. Improved and monitor. Script for epipen to patient. Chronic sxqkivmkzkaj03/22/2024 Resolved Problems ProblemNoted DateDiagnosed DateResolved DateRib pain/02/2025 [...] no improvement will need MRI. Acute sinusitis, hcqfgmdcfak50Epistaxis Generalized anxiety vzbzrabf85 Social History Tobacco UseTypesPacks/DayYears UsedDateSmoking Tobacco: NeverSmokeless [...] relatives?Twice a week08/25/2024How often do you attend zoroastrian or quaker services?More than 4 times per year08/25/2024o you belong to any clubs or organizations such as zoroastrian groups, unions, fraternal or athletic groups, or school groups?Yes08/25/2024How often do you attend meetings of the clubs or organizations you belong to?More than 4 times per year08/25/2024 Are you , , , , never , or living with a partner?Never ymcjhjq4408/25/2024UDIT-CAnswerDate RecordedQ1: How often do you have a [...] like food, housing, medical care, and heating?[facility] /01/2024[facility] [place] [facility] - Occupational Stress QuestionnaireAnswerDate [...] before you got the money to buymore.Patient ojpwfhgd44/01/2024 Within the past 12 months, the food you bought just didn't last and you didn't have money to get more.Patient xyokcxsh18/01/2024RAPARE - TransportationAnswer Date RecordedIn the past 12 months, has lack of transportation kept you from medical appointments or from getting medications?Patient davnajef87/01/2024In the past 12 months, has lack of transportation kept you from meetings, work, or from getting things needed for daily living?Patient gunfjjis79/01/2024Housing Stability Vital SignAnswerDate RecordedIn the last 12 months, was there a time when you were not able to pay the mortgage or rent on time?Patient declined 08/25/2024In the past 12 months, how many times have you moved where you were living?t any time in the past 12 months, were you homeless or living in a alf (including now)?No08/25/2024CommentsUnknownSex and Gender InformationValueDate RecordedSex Assigned at IgvrxItbrfy86/09/2024 4:14 PM EDT Legal BasXoedbt01/15/2023 9:17 AM EDTGender NjyhbdriOxsrrk09/09/2024 4:14 PM EDT Sexual NhncjykndjpRddhvipt40/09/2024 4:14 PM EDT Last Filed Vital Signs Vital SignReadingTime TakenCommentsBlood Keqidijn171/5804 11:37 AM EDT Lwfqp960003/01/2025 11:37 AM MPFXhmmuhscwqh45.4 ??C (97.5 ??F)03/01/2025 11:37 AM EDTRespiratory Jhzc511103/01/2025 11:37 AM EDTOxygen Yfgnrxhrou11%03/01/2025 11:37 AM EDTInhaled Oxygen Concentration--Heaoen99.2 kg (104 lb)03/01/2025 11:37 AM KIPQewksn698.9 cm (4' 11 )03/01/2025 11:37 AM EDTBody [...] GeneralFamily Medicine04/16/24 Kevin Sherwood MD [address] [place] [address] PCP - Medical Rea Oehcdrmcyj39/1/
--- OUTSIDE RECORDS SUMMARY | 2025-10-25 16:14 | XMS_ITS | Clinical Summary ---
[facility] Address [id number] [address] [place] [address] Care Team Providers Care Criminal Investigative Agent Name Role Phone Kevin Sherwood MD Primary Care Provider [phone] Allergies No known active allergies Medications No known medications Social History Tobacco UseTypesPacks/DayYears UsedDateSmoking Tobacco: NeverSmokeless Tobacco: NeverChildcareAnswerDate NlkbjpxpOhxxcykqzGeilmlq33/12/2019EmploymentAnswerDate BmllpqsiAgavpgrkfdYtrnyhb52/12/2019Purpose - LifeAnswerDate RecordedPurpose and direction in zdcxRajhqan96/11/2021CommentsNoSex and Gender Information ValueDate RecordedSex Assigned at BirthNot on fileLegal NzvPoncna15/06/2015 12:05 PM EDTGender IdentityNot on fileSexual OrientationNot on file Last Filed Vital Signs Vital SignReadingTime TakenCommentsBlood Hkyvcbqb810/80011/29/2020 5:01 PM EST Ornng77822/05/2021 5:01 PM AEDPbwcyjgmrnf63.6 ??C (97.8 ??F)01/13/2020 12:41 PM ESTRespiratory Qhhx8933 3:30 PM ESTOxygen Mbqglmcttr904%01/13/2020 3:30 PM ESTInhaled Oxygen Concentration--Ttnbzz42.5 kg (98 lb)11/29/2020 5:01 PM EST Fsywka695.9 cm (4' 11 )11/29/2020 5:01 PM ESTBody Mass Index19.7911/29/2020 5:01 PM EST Plan of Treatment Health MaintenanceDue DateLast DoneCommentsDepression Tjtuxywbd94/23/2017Tobacco Uttrtjxcl43/23/2017Adult BMI Fvqwudlez29/23/2023DTaP,Tdap and Td Vaccines (1 - Tdap)02/15/2024Influenza Ppjcelh4607/26/2025 Medical Devices Not on file Insurance Care Teams Team MemberRelationshipSpecialtyStart DateEnd Date Kevin Sherwood MD PCP - GeneralFamily Ohcneigc22/29/20
[2025-10-25 16:29] LABS: Hematocrit 35.3 % (36.0-48.0); Hemoglobin 12.1 g/dL (12.0-16.0); Immature Granulocytes Abs Auto 0.02 10^3/uL (0.00-0.03); Immature Granulocytes Pct Auto 0.2 % (0.0-0.5); Lymphocytes Absolute Auto 0.3 10^3/uL (1.2-3.8); Mean Corpuscular HGB Conc 34.3 g/dL (29.9-35.2); Mean Corpuscular Hemoglobin 30.9 pg (26.7-34.0); Mean Corpuscular Volume 90.1 fL (81.0-99.0); Platelet Count 190 10^3/uL (150-450); Red Blood Count 3.92 10^6/uL (4.20-5.40); White Blood Count 10.2 10^3/uL (4.0-11.0)
--- OUTSIDE RECORDS SUMMARY | 2025-10-25 16:31 | XMS_ITS | CCD ---
Author Organization [facility] Care Team Providers Care Medical Receptionist Biller Name Role Phone DR KEVIN PEARL Attending [...] (7 sources)Barbiturate, Central Nervous System Stimulant, MethylxanthineStart: 01-90-4337wuao 1 tablet by mouth four times daily as needed for headache hhjupojitw-msrvwdnkzzklv-zjyknanp 50-325-40 MG tablet Indications: Chronic rhinosinusitis Take 1 tablet by mouth 4 (four) times a day as needed for headaches 30 tablet 1 01/26/2025 Omxzrcepz040100 0.3 ml EPINEPHrine 1 mg/ml auto-injector (7 sources)alpha-Adrenergic Agonist, beta-Adrenergic Agonist, Catecholamine Start: 51-39-8499LIWSLKSgagg (Epipen) 0.3 MG/0.3ML injection syringe Indications: Bee sting reaction, accidental or unintentional, subsequent encounter Inject 0.3 mL (0.3 mg) as directed 1 (one) time for 1 dose use as directed for allergic reaction and then call 911 1 each 2 05/26/2024 Active Ethinyl Estradiol / Ferrous fumarate / Norethindrone (2 sources)EstrogenStart: 06-87-4965kkstompvdnaci-ethinyl estradiol-iron (Microgestin FE 1.5/30) 1.5-30 MG-MCG tablet Indications: Dysfunctional uterine bleeding Take 1 tablet by mouth Daily 84 tablet 3 03/01/2025 Active fludrocortisone acetate 0.1 mg oral tablet (7 sources)Start: 26-67-7194ipro 1 tablet by mouth once dailyfludrocortisone (Florinef) 0.1 MG tablet Indications: Autonomic dysfunction Take 1 tablet (0.1 mg) by mouth Daily 30 tablet 3 01/26/2025 ActivepredniSONE 10 mg oral tablet (3 sources)Start: 08-26-2024 End: 58-59-5167uzcz 6 tablets by mouth once daily, then [...] sources)Serotonin-1b and Serotonin-1d Receptor AgonistStart: 03-01-2025 rizatriptan SPANISH SPEAKING NANNY (Maxalt-SPANISH SPEAKING NANNY) 5 MG disintegrating tablet Indications: Migraine without aura and without status migrainosus, not intractable (CMS/HCC) Take 1 tablet (5 mg) by mouth 1 (one) time if needed for migraine May repeat in 2 hours if unresolved. Do not exceed 30 mg in 24 hours. 9 tablet 2 03/01/2025 Active Start: 35-92-2155azouwiwzouk SPANISH SPEAKING NANNY (Maxalt-SPANISH SPEAKING NANNY) 5 MG disintegrating tablet Indications: Migraine without aura and without status migrainosus, not intractable (CMS/HCC) Take 1 tablet (5 mg) by mouth 1 (one) time if needed for migraine May repeat in 2 hours if unresolved. Do not exceed 30 mg in 24 hours. 9 tablet 2 03/01/2025 Active Completed/Discontinued Medications MedicationDrug Class(es)DatesSig (Normalized)Sig (Original)Atogepant (2 sources)Start: 07-14-2025 End: 79-26-9270qbxr 1 tablet by mouth once dailyAtogepant (Qulipta) 60 mg tablet Discontinued 60 MG PO Daily July 13, 2025 11:00pm September 29, 2025 8:57amStart: 32-08-7476tcme 1 tablet by mouth once dailyAtogepant (Qulipta) 60 mg tablet Active 60 MG PO Daily July 14, 2025 12:00am Complies with drug therapycephalexin 500 mg oral capsule (3 sources)Cephalosporin AntibacterialStart: 05-15-2024 End: 34-91-3785kyqm 1 capsule by mouth twice dailyCephalexin 500 mg capsule Discontinued 500 MG PO Twice daily 14 7 0 May 14, 2024 11:00pm September 29, 2025 8:57amnabumetone 500 mg oral tablet (6 sources)Nonsteroidal Anti-inflammatory DrugStart: 53-57-9178Ucyjmkuska Active MG PO May 15, 2024 12:00amStart: 04-16-2024 End: 93-29-9691Vmnojcenoi 500 mg tablet Discontinued MG PO May 14, 2024 11:00pm September 29, 2025 8:57am Problems Active Problems Problem ClassificationProblemDateDocumented DateEpisodic/ChronicHeadache; including migraine (10 sources)Migraine without aura, not refractory ; Translations: [Migraine without aura, not intractable, without status migrainosus]Onset: 01-26-2025 26-13-3358PizvigvOsfkjzjs; including migraine (7 sources)Sinus headache; Translations: [Sinus headache]Onset: 01-26-2025 03-59-0319WfzmotflTbmerdf and fatigue (2 sources)Fatigue; Translations: [Chronic fatigue, unspecified]09-29-2025 ChronicOther female genital disorders (5 sources)Abnormal uterine bleeding; Translations: [Other specified abnormal uterine and vaginal bleeding]Onset: 699636-30-0626VcysvvlCghog gastrointestinal disorders (1 source)Other constipation; Translations: [OTHER CONSTIPATION]Onset: 32-08-7632YyvhizjeRddwd nervous system disorders (13 sources)Disorder of autonomic nervous system; Translations: [Disorder of the autonomic nervous system, unspecified]Onset: 197775-16-4036JzjhimzRlrvb upper respiratory infections (10 sources)Chronic sinusitis, unspecified; Translations: [Chronic rhinitis] Onset: 117487-23-5169FxqqkbcNzmcrcjhm by nonmedicinal substances (13 sources)Bee sting; Translations: [Toxic effect of venom of bees, accidental (unintentional), initial encounter]Onset: 244351-81-1190QqrcreinAwlieuca codes; unclassified (2 sources)Early satiety; Translations: [Early satiety]04-83-1921WyxgnoiwBgvbm infection (5 sources)Therese-Sarmiento virus disease; Translations: [Infectious mononucleosis, unspecified without complication]67-82-8531Zrmdiwiu Past or Other Problems Problem ClassificationProblemDateDocumented DateEpisodic/ChronicAnxiety disorders (9 sources)Generalized anxiety disorder; Translations: [Generalized anxiety disorder]Onset: 04-15-2024 Resolved: 400513-22-0443AzkkwmgRehphqb and fatigue (10 sources)Fatigue; Translations: [Other fatigue]Onset: EpisodicOther gastrointestinal disorders (9 sources)Chronic constipation; Translations: [Other constipation]Onset: 519324-11-2362MvdbshfrAkmye lower respiratory disease (9 sources)Rib pain; Translations: [Pleurodynia]Onset: 08-26-2024 Resolved: 363974-53-5235LqrklyjrSwrav non-traumatic joint disorders (9 sources)Pain in left knee; Translations: [Pain in joint, lower leg]Onset: 04-16-2024 Resolved: 266724-89-3677AsssjlipDeazw upper respiratory disease (9 sources)Bleeding from nose; Translations: [Epistaxis]Onset: 04-15-2024 Resolved: 566743-59-8862QwsmwbkbRohvt upper respiratory infections (9 sources)Acute sinusitis; Translations: [Acute sinusitis, unspecified]Onset: 04-15-2024 Resolved: 523523-13-3872Zqzbftya Results Test NameValueInterpretationReference RangeFacilityALL CBC WITH AUTO DIFFon 97-06-7761GHTUUGXHC ABSOLUTE BICV0EJEU HealthcareBasophils/100 WBC (Bld)0.6 %0.2 - 2.0 %NOMS HealthcareEosinophils/100 WBC (Bld)1.4 %0.9 - 7.0 %[facility] Erythrocyte distribution width (RBC) [Ratio]13.6 %11.0 - 15.0 %[facility] Hematocrit (Bld) [Volume fraction]37.3 %36.0 - 48.0 %[facility]Hemoglobin (Bld) [Mass/Vol]12.6 g/dL12.0 - 16.0 g/dLCox BransonIMMATURE GRANULOCYTES ABS AUTO0.01NONC HealthcareImmature granulocytes/100 WBC (Bld)0.1 %0.0 - 0.5 % [facility] HealthcareInterpretation and review of laboratory resultsAbnormalNONC HealthcareLYMPHOCYTES ABSOLUTE IIKB1CGDJ HealthcareLymphocytes/100 WBC (Bld)28.4 %20.5 - 60.0 %[facility] CenterH (RBC) [Entitic mass]30.4 pg26.7 - 34.0 pgJohn J. Pershing VA Medical CenterHC (RBC) [Mass/Vol]33.8 g/dL29.9 - 35.2 g/dLJohn J. Pershing VA Medical CenterV (RBC) [Entitic vol]90.1 fL81.0 - 99.0 fLCox BransonMONOCYTES ABSOLUTE AUTO0.7NOMS HealthcareMonocytes/100 WBC (Bld)10.6 %1.7 - 12.0 %NOM HealthcareNEUTROPHILS ABSOLUTE AUTO4.1NOMS HealthcareNeutrophils/100 WBC (Bld)58.9 %43.0 - 75.0 %[facility]OM[facility] HealthcarePlatelet mean volume (Bld) [Entitic vol]9 fLLow9.5 - 13.5 fLNOSaint Francis Medical CenterTBH EO #0.1NOMS HealthcareTB YUP932FKFJ [facility] RBC4.14LowNOMS [facility] HospitalTB WBC6.9NONC HealthcareCLINISYNCNCIMARRON MEMORIAL [facility] [place] [place] HealthcareMONO SCREEN*on 90-11-7821XLS MONONegativeNEGATIVENONC HealthcareCLINISYNCNCIMARRON MEMORIAL HOS[facility] [place] HealthcareALL CBC WITH AUTO DIFFon 00-98-6752MKSAQETRQ ABSOLUTE AUTO0.1NOMS Healthcare Basophils/100 WBC (Bld)0.8 %0.2 - 2.0 %[facility] HealthcareEosinophils/100 WBC (Bld) 3.4 %0.9 - 7.0 %NOMS HealthcareErythrocyte distribution width (RBC) [Ratio]12.9 %11.0 - 15.0 %[facility] HealthcareHematocrit (Bld) [Volume fraction]37.4 %36.0 - 48.0 %NOM HealthcareHemoglobin (Bld) [Mass/Vol]12.4 g/dL12.0 - 16.0 g/dLCox BransonIMMATURE GRANULOCYTES ABS AUTO0.01NOSaint Francis Medical CenterImmature granulocytes/100 WBC (Bld)0.2 %0.0 - 0.5 %NOM HealthcareInterpretation and review of laboratory resultsAbnormalNONC HealthcareLYMPHOCYTES ABSOLUTE AUTO1.6 NOMJefferson Memorial HospitalLymphocytes/100 WBC (Bld)25.7 %20.5 - 60.0 %[facility] CenterH (RBC) [Entitic mass]30 pg26.7 - 34.0 pgNOSSM Saint Mary's Health CenterHC (RBC) [Mass/Vol]33.2 g/dL29.9 - 35.2 g/dLJohn J. Pershing VA Medical CenterV (RBC) [Entitic vol]90.6 fL81.0 - 99.0 fL NOMS HealthcareMONOCYTES ABSOLUTE AUTO0.7NONC HealthcareMonocytes/100 WBC (Bld) 10.2 %1.7 - 12.0 %NOMS HealthcareNEUTROPHILS ABSOLUTE AUTO3.8NOMS Healthcare Neutrophils/100 WBC (Bld)59.7 %43.0 - 75.0 %NOMS HealthcarePlatelet mean volume (Bld) [Entitic vol]8.6 fLLow9.5 - 13.5 fLNOMS HealthcareTB EO #0.2NOMS HealthcareTB NDK559VWAE HealthcareTB RBC4.13LowNOMS [facility] HospitalTB WBC6.4NOHospital Sisters Health System St. Vincent HospitalMETRO IRON AND TIBCon 36-26-6407ZGI IRON96 ug/dL50.0 - 170.0 ug/dLCox BransonTB PERCENT IRON DVKQTCBLFU42.9 %NOMS HealthcareTB TOTAL IRON BINDING VQTEYYEW824 ug/dL250.0 - 450.0 ug/dLNOMercy Health Kings [facility] Hospital HealthcareXR Ribs - bilateral GE 3 Views and Chest PAon 23-43-0021MtcJeffers, [place] [address] XRay Report Signed Patient: CHRIS LI MR#: [id number] : 2005 Acct:[id number] Age/Sex: 19 / F ADM Date: 08/28/24 Loc: RAD Attending Dr: Kevin Pearl M.D. Ordering Physician: Kevin Pearl M.D. Date of Service: 08/28/24 Procedure(s): XR ribs BI min 4V w CXR1V Accession Number(s): [id number] cc: Kevin Pearl M.D. [address] [place] [address] Patient Name: CHRIS LI MRN: [id number] date: 2005 Sex: F Assigned Patient Location: [facility] Current Patient Location: Accession/Order Number: [id number] Exam Date: 08/28/2024 13:42 Report Date: 08/30/2024 [...] M.D. Signed By: 08/30/24815 DD/ 2 TD/TT: Fws Faculty Assistant:TBHRadiology, Radiologist, - 08/31/2024 [place] [address] XRay Report Signed Patient: CHRIS LI MR#: [id number] : 2005 Acct:[id number] Age/Sex: 19 / F ADM Date: 08/28/24 Loc: [facility] Attending Dr: Kevin Pearl M.D. Ordering Physician: Kevin Pearl M.D. Date of Service: 08/28/24 Procedure(s): XR ribs BI min 4V w CXR1V Accession Number(s): [id number] cc: Kevin Pearl M.D. [address] [place] [address] Patient Name: CHRIS LI MRN: [id number] date: 2005 Sex: F Assigned Patient Location: [facility] Current Patient Location: Accession/Order Number: [id number] Exam Date: 08/28/2024 13:42 Report Date: 08/30/2024 [...] M.D. Signed By: 08/30/24815 DD/ 2 TD/TT: Fws Faculty Assistant: [facility] Study observation (narrative)[facility] OrthobondXR Ribs - bilateral GE 3 Views and Chest PAOrdered By: Radiologist Radiology on 08-30-2024 [facility] Orthobond Work Phone: cbc AUTO DIFFon 38-85-3213EFFH #0.1 103/ulNormal 0.0-0.1The [facility] HospitalComment on above:Performed By: #### CBC #### [facility] [address] [place] [address] Dr. Jay StewartBasophils/100 WBC (Bld)0.6 %Normal0.2-2.0The [facility] Comment on above:Performed By: #### CBC #### [facility] [address] [place] [address] Dr. Jay Mac #0.1 103/ulNormal0.0-0.7The [facility] HospitalComment on above: Performed By: #### CBC #### [facility] [address] [place] [address] Dr. Jay Ambroseosinophils/100 WBC (Bld)0.6 %Critically low0.9-7.0The [facility] HospitalComment on above:Performed By: #### CBC #### [facility] [address] [address] [address] Jay Ambroserythrocyte distribution width (RBC) [Ratio]13.0 %Cxmtft22.0-15.0 The [facility] HospitalComment on above:Performed By: #### CBC #### [facility] [address] [place] [address] Dr. Jay StewartHematocrit (Bld) [Volume fraction]41.8 %Nzyszy89.0-48.0The [facility] HospitalComment on above:Performed By: #### CBC #### [facility] [address] [place] [address] Dr. Jay StewartHemoglobin (Bld) [Mass/Vol]13.9 g/dFNsbkdl18.0-16.0The [facility] HospitalComment on above:Performed By: #### CBC #### [facility] [address] [place] [address] Dr. Jay Dueñas #0.03 10e3/ulNormal0.00-0.03The [facility] HospitalComment on above:Performed By: #### CBC #### [facility] [address] [place] [address] Dr. Jay Dueñas %0.3 %Normal0.0-0.5The [facility] HospitalComment on above: Performed By: #### CBC #### [facility] [address] [place] [address] Dr. Jay Lawton #1.9 103/ulNormal1.2-3.8The [facility] HospitalComment on above:Performed By: #### CBC #### [facility] [address] [place] [address] Dr. Jay Warnerhocytes/100 WBC (Bld)18.0 %Critically low20.5-60.0The [facility] HospitalComment on above:Performed By: #### CBC #### [facility] [address] [place] [address] Dr. Jay WolfUAL DIFF REQNONormalThe [facility] Private HospitalComment on above: Performed By: #### CBC #### [facility] [address] [place] [address] Dr. Jay Avery (RBC) [Entitic mass]30.4 zgFgmsnj61.7-34.0The [facility] HospitalComment on above:Performed By: #### CBC #### [facility] [address] [place] [address] Dr. Jay QiuHC (RBC) [Mass/Vol]33.3 g/kQDicczr37.9-35.2The [facility] HospitalComment on above:Performed By: #### CBC #### [facility] [address] [place] [address] Dr. Jay lAvarez (RBC) [Entitic vol]91.5 dDLsatmm55.1-95.6The [facility] HospitalComment on above:Performed By: #### CBC #### [facility] [address] [place] [address] Dr. Jay Blas #0.7 103/ulNormal0.3-0.8The [facility] HospitalComment on above:Performed By: #### CBC #### [facility] [address] [place] [address] Dr. Jay Fischerocytes/100 WBC (Bld)6.3 %Normal1.7-12.0The [facility] Comment on above:Performed By: #### CBC #### [facility] [address] [place] [address] Dr. Jay Peralta #7.7 103/ulCritically high1.4-6.5The [facility] Comment on above:Performed By: #### CBC #### [facility] [address] [place] [address] Dr. Jay Chavisutrophils/100 WBC (Bld)74.2 %Nmsnjv10.0-75.0The [facility] HospitalComment on above:Performed By: #### CBC #### [facility] [address] [place] [address] Dr. Jay Hill mean volume (Bld) [Entitic vol]8.9 fLCritically low 9.5-13.5The [facility] HospitalComment on above:Performed By: #### CBC #### [facility] [address] [place] [address] Dr. Jay AdanT277 103/lzUocewo089-691Cux [facility] HospitalComment on above: Performed By: #### CBC #### [facility] [address] [place] [address] Dr. Jay RojoC4.57 106/ulNormal3.40-5.30The [facility] Campusment on above:Performed By: #### CBC #### [facility] [address] [address] [address] Jay StewartWBC10.4 103/ulNormal4.0-11.0The [facility] HospitalComment on above:Performed By: #### CBC #### [facility] [address] [address] [address] Jay Morales PROFILEon 37-33-8069Wetzmbl [Mass/Vol]5.0 g/dLNormal3.4-5.0 The [facility] HospitalComment on above:Performed By: #### TSH, LIVER, BMP #### [facility] [address] [place] [address] Dr. Jay StewartAlbumin/Globulin [Mass ratio]1.3 {ratio}NormalThe [facility] Private HospitalComment on above:Performed By: #### TSH, LIVER, BMP #### [facility] [address] [address] [address] Jay Frank [Catalytic activity/Vol]84 U/QXddorz04-841Ntx [facility] HospitalComment on above:Performed By: #### TSH, LIVER, BMP #### [facility] [address] [place] [address] Dr. Jay Morales [Catalytic activity/Vol]14 U/AKmctyt16-40Qug [facility] on above:Performed By: #### TSH, LIVER, BMP #### [facility] [address] [address] [address] Jay Gonzales [Catalytic activity/Vol]12 U/LCritically joj33-15Tjl [facility] on above:Performed By: #### TSH, LIVER, BMP #### [facility] [address] [place] [address] Dr. Jay Peña, CONJUGATED0.3 mg/dLNormal0.0-0.3The [facility] Comment on above:Performed By: #### TSH, LIVER, BMP #### [facility] [address] [address] [address] Jay StewartBilirubin [Mass/Vol]1.7 mg/dLCritically high0.2-1.3The [facility] HospitalComment on above:Performed By: #### TSH, LIVER, BMP #### [facility] [address] [place] [address] Dr. Jay StewartGlobulin (S) [Mass/Vol]3.9 g/dLNormalThe [facility] HospitalComment on above:Performed By: #### TSH, LIVER, BMP #### [facility] [address] [place] [address] Dr. Jay StewartProtein [Mass/Vol]8.9 g/dLCritically high6.1-8.2The [facility] HospitalComment on above:Performed By: #### TSH, LIVER, BMP #### [facility] [address] [place] [address] Dr. Jay StewartPROF CHEM 8 (BAS METB)on 16-99-3637Fgeop gap [Moles/Vol]14.9 mmol/LNormalCleveland Clinic Union HospitalComment on above:Performed By: #### TSH, LIVER, BMP #### [facility] [address] [place] [address] Dr. Jay StewartCalcium [Mass/Vol]9.4 mg/dLNormal8.5-10.1[facility] Comment on above:Performed By: #### TSH, LIVER, BMP #### [facility] [address] [place] [address] Dr. Jay StewartChloride [Moles/Vol]102 mmol/YExpjsr00-390Qmd [facility] Comment on above:Performed By: #### TSH, LIVER, BMP #### [facility] [address] [place] [address] Dr. Jay StewartCO2 [Moles/Vol]25.5 mmol/NYpqlke03.0-30.0The [facility] Comment on above:Performed By: #### TSH, LIVER, BMP #### [facility] [address] [place] [address] Dr. Jay StewartCreatinine [Mass/Vol]0.78 mg/dLNormal0.52-1.04The [facility] HospitalComment on above:Performed By: #### TSH, LIVER, BMP #### [facility] [address] [address] [address] Jay StewartGlucose [Mass/Vol]91 mg/eRLccqhw32-341Kcf [facility] Comment on above:Performed By: #### TSH, LIVER, BMP #### [facility] [address] [place] [address] Dr. Jay StewartPotassium [Moles/Vol]4.4 mmol/LNormal3.4-5.0The [facility] Comment on above:Performed By: #### TSH, LIVER, BMP #### [facility] [address] [address] [address] Jay StewartSodium [Moles/Vol]138 mmol/PIsicpw516-664Mws [facility] Comment on above:Performed By: #### TSH, LIVER, BMP #### [facility] [address] [place] [address] Dr. Jay StewartUrea nitrogen [Mass/Vol]14.0 mg/dLNormal6.4-19.3The [facility] HospitalComment on above:Performed By: #### TSH, LIVER, BMP #### [facility] [address] [place] [address] Dr. Jay Morin nitrogen/Creatinine [Mass ratio]17.9 mg/mgNoVeterans Health AdministrationComment on above:Performed By: #### TSH, LIVER, BMP #### [facility] [address] [place] [address] Dr. Jay Michele 21-82-4199LGA2.496 uIU/mLNormal0.430-3.750The [facility] HospitalComment on above:Performed By: #### TSH, LIVER, BMP #### [facility] [address] [place] [address] Dr. Jay Butts [facility] BELOWSelect Medical OhioHealth Rehabilitation Hospital - DublinComment on above: Result Comment: <0.34 UIU/ml HYPERTHYROID 0.34-5.60 UIU/ml EUTHYROID >5.60 UIU/ml HYPOTHYROIDPerformed By: #### TSH, LIVER, BMP #### [facility] [address] [address] [address] Jay StewartXR ABD FLAT_UPon 84-52-1463ZK ABD FLAT_UPEXAMINATION: XR ABD FLAT_UP HISTORY: Constipation [...] by: GILBERTO KUNZ Date: 2022-03-01 16:57[facility] Vital Signs Date TimeVital SignValuePerforming AlrcnfpcjGdomzlyw81-26-5628 08:56-0500Body yapijt040.46 cmKevin Pearl MD Work Phone: [phone] [place], [place] 359[address]11-05-2025 08:56-0500 Body skqjrsmydgy58.3 [degF]Kevin Pearl MD Work Phone: [phone]11-05-2025 08:56-0500 Diastolic blood ipqtbcbm83 mm[Hg]Kevin Pearl MD Work Phone: [facility]11-05-2025 08:56-0500 Heart rate89 /minKevin Pearl MD Work Phone: [phone] [place], [place] 359[address]11-05-2025 08:56-0500 Respiratory rate20 /minKevin Pearl MD Work Phone: [phone]-[facility]11-05-2025 08:56-0500 SaO2% (BldA) [Mass fraction]97 %Kevin Pearl MD Work Phone: [facility]11-05-2025 08:56-0500 Systolic blood iqkweazw615 mm[Hg]Kevin Pearl MD Work Phone: [phone]08-20-2025 13:53-0400 Body zvvdvo95.9 kgKevin Pearl MD Work Phone: [phone]08-20-2025 13:53-0400 Diastolic blood wgnmsdto98 mm[Hg]Kevin Pearl MD Work Phone: [phone] [address]08-20-2025 13:53-0400 Heart rate75 /minKevin Pearl MD Work Phone: [phone] [address]08-20-2025 13:53-0400 SaO2% (BldA) [Mass fraction]98 %Kevin Pearl MD Work Phone: [phone]08-20-2025 13:53-0400 Systolic blood oirufutb927 mm[Hg]Kevin Pearl MD Work Phone: [phone]04-07-2025 11:37-0400 Body .9 cmKevin Pearl MD Work Phone: [facility]ansonGuuzcozvef93-63-6258 11:37-0400Body mass index (BMI) [Ratio]21.01 kg/m2Kevin Pealr MD Work Phone: [facility]ansonHqzbmzwvak62-38-4537 11:37-0400Body temperature 97.5 [degF]Kevin Pearl MD Work Phone: [facility]ansonJbijrestfx41-75-8102 11:37-0400Body avstil88.17 kgKevin Pearl MD Work Phone: [facility]ansonXewflzzeuc89-30-8780 11:37-0400Diastolic blood oyyaegyj17 mm[Hg]Kevin Pearl MD Work Phone: [facility]ansonDhbollcmwn53-06-7225 11:37-0400Heart rate95 /min Kevin Pearl MD Work Phone: [facility]ansonSzpnclumnh79-50-3924 11:37-0400Respiratory rate20 /minKevin Pearl MD Work Phone: [facility]ansonKbqsqwkngr44-40-5273 11:37-5836UlD6% (BldA) [Mass fraction]98 %Kevin Pearl MD Work Phone: [facility]ansonIseivsvsgi11-85-7043 11:37-0400Systolic blood ppzaejyb602 mm[Hg]Kevin Pearl MD Work Phone: [facility]ansonOdtbciwbof47-33-3770 09:54-0500Body azxrve279.9 cmKevin Pearl MD Work Phone: [facility]ansonDtmarmrmwe99-95-0690 09:54-0500Body mass index (BMI) [Ratio]20.8 kg/m2Kevin Pearl MD Work Phone: [facility]ansonJetrtxnpqp24-26-7755 09:54-0500Body temperature 97.11 [degF]Kevin Pearl MD Work Phone: [facility]ansonUrxwsloxrf63-87-9201 09:54-0500Body .72 kgKevin Pearl MD Work Phone: [facility]ansonTwhoemtkvi87-91-3977 09:54-0500Diastolic blood mm[Hg]Kevin Pearl MD Work Phone: [facility]ansonGkuknjjaoa40-91-6516 09:54-0500Heart rate90 /min Kevin Pearl MD Work Phone: [facility]ansonQhdjdyncka84-75-3426 09:54-0500Respiratory rate20 /minKevin Pearl MD Work Phone: [facility]ansonMhzjigltzn26-93-8855 09:54-9539JrM5% (BldA) [Mass fraction]97 %Kevin Pearl MD Work Phone: [facility]ansonQiyekqvsce91-83-2341 09:54-0500Systolic blood zonbgcjv37 mm[Hg]Kevin Pearl MD Work Phone: [facility]ansonWyicppzecj39-19-0045 16:42-0400Body .32 cmC[facility]06-21-2024 16:42-0400Body mass index (BMI) [Percentile] Per age and sex46.3 %[facility]06-21-2024 16:42-0400Body mass index (BMI) [Ratio]21.3 kg/z4VzwdmedpvCleveland Clinic Mentor Hospital06-21-2024 16:42-0400Body lanuqvyjqiw91.5 [degF][facility]06-21-2024 16:42-0400Body ujnwad19.32 kgCleveland Clinic [facility] Hospital 05-15-2024 16:42-0400Diastolic blood sanjmodd75 mm[Hg][facility]06-21-2024 16:42-0400Heart rate90 /[facility] 05-15-2024 16:42-0400Respiratory rate18 /[facility] 05-15-2024 16:42-7411YlD6% (BldA) [Mass fraction]99 %[facility]06-21-2024 16:42-0400Systolic blood njkmruuo923 mm[Hg][facility] Encounters Encounter DateEncounter TypeCare ProviderFacilityStart: 09-29-2025 End: 40-78-1971hkqactuysrQedr Naderer MD Work Phone: -[facility] ClydeStart: 09-29-2025 End: 76-46-7482Pxrzjww encounter procedureKevin Pearl MD-[facility] [place] Work Phone: Start: 07-14-2025 End: 22-43-6130hipkgkcymmJiip Naderer MD Work Phone: [facility] Work Phone: Start: 07-14-2025 End: 58-98-2102Nyigwfc encounter procedureChristopher Jabari High DO-[facility] [place] Work Phone: Start: 03-01-2025 End: 92-36-5875Animbz Jaguar Pearl MD Work Phone: NOV[facility] CWM FMStart: 03-01-2025 End: 56-18-0891Nlmwns Jaguar Pearl MD Work Phone: NONO CWM FMStart: 03-01-2025 End: 34-25-2093Iohypx outpatient visit 25 minutesKevin Pearl MD Work Phone: [facility] CWM FMComment on above:Migraine without aura and without status migrainosus, not intractable (CMS/HCC) (Primary Dx); Autonomic dysfunction; Dysfunctional uterine bleedingStart: 03-01-2025 End: 32-56-8174swutnwasarCYKR NADERERNot AvailableStart: 02-11-2025 End: 68-53-5614Weuqhzatk Result EncounterKevin Pearl MD Work Phone: NOKM External Department UnsolicitedStart: 02-11-2025 End: 78-29-9840Imxlhrlqr Result EncounterKevin Pearl MD Work Phone: NOTQ External Department UnsolicitedStart: 01-27-2025 End: 74-37-4800Vjdqtuywm Result EncounterKevin Pearl MD Work Phone: NOLY External Department UnsolicitedStart: 01-27-2025 End: 19-84-6377Tkgoenygz Result Nikos Pearl MD Work Phone: NOWS External Department UnsolicitedStart: 01-26-2025 End: 80-67-6972Ptwvjl Jaguar Pearl MD Work Phone: [facility] CWM FMStart: 01-26-2025 End: 69-28-6127Cbjsbw Jaguar Pearl MD Work Phone: [facility] C[facility] FMStart: 01-26-2025 End: 77-79-5304ojmmurbapwFUFL NADERERNot AvailableStart: 01-26-2025 End: 94-62-3916Dmndoc outpatient visit 25 minutesKevin Pearl MD Work Phone: noms CW FMComment on above:Autonomic dysfunction (Primary Dx); Sinus headache; Chronic rhinosinusitis; Fatigue, unspecified type; Annual physical examStart: 01-26-2025 End: 39-42-9848Acwbrzy encounter procedureKevin Pearl MD Work Phone: noms HealthcareStart: 08-30-2024 End: 30-16-9605Weqrvpyhq Result EncounterKevin Pearl MD Work Phone: noms External Department UnsolicitedStart: 08-30-2024 End: 12-10-0044Jxdhyahrl Result EncounterKevin Pearl MD Work Phone: noms External Department UnsolicitedStart: 08-26-2024 End: 39-34-8327fyvrmekbnuJQHF NADERERNot AvailableStart: 05-26-2024 End: 98-01-7864bevzhwxhjfJWWZ NADERERNot AvailableStart: 05-15-2024 End: 28-20-9438dfbeqorezmUnpsyvjwbHarrison Community Hospital Work Phone: Start: 05-15-2024 End: 11-61-7114Lsqefko encounter procedureFirst[facility] [place] Work Phone: Start: 04-16-2024 End: 93-23-1484gpmkcumazkVSOY NADERERNot AvailableStart: 42-69-5975Termrokib for routine child health examination without abnormal findingsDR KEVIN Vicente [place] HospitalStart: 03-01-2022 End: 07-29-7045mpzgxjugiwOA KEVIN [place] NADERERFacility:R2Uabtg: 03-01-2022 End: 56-06-6043Gsqcmjmef for routine child health examination without abnormal findingsDR KEVIN [place] NADERERFacility:H1 Procedures DateProcedureProcedure DetailPerforming ClinicianStart: 61-63-0005BEQ CBC WITH AUTO DIFFKevin Pearl MD Work Phone: Start: 56-68-2313TDMR SCREEN*Kevin Pearl MD Work Phone: Start: 36-13-9072XZO CBC WITH AUTO DIFFMarc Dae GONGORA Work Phone: Start: 05-27-2876CRUBL IRON AND TIBCMarc Dae GONGORA Work Phone: Start: 38-07-6649OC Ribs - bilateral GE 3 Views and Chest PAMarc Dae GONGORA Work Phone: Plan of Treatment DateCare ActivityDetailAuthorStart: 54-49-3827PGFXM-19 Vaccine ( season)COVID-19 Vaccine ( season)[facility] HealthcareStart: 07-26-2025 Influenza vaccinationNOMS HealthcareStart: 05-31-2025 End: 55-13-8344Otiwqkv encounter /07/2025 2:00 PM EDT Office Visit [facility] [address] [place] [address] Kevin Pearl MD [address] [place] [address] [facility] CW FMStart: 03-01-2025 End: 66-09-6372Xzyczbu encounter procedureNOMS CWM FMComment on above:Arrived Start: 01-26-2025 End: 73-86-1132Cfvdn metabolic 1998 panel - Serum or PlasmaBasic metabolic panel Lab Routine Annual physical exam Expected: 01/26/2025 (Approximate), Expires: 01/26/2026[facility] Work Phone: Comment on above:Expected: 01/26/2025 (Approximate), Expires: 01/26/2026Start: 01-26-2025 End: 60-17-6001DFO W Auto Differential panel - BloodCBC and differential Lab Routine Annual physical exam Expected: 01/26/2025 (Approximate), Expires: 0 01/26/2026NOMS HealthcareComment on above:Expected: 01/26/2025 (Approximate), Expires: 01/26/2026Start: 01-26-2025 End: 20-10-9245Llscqrujy (Vitamin B12) [Mass/volume] in Serum or PlasmaVitamin B12 Lab Routine Fatigue, unspecified type Expected: 01/26/2025 (Approximate), Expires: 01/26/2026NOMS HealthcareComment on above:Expected: 01/26/2025 (Approximate), Expires: 01/26/2026Start: 01-26-2025 End: 49-16-5110Amcergbv [Mass/volume] in Serum or PlasmaFerritin Lab Routine Fatigue, unspecified type Expected: 01/26/2025 (Approximate), Expires: 01/27/20NONC HealthcareComment on above:Expected: 01/26/2025 (Approximate), Expires: 01/26/2026Start: 01-26-2025 End: 92-48-6598Trugukj function 2000 panel - Serum or PlasmaHepatic function panel Lab Routine Annual physical exam Expected: 01/26/2025 (Approximate), Expires: 01/26/2026NONC HealthcareComment on above:Expected: 01/26/2025 (Approximate), Expires: 01/26/2026Start: 01-26-2025 End: 39-77-6254Dwau and Iron binding capacity panel - Serum or PlasmaIron and TIBC Lab Routine Fatigue, unspecified type Expected: 01/26/2025 (Approximate), Expires: 01/26/2026NONC HealthcareComment on above:Expected: 01/26/2025 (Approximate), Expires: 01/26/2026Start: 01-26-2025 End: 99-70-8214Dhnegdqnsfs [Units/volume] in Serum or PlasmaTSH Lab Routine Autonomic dysfunction Fatigue, unspecified type Expected: 01/26/2025 (Approximate),Expires: 01/26/2026NOMS HealthcareComment on above:Expected: 01/26/2025 (Approximate), Expires: 01/26/2026Start: 01-26-2025 End: 62-18-8267Xeovvzcvn (T4) free [Mass/volume] in Serum or PlasmaT4, free Lab Routine Fatigue, unspecified type Expected: 01/26/2025 (Approximate), Expires: 01/26/2026NONC HealthcareComment on above:Expected: 01/26/2025 (Approximate), Expires: 01/26/2026Start: 36-06-9897Cwxvcfguj vaccinationInfluenza Vaccine (#1) [facility] HealthcareStart: 51-57-8422Yoeuzlbjl B Vaccines (1 of 3 - 19+ 3-dose series)Hepatitis B Vaccines (1 of 3 - 19+ 3-dose series)[facility] HealthcareStart: 07-08-1649Jxnufpirhlwke B Vaccine (1 of 2 - Standard)Meningococcal B Vaccine (1 of 2 - Standard)[facility] HealthcareStart: 85-43-3383RSP Vaccines (1 - 3-dose series) HPV Vaccines (1 - 3-dose series)[facility] HealthcareStart: 72-15-2643Wlybrtd of varicella vaccinationVaricella Vaccines (1 of 2 - 13+ 2-dose series)N[facility] HealthcareStart: 89-24-1097RVbB/Tdap/Td Vaccines (1 - Tdap)DTaP/Tdap/Td Vaccines (1 - Tdap)[facility] HealthcareStart: 19-87-2405XPK Vaccines (1 of 1 - Standard series)MMR Vaccines (1 of 1 - Standard series)[facility] HealthcareFluoroscopy of upper gastrointestinal tractOrlando Health [facility] Payers DatePayer CategoryPayerPolicy [id number] [id number] Health InsuranceMEDICAL MUTUAL [id number] 2..[id number] 2..1.241879.3.57[id number] 2..1.247873.3.57[id number] 2..1.588106.3.57[id number] ..1.441997.3.57[id number] 2.1.750782.3.57[id number] [id number] Social History DateTypeDetailFacilityTobacco smoking status NHISUnknown if ever smokedCoshocton Regional Medical Center Work Phone: Start: 61-89-8875Iup Assigned At BirthAkron Children's Hospitaltart: 04-16-2024 End: 77-62-6269Tvvhuvk smoking status NHISNever smoked tobaccoNOMS Healthcare Start: 06-17-8803Aaenzdy use and exposureSmokeless tobacco non-userNOMS HealthcareStart: 08-25-2024 End: 85-90-0635Zicmfne of Social functionNOMS HealthcareStart: 08-25-2024 End: 89-53-1120G4550 Health LiteracyNOMS HealthcareStart: 88-04-8623Dnv often do you need to have someone help you when you read instructions, pamphlets, or other written material from your doctor or pharmacy [SILS]NeverNOMS HealthcareDo you belong to any clubs or organizations such as orthodox groups, unions, fraVeterans Business Services Organization or athletic groups, or school groups?YesNOMS HealthcareAre [...] months, were you homeless or living in chcf [including now]?NoNOMS HealthcareStart: 04-02-2024 Gender identityIdentifies as female gender (finding)[facility] HealthcareStart: 26-47-2516Icbfdu orientationHeterosexual (finding)[facility]S HealthcareTobacco smoking status NHISUnknown if ever smokedCoshocton Regional Medical Center Work Phone: SexFemale (finding)[facility] Evaluation note 07-14-2025 Note Date & PtqoUuibEyhuiuxy51-87-6830 Evaluation note* Diagnosis Onset Date Resolution Status Admit Date Chronic migraine without aura or status migrainosus acuteAugust 2024 1:45pmEpstein Sarmiento virus infectionacuteAugust 2024 1:45pmChronic fatigueacuteNovember 2024 8:38amChronic migraine without aura or status migrainosusacuteNovember 2024 8:38amEarly satietyacuteNovember 2024 8:38amEpstein Sarmiento virus infectionacuteNov2024 8:38am [facility] Work Phone: History of Present illness Narrative 03-01-2025 Note Date & WbjuXnjfJyjemqmk28-62-0790 History of Present illness Narrative* Kevin Pearl [...] to fioricet. Try maxalt. Relevant Medications rizatriptan SPANISH SPEAKING NANNY (Maxalt-SPANISH SPEAKING NANNY) 5 MG disintegrating tablet Dysfunctional uterine bleeding Irregular periods and start OCP. 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 Start flonase. Relevant Medications kruwijflbc-xfqobdtylhldu-ywuqwarl 50-325-40 MG tablet Other Visit Diagnoses Annual physical exam Relevant Orders Basic metabolic panel CBC and differential Hepatic function panel [facility] Evaluation note Note Date & TypeNoteFacilityEvaluation note* Diagnosis Onset Date Resolution Status Bee sting reaction acute [facility] Work Phone: Evaluation note Note Date & TypeNoteFacilityEvaluation note* Diagnosis Bee sting reaction, accidental or unintentional, subsequent encounter- Primary Acute pain of left knee Autonomic dysfunction- Primary Sinus headache Headache Chronic rhinosinusitis Unspecified sinusitis (chronic) Fatigue, unspecified type Annual physical exam Routine general medical examination at a health care facility documented in this encounter [facility] Healthcare Evaluation note Note Date & TypeNoteFacilityEvaluation [...] female genital tract documented in this encounter [facility] Healthcare Evaluation note Note Date & TypeNoteFacilityEvaluation note* Diagnosis Onset Date Resolution Status Admit Date Chronic migraine without aura or status migrainosus acuteAugust 2024 1:45pmEpstein Sarmiento virus infectionacuteAugus2024 1:45pm [facility] Work Phone: Reason for referral (narrative) Note Date & TypeNoteFacilityReason for referral (narrative)No reason for referral information availableCoshocton Regional Medical Center Work Phone: Summary Purpose Family History [...] and content) DATE CREATED AUTHOR 03/07/2022 [facility] DATE CREATED AUTHOR AUTHOR'S YESIKA PINEDA 03/02/2025 [facility] EPIC Care Teams (unrecognized sec [...] Kevin Pearl MD [address] [place] [address] PCP - GeneralFamily Medicine04/16/24 Kevin Pearl MD [address] [place] [address] PCP - [facility] Qscezgntgq11/1/ Kevin Pearl MD [address] [place] [address] PCP - [place] Vfwbckgolc08/1/24Team MemberRelationshipSpecialtyStart DateEnd Date Kevin Pearl MD [address] [place] [address] PCP - GeneralFamily Medicine04/16/24 Kevin Pearl MD [address] [place] [address] PCP - [facility] Ooaartpeqe73/1/ Kevin Pearl MD [address] [place] [address] PCP - [place] Muijboeoeb64/1/24Te MemberRelationshipSpecialtyStart DateEnd Date Kevin Pearl MD [address] [place] [address] PCP - [facility]04/16/24 Kevin Pearl MD [address] [place] [address] PCP - [facility] Twesvyyrtm58/1/ Kevin Pearl MD [address] [place] [address] PCP - [place] Lkgmyvzdji14/1/24Te MemberRelationshipSpecialtyStart DateEnd Date Kevin Pearl MD [address] [place] [address] PCP - [facility]04/16/24 Kevin Pearl MD [address] [place] [address] PCP - [facility] Pcuohhhhik19/1/ Kevin Pearl MD [address] [place] [address] PCP - [place] Ezsdahjpaf54/1/24Te MemberRelationshipSpecialtyStart DateEnd Date Kevin Pearl MD [address] [place] [address] PCP - [facility]04/16/24 Kevin Pearl MD [address] [place] [address] PCP - [facility] Mdwqzrklcl96/1/ Kevin Pearl MD [address] [place] [address] PCP - [place] Ynspwxbjnm49/1/24 Team Status: Active Member Role Status Dates Kevin Pearl MD Primary Care Provider Active Team Status: Inactive Member Role Status Dates Aftab Barboza DO Attending Provider Active Start: July 14, 2025 End: July 14, 2025MarAlda Rae Care ProviderActiveStart: July 14, 2025 End: July 14, 2025Team MemberRelationshipSpecialtyStart DateEnd Date Kevin Pearl MD PCP - [facility]04/16/24 Kevin Pearl MD [address] [place] [address] [facility] Wnegxwyxzc95/1/ Kevin Pearl MD [address] [place] [address] PCP - [place] Vrpmxwktrl01/1/244 Team Status: Active Member Role/Relationship Status Dates Kevin Pearl MD Primary Care Provider Active Team Status: Inactive Member Role/Relationship Status Dates Aftab Barboza DO Attending Provider Active Start: July 14, 2025 End: July 14, 2025[facility] BridgeAlda Rae Care ProviderActiveStart: July 14, 2025 End: [...] BE BASED ON THE PRIMARY CLINICAL RECORDS. [employer] [facility]. provides no warranty or guarantee of the accuracy or completeness of information in this document.
[2025-10-25 16:59] LABS: Alanine Aminotransferase 19 U/L (14-59); Albumin Globulin Ratio 1.2; Albumin Level 4.2 g/dL (3.4-5.0); Alkaline Phosphatase 60 U/L (46-116); Anion Gap 14.1; Aspartate Amino Transferase 13 U/L (15-37); Blood Urea Nitrogen 8.0 mg/dL (7.0-18.0); Calcium 9.1 mg/dL (8.5-10.1); Carbon Dioxide 25.7 mmol/L (21.0-32.0); Chloride 105 mmol/L (98-107); Estimated GFR (African America >60 (>=60 mL/min/1.73m^2); Estimated GFR (Non-African Ame >60 (>=60 mL/min/1.73m^2); Globulin 3.5 g/dL; Glucose 97 mg/dL (74-106); Potassium 3.8 mmol/L (3.5-5.1); Sodium 141 mmol/L (136-145); TSH W/ REFLEX FT4 0.488 uIU/mL (0.358-3.740); Total Protein 7.7 g/dL (6.4-8.2)
[2025-10-25 17:03] LABS: Iron 35.0 ug/dL (50.0-170.0); Percent Iron Saturation 10.8 %; Total Iron Binding Capacity 325.0 ug/dL (250.0-450.0)
[2025-10-26 10:18] LABS: Reticulocyte Pct Auto 1.61 % (0.60-3.10)
[2025-10-26 10:47] LABS: Ferritin 29.0 ng/mL (8.0-252.0)
[2025-10-27 04:07] LABS: FSH 5.3 mIU/mL (.)
== END 2025-10-25 16:09 | disposition home or self-care (01) ==
PROVIDERS: PCP Family Medicine; Visit Provider Internal Medicine Infectious Disease
DX: R53.82 Chronic fatigue, unspecified (principal); G43.709 Chronic migraine without aura, not intractable, without status migrainosus; N92.6 Irregular menstruation, unspecified
CPT/HCPCS: 36415; 80053; 82670; 82728; 83001; 83002; 83540; 83550; 84146; 84443; 85025; 85045; 85652; 86140; 86618